=== PATIENT | male | born 1965 | race Caucasian/White ===

== ENCOUNTER 2016-08-02 12:28 | Emergency (ER) | payer OTHER ==
--- NOTE | 2016-08-02 13:48 | ED ---
General Adult HPI - General Chief complaint: Psychiatric Symptoms Stated complaint: Mental Health Time Seen by Provider: 08/02/16 13:32 Source: patient, RN notes reviewed Mode of arrival: ambulatory Limitations: no limitations - History of Present Illness Initial comments: Patient's a 51-year-old male who presents emergency room today with a chief complaint depression. He states he's been more depressed lately. He states that he still depressed about losing his that happened 3 years ago. States car broke down. States is living with a roommate who is an alcoholic and he feels like he has to walk on pins and needles around the house. Patient states all these things seem to be building up in recently his noticed that he does not seem to want to get out of bed. He states he has been more depressed. He denies any thoughts of suicide. Denies any homicidal ideation. Patient denies any other complaints or symptoms at this time. Patient denies any recent fever, chills, shortness of breath, chest pain, back pain, abdominal pain, nausea or vomiting, numbness or tingling, dysuria or hematuria, constipation or diarrhea, headaches or visual changes, or any other complaints. - Related Data Home Medications Medication Instructions Recorded Confirmed Albuterol Inhaler [Ventolin Hfa 2 puff INHALATION RT-Q6H PRN 12/17/15 08/02/16 Inhaler] Albuterol Nebulized [Ventolin 2.5 mg INHALATION RT-Q4H PRN 12/17/15 08/02/16 Nebulized] Cetirizine HCl 10 mg PO DAILY 12/17/15 08/02/16 Gemfibrozil [Gemfibrozil] 600 mg PO BID 12/17/15 08/02/16 Montelukast [Singulair] 10 mg PO HS 12/17/15 08/02/16 Pravastatin Sodium [Pravachol] 40 mg PO DAILY 12/17/15 08/02/16 amLODIPine [Norvasc] 5 mg PO DAILY 12/17/15 08/02/16 predniSONE 10 mg PO DAILY 08/02/16 08/02/16 Allergies Allergy/AdvReac Type Severity Reaction Status Date / Time cephalexin monohydrate Allergy Nausea & Verified 08/02/16 13:55 [From Keflex] Vomiting ergocalciferol (vitamin D2) Allergy WEAKNESS Verified 08/02/16 13:55 [From Vitamin D2] Review of Systems ROS Statement: Those systems with pertinent positive or pertinent negative responses have been documented in the HPI. ROS Other: All systems not noted in ROS Statement are negative. Past Medical History Past Medical History: Asthma, COPD, Hyperlipidemia, Hypertension History of Any Multi-Drug Resistant Organisms: None Reported Past Surgical History: No Surgical Hx Reported Past Psychological History: Depression Smoking Status: Current every day smoker Past Alcohol Use History: Rare Past Drug Use History: Marijuana - Past Family History Father Family Medical History: Asthma General Exam - General Exam Comments Initial Comments: General: The patient is awake and alert, in no distress, and does not appear acutely ill. Eye: Pupils are equal, round and reactive to light, extra-ocular movements are intact. No nystagmus. There is normal conjunctiva bilaterally. No signs of icterus. Ears, nose, mouth and throat: There are moist mucous membranes and no oral lesions. Neck: The neck is supple, there is no tenderness or JVD. Cardiovascular: There is a regular rate and rhythm. No murmur, rub or gallop is appreciated. Respiratory: Lungs are clear to auscultation, respirations are non-labored, breath sounds are equal. No wheezes, stridor, rales, or rhonchi. Musculoskeletal: Normal ROM, no tenderness. Strength 5/5. Sensation intact. Pulses equal bilaterally 2+. Neurological: A&O x 3. CN II-XII intact, There are no obvious motor or sensory deficits. Coordination appears grossly intact. Speech is normal. Skin: Skin is warm and dry and no rashes or lesions are noted. Psychiatric: Cooperative. Limitations: no limitations Course Vital Signs 08/02/16 13:06 Temperature 99.0 F Pulse Rate 74 Respiratory 20 Rate Blood Pressure 138/74 O2 Sat by Pulse 98 Oximetry Medical Decision Making - Medical Decision Making 51-year-old male coming in for depression. Denies any suicidal thoughts or plans. Patient has been seen here in the emergency room by mental health. They recommend the patient may be discharged and follow-up with crisis line to set up a appointment for Thursday. Patient is wearing this plan states understanding and is in agreement with it. He is been advised that he may return to emergency room if any symptoms increase or worsen or for any other concerns. - Lab Data Lab Results 05/06/17 Range/Units 13:26 Urine Opiates Screen Not Detected (NotDetected) Ur Oxycodone Screen Not Detected (NotDetected) Urine Methadone Screen Not Detected (NotDetected) Ur Propoxyphene Screen Not Detected (NotDetected) Ur Barbiturates Screen Not Detected (NotDetected) U Tricyclic Antidepress Detected H (NotDetected) Ur Phencyclidine Scrn Not Detected (NotDetected) Ur Amphetamines Screen Not Detected (NotDetected) U Methamphetamines Scrn Not Detected (NotDetected) U Benzodiazepines Scrn Not Detected (NotDetected) Urine Cocaine Screen Not Detected (NotDetected) U Marijuana (THC) Screen Not Detected (NotDetected) Disposition Clinical Impression: Depression Disposition: HOME SELF-CARE Condition: Good Instructions: Depression (ED) Additional Instructions: Please follow-up with the crisis line as discussed here in the emergency room. Please return here to emergency room if any symptoms increase or worsen or for any other concerns. Time of Disposition: 15:14
[2016-08-02 15:49] VITALS: BP 133/77; PULSE 69; RESP 18; TEMP 97.8
== END 2016-08-02 15:49 | disposition home or self-care (01) ==
LOC: EC 12:28
DX: F32.9 Major depressive disorder, single episode, unspecified (principal); I10 Essential (primary) hypertension; E78.5 Hyperlipidemia, unspecified; F17.200 Nicotine dependence, unspecified, uncomplicated; Z79.52 Long term (current) use of systemic steroids; Z88.1 Allergy status to other antibiotic agents; Z88.8 Allergy status to other drugs, medicaments and biological substances; Z79.899 Other long term (current) drug therapy
CPT/HCPCS: 80306; 82075; 99285

== ENCOUNTER 2019-09-03 11:27 | Emergency (ER) | payer OTHER ==
[2019-09-03 11:32] VITALS: RESP 18; TEMP 97.4
[2019-09-03 11:36] LABS: Glucose,Whole Blood 114 mg/dL (75-99)
[2019-09-03] MEDS ORDERED: LORazepam 2 MG/ML INJ IV STA (11:46)
--- NOTE | 2019-09-03 12:16 | ED ---
Anxiety HPI - General Chief Complaint: Anxiety Stated Complaint: Anixety Time Seen by Provider: 09/03/19 11:32 Source: patient, EMS, RN notes reviewed, old records reviewed Mode of arrival: EMS - History of Present Illness Initial Comments: 54-year-old male presents emergency department today with complaints of anxiety and shakiness. Patient's been under immense stress stating that he has not been able to calm down and stop his racing thoughts. He states he's had some jose miguel mplated suicidal thoughts. Patient reports that he felt that his heart was racing today and is concerned this problem with his heart. He states that he does complain of some nausea and is unable to eat because of his stress and anxiety. Patient states that he has no previous cardiac history. Patient is a smoker. - Related Data Home Medications: Home Medications Medication Instructions Recorded Confirmed Albuterol Inhaler (Mhu) [Ventolin 2 puff INHALATION RT-Q6H PRN 12/17/15 08/02/16 Hfa Inhaler (Mhu)] Albuterol Nebulized [Ventolin 2.5 mg INHALATION RT-Q4H PRN 12/17/15 08/02/16 Nebulized] Cetirizine HCl 10 mg PO DAILY 12/17/15 08/02/16 Gemfibrozil 600 mg PO BID 12/17/15 08/02/16 Montelukast [Singulair] 10 mg PO HS 12/17/15 08/02/16 Pravastatin Sodium [Pravachol] 40 mg PO DAILY 12/17/15 08/02/16 amLODIPine [Norvasc] 5 mg PO DAILY 12/17/15 08/02/16 predniSONE 10 mg PO DAILY 08/02/16 08/02/16 Allergies/Adverse Reactions: Allergies Allergy/AdvReac Type Severity Reaction Status Date / Time cephalexin monohydrate Allergy Nausea & Verified 09/03/19 11:29 [From Keflex] Vomiting ergocalciferol (vitamin D2) Allergy WEAKNESS Verified 09/03/19 11:29 [From Vitamin D2] Review of Systems ROS Statement: Those systems with pertinent positive or pertinent negative responses have been documented in the HPI. ROS Other: All systems not noted in ROS Statement are negative. Past Medical History Past Medical History: Asthma, COPD, Hyperlipidemia, Hypertension History of Any Multi-Drug Resistant Organisms: None Reported Past Surgical History: No Surgical Hx Reported Past Psychological History: Anxiety, Depression Smoking Status: Current every day smoker Past Alcohol Use History: Occasional Past Drug Use History: Marijuana - Past Family History Father Family Medical History: Asthma General Exam - General Exam Comments Initial Comments: 54-year-old male. Alert and oriented. No significant distress. General appearance: alert, anxious Head exam: Present: atraumatic, normocephalic, normal inspection Eye exam: Present: normal appearance, PERRL, EOMI. Absent: scleral icterus, conjunctival injection, periorbital swelling ENT exam: Present: normal exam, mucous membranes moist Neck exam: Present: normal inspection. Absent: tenderness, meningismus, lymphadenopathy Respiratory exam: Present: normal lung sounds bilaterally, other (Patient has minimal wheeze but reports a smoker. Denies any dyspnea.). Absent: respiratory distress, wheezes, rales, rhonchi, stridor Cardiovascular Exam: Present: regular rate, normal rhythm, normal heart sounds. Absent: systolic murmur, diastolic murmur, rubs, gallop, clicks GI/Abdominal exam: Present: soft, normal bowel sounds. Absent: distended, tenderness, guarding, rebound, rigid Back exam: Present: normal inspection Neurological exam: Present: alert, oriented X3, CN II-XII intact Psychiatric exam: Present: normal mood, agitated, anxious (Patient is anxious and shaky.). Absent: normal affect Skin exam: Present: warm, dry, intact, normal color. Absent: rash Course Vital Signs 09/03/19 11:29 Temperature 97.4 F L Pulse Rate 97 Respiratory 18 Rate Blood Pressure 124/81 O2 Sat by Pulse 100 Oximetry Medical Decision Making - Medical Decision Making This Patient is a 54-year-old male presents return today with acute anxiety. He states he has been under a lot of stress at home and feels overwhelmed. He stated that he did have some palpitations once occurred. He arrived quite shaky and anxious. He is given IV fluids, did have a cardiac workup which had a normal EKG and normal troponin. Chest x-ray shows COPD and is a smoker but he denies any acute dyspnea. Patient's labs are otherwise unremarkable. Patient was given Ativan and is resting comfortably in bed with shaky and anxious appearing. He didn't mention some passive suicidal thoughts but no plan. He agreed to see EPS. EPS evaluated the Patient and agreed that Patient can follow-up with his [facility]. He signed a safety plan and knows to return if necessary. Patient understands treatment plan will comply. Advised to continue Xanax at home. - Lab Data Result diagrams: 09/03/19 12:00 09/03/19 12:00 Lab Results 09/03/19 09/03/19 09/03/19 Range/Units 11:34 12:00 12:00 WBC 10.2 (3.8-10.6) k/uL RBC 5.00 (4.30-5.90) m/uL Hgb 15.7 (13.0-17.5) gm/dL Hct 47.0 (39.0-53.0) % MCV 94.0 (80.0-100.0) fL MCH 31.4 (25.0-35.0) pg MCHC 33.3 (31.0-37.0) g/dL RDW 12.9 (11.5-15.5) % Plt Count 303 (150-450) k/uL Neutrophils % 72 % Lymphocytes % 17 % Monocytes % 5 % Eosinophils % 4 % Basophils % 1 % Neutrophils # 7.4 (1.3-7.7) k/uL Lymphocytes # 1.8 (1.0-4.8) k/uL Monocytes # 0.5 (0-1.0) k/uL Eosinophils # 0.4 (0-0.7) k/uL Basophils # 0.1 (0-0.2) k/uL PT 10.0 (9.0-12.0) sec INR 1.0 (<1.2) APTT 20.8 L (22.0-30.0) sec Sodium (137-145) mmol/L Potassium (3.5-5.1) mmol/L Chloride (98-107) mmol/L Carbon Dioxide (22-30) mmol/L Anion Gap mmol/L BUN (9-20) mg/dL Creatinine (0.66-1.25) mg/dL Est GFR (CKD-EPI)AfAm (>60 ml/min/1.73 sqM) Est GFR (CKD-EPI)NonAf (>60 ml/min/1.73 sqM) Glucose (74-99) mg/dL POC Glucose (mg/dL) 114 H (75-99) mg/dL POC Glu [employer] ID Tessaa, II, Truong Calcium (8.4-10.2) mg/dL Magnesium (1.6-2.3) mg/dL Total Bilirubin (0.2-1.3) mg/dL AST (17-59) U/L ALT (4-49) U/L Alkaline Phosphatase (38-126) U/L Troponin I (0.000-0.034) ng/mL NT-Pro-B Natriuret Pep pg/mL Total Protein (6.3-8.2) g/dL Albumin (3.5-5.0) g/dL Urine Opiates Screen (NotDetected) Ur Oxycodone Screen (NotDetected) Urine Methadone Screen (NotDetected) Ur Propoxyphene Screen (NotDetected) Ur Barbiturates Screen (NotDetected) U Tricyclic Antidepress (NotDetected) Ur Phencyclidine Scrn (NotDetected) Ur Amphetamines Screen (NotDetected) U Methamphetamines Scrn (NotDetected) U Benzodiazepines Scrn (NotDetected) Urine Cocaine Screen (NotDetected) U Marijuana (THC) Screen (NotDetected) Serum Alcohol mg/dL 09/03/19 09/03/19 09/03/19 Range/Units 12:00 12:00 12:00 WBC (3.8-10.6) k/uL RBC (4.30-5.90) m/uL Hgb (13.0-17.5) gm/dL Hct (39.0-53.0) % MCV (80.0-100.0) fL MCH (25.0-35.0) pg MCHC (31.0-37.0) g/dL RDW (11.5-15.5) % Plt Count (150-450) k/uL Neutrophils % % Lymphocytes % % Monocytes % % Eosinophils % % Basophils % % Neutrophils # (1.3-7.7) k/uL Lymphocytes # (1.0-4.8) k/uL Monocytes # (0-1.0) k/uL Eosinophils # (0-0.7) k/uL Basophils # (0-0.2) k/uL PT (9.0-12.0) sec INR (<1.2) APTT (22.0-30.0) sec Sodium 137 (137-145) mmol/L Potassium 4.4 (3.5-5.1) mmol/L Chloride 106 (98-107) mmol/L Carbon Dioxide 20 L (22-30) mmol/L Anion Gap 11 mmol/L BUN 11 (9-20) mg/dL Creatinine 0.84 (0.66-1.25) mg/dL Est GFR (CKD-EPI)AfAm >90 (>60 ml/min/1.73 sqM) Est GFR (CKD-EPI)NonAf >90 (>60 ml/min/1.73 sqM) Glucose 110 H (74-99) mg/dL POC Glucose (mg/dL) (75-99) mg/dL POC Glu [employer] ID Calcium 9.7 (8.4-10.2) mg/dL Magnesium 2.0 (1.6-2.3) mg/dL Total Bilirubin 0.7 (0.2-1.3) mg/dL AST 37 (17-59) U/L ALT 32 (4-49) U/L Alkaline Phosphatase 54 (38-126) U/L Troponin I <0.012 (0.000-0.034) ng/mL NT-Pro-B Natriuret Pep 109 pg/mL Total Protein 7.6 (6.3-8.2) g/dL Albumin 4.4 (3.5-5.0) g/dL Urine Opiates Screen (NotDetected) Ur Oxycodone Screen (NotDetected) Urine Methadone Screen (NotDetected) Ur Propoxyphene Screen (NotDetected) Ur Barbiturates Screen (NotDetected) U Tricyclic Antidepress (NotDetected) Ur Phencyclidine Scrn (NotDetected) Ur Amphetamines Screen (NotDetected) U Methamphetamines Scrn (NotDetected) U Benzodiazepines Scrn (NotDetected) Urine Cocaine Screen (NotDetected) U Marijuana (THC) Screen (NotDetected) Serum Alcohol <10 mg/dL 09/03/19 Range/Units 12:00 WBC (3.8-10.6) k/uL RBC (4.30-5.90) m/uL Hgb (13.0-17.5) gm/dL Hct (39.0-53.0) % MCV (80.0-100.0) fL MCH (25.0-35.0) pg MCHC (31.0-37.0) g/dL RDW (11.5-15.5) % Plt Count (150-450) k/uL Neutrophils % % Lymphocytes % % Monocytes % % Eosinophils % % Basophils % % Neutrophils # (1.3-7.7) k/uL Lymphocytes # (1.0-4.8) k/uL Monocytes # (0-1.0) k/uL Eosinophils # (0-0.7) k/uL Basophils # (0-0.2) k/uL PT (9.0-12.0) sec INR (<1.2) APTT (22.0-30.0) sec Sodium (137-145) mmol/L Potassium (3.5-5.1) mmol/L Chloride (98-107) mmol/L Carbon Dioxide (22-30) mmol/L Anion Gap mmol/L BUN (9-20) mg/dL Creatinine (0.66-1.25) mg/dL Est GFR (CKD-EPI)AfAm (>60 ml/min/1.73 sqM) Est GFR (CKD-EPI)NonAf (>60 ml/min/1.73 sqM) Glucose (74-99) mg/dL POC Glucose (mg/dL) (75-99) mg/dL POC Glu [employer] ID Calcium (8.4-10.2) mg/dL Magnesium (1.6-2.3) mg/dL Total Bilirubin (0.2-1.3) mg/dL AST (17-59) U/L ALT (4-49) U/L Alkaline Phosphatase (38-126) U/L Troponin I (0.000-0.034) ng/mL NT-Pro-B Natriuret Pep pg/mL Total Protein (6.3-8.2) g/dL Albumin (3.5-5.0) g/dL Urine Opiates Screen Not Detected (NotDetected) Ur Oxycodone Screen Not Detected (NotDetected) Urine Methadone Screen Not Detected (NotDetected) Ur Propoxyphene Screen Not Detected (NotDetected) Ur Barbiturates Screen Not Detected (NotDetected) U Tricyclic Antidepress Not Detected (NotDetected) Ur Phencyclidine Scrn Not Detected (NotDetected) Ur Amphetamines Screen Not Detected (NotDetected) U Methamphetamines Scrn Not Detected (NotDetected) U Benzodiazepines Scrn Detected H (NotDetected) Urine Cocaine Screen Not Detected (NotDetected) U Marijuana (THC) Screen Detected H (NotDetected) Serum Alcohol mg/dL 09/03/19 12:15 EKG shows normal sinus rhythm, normal EKG. Ventricular rate of 91 beats were minute period. It was 156 ms. Frustration is 90 ms. QT QTc is 380/467 ms. - Radiology Data Radiology results: report reviewed Chest x-ray shows evidence of COPD. Disposition Clinical Impression: Anxiety Disposition: HOME SELF-CARE Condition: Good Instructions (If sedation given, give patient instructions): Generalized Anxiety Disorder (ED) Additional Instructions: Please use medication of Xanax at home as discussed. Please follow up with family doctor if symptoms have not improved over the next two days. Please return to the emergency room if your symptoms increase or worsen or for any other concerns. Is patient prescribed a controlled substance at d/c from ED?: No Referrals: Taina Osman MD [Primary Care Provider] - 1-2 days Time of Disposition: 14:31
[2019-09-03 12:21] LABS: Basophils # (A) 0.1 k/uL (0-0.2); Basophils % (A) 1 %; Eosinophils # (A) 0.4 k/uL (0-0.7); Eosinophils % (A) 4 %; HGB 15.7 gm/dL (13.0-17.5); Lymphocytes # (A) 1.8 k/uL (1.0-4.8); Lymphocytes % (A) 17 %; MCH 31.4 pg (25.0-35.0); MCHC 33.3 g/dL (31.0-37.0); Mean Platelet Volume 8.2; Monocytes # (A) 0.5 k/uL (0-1.0); Monocytes % (A) 5 %; Neutrophils # (A) 7.4 k/uL (1.3-7.7); Neutrophils % (A) 72 %; Platelet Count 303 k/uL (150-450); RDW 12.9 % (11.5-15.5); WBC 10.2 k/uL (3.8-10.6)
[2019-09-03 12:29] LABS: ALT 32 U/L (4-49); AST 37 U/L (17-59); African American GFR (CKD) >90 (>60 ml/min/1.73 sqM); Albumin 4.4 g/dL (3.5-5.0); Alcohol <10 mg/dL; Alkaline Phosphatase 54 U/L (38-126); Anion Gap 11 mmol/L; Blood Urea Nitrogen 11 mg/dL (9-20); Calcium 9.7 mg/dL (8.4-10.2); Carbon Dioxide 20 mmol/L (22-30); Chloride 106 mmol/L (98-107); Glucose 110 mg/dL (74-99); Non-African American GFR(CKD) >90 (>60 ml/min/1.73 sqM); Potassium 4.4 mmol/L (3.5-5.1); Sodium 137 mmol/L (137-145); Total Bilirubin 0.7 mg/dL (0.2-1.3); Total Protein 7.6 g/dL (6.3-8.2)
--- NOTE | 2019-09-03 12:30 | XR ---
EXAMINATION TYPE: XR chest 2V DATE OF EXAM: 09/03/2019 HISTORY: Chest Pain. REFERENCE: Previous study dated 01/23/2016. FINDINGS: Lung volumes are prominent. The lungs are clear. Pleural spaces are clear. The heart is not enlarged. IMPRESSION: COPD.
[2019-09-03 12:41] LABS: Amphetamine Screen,Urine Not Detected (NotDetected); Barbiturate Screen,Urine Not Detected (NotDetected); Benzodiazepines Screen,Urine Detected (NotDetected); Cocaine Screen,Urine Not Detected (NotDetected); Methadone Screen, Urine Not Detected (NotDetected); Opiate Screen,Urine Not Detected (NotDetected); Oxycodone Screen, Urine Not Detected (NotDetected); Phencyclidine Screen,Urine Not Detected (NotDetected); Tricyclic Antidepressant,Urine Not Detected (NotDetected); Urn Cannabinoid Scrn Detected (NotDetected)
[2019-09-03 12:48] LABS: Partial Thromboplastin Time 20.8 sec (22.0-30.0)
[2019-09-03] MEDS ORDERED: LORazepam 1 MG TAB PO STA (14:42)
[2019-09-03 14:59] VITALS: BP 122/81; PULSE 87
== END 2019-09-03 14:58 | disposition home or self-care (01) ==
LOC: EC 11:27
DX: F41.9 Anxiety disorder, unspecified (principal); J44.9 Chronic obstructive pulmonary disease, unspecified; R00.2 Palpitations; R11.0 Nausea; F17.200 Nicotine dependence, unspecified, uncomplicated; E78.5 Hyperlipidemia, unspecified; I10 Essential (primary) hypertension; Z78.9 Other specified health status; Z79.51 Long term (current) use of inhaled steroids; Z79.899 Other long term (current) drug therapy; Z79.52 Long term (current) use of systemic steroids; Z88.8 Allergy status to other drugs, medicaments and biological substances; Z88.1 Allergy status to other antibiotic agents
CPT/HCPCS: 36415; 93005; 83880; 80053; 83735; 84484; 85025; 85610; 85730; 80306; 71046; 96374; 99285; G0480; J2060; 80320

== ENCOUNTER 2019-09-19 10:20 | Emergency (ER) | payer OTHER ==
[2019-09-19 10:34] VITALS: RESP 18
--- NOTE | 2019-09-19 10:50 | ED ---
Psych HPI - General Chief Complaint: Psychiatric Symptoms Stated Complaint: Depression Time Seen by Provider: 09/19/19 10:36 Source: patient Mode of arrival: ambulatory - History of Present Illness Initial Comments: Patient is 54-year-old male with history of depression presenting to the emergency department with a chief complaint of depression. Patient states he was in emergency department recently for anxiety. Patient reports over the last week she does not feel like going out, waking up, doing daily chores or going to the grocery store to obtain groceries. Patient reports that he hopes she does not wake up in the morning. Patient does report thoughts of self-harm. Patient denies any suicidal thoughts or ideations. He denies any homicidal thoughts or ideations. States he takes Xanax daily but it does not help his symptoms. - Related Data Home Medications Medication Instructions Recorded Confirmed Albuterol Inhaler (Mhu) [Ventolin 2 puff INHALATION RT-QID PRN 12/17/15 09/19/19 Hfa Inhaler (Mhu)] Albuterol Nebulized [Ventolin 2.5 mg INHALATION RT-Q4H PRN 12/17/15 09/19/19 Nebulized] Cetirizine HCl 10 mg PO DAILY 12/17/15 09/19/19 Montelukast [Singulair] 10 mg PO HS 12/17/15 09/19/19 Pravastatin Sodium [Pravachol] 40 mg PO DAILY 12/17/15 09/19/19 ALPRAZolam [Xanax] 0.5 mg PO BID PRN 09/19/19 09/19/19 Fenofibrate Nanocrystallized 145 mg PO DAILY 09/19/19 09/19/19 [Fenofibrate] Fluticasone/Salmeterol 1 puff INHALATION BID 09/19/19 09/19/19 [Fluticasone-Salmeterol 232-14] amLODIPine [Norvasc] 10 mg PO DAILY 09/19/19 09/19/19 Allergies Allergy/AdvReac Type Severity Reaction Status Date / Time cephalexin monohydrate Allergy Nausea & Verified 09/19/19 11:20 [From Keflex] Vomiting ergocalciferol (vitamin D2) Allergy WEAKNESS Verified 09/19/19 11:20 [From Vitamin D2] Review of Systems ROS Statement: Those systems with pertinent positive or pertinent negative responses have been documented in the HPI. ROS Other: All systems not noted in ROS Statement are negative. Past Medical History Past Medical History: Asthma, COPD, Hyperlipidemia, Hypertension History of Any Multi-Drug Resistant Organisms: None Reported Past Surgical History: No Surgical Hx Reported Additional Past Surgical History / Comment(s): L arm Past Psychological History: Anxiety, Depression Smoking Status: Current every day smoker Past Alcohol Use History: Occasional Past Drug Use History: Marijuana - Past Family History Father Family Medical History: Asthma General Exam Limitations: no limitations General appearance: alert, in no apparent distress, obese Head exam: Present: atraumatic, normocephalic, normal inspection Eye exam: Present: normal appearance, PERRL, EOMI Pupils: Present: normal accommodation ENT exam: Present: normal exam, normal oropharynx, mucous membranes moist Neck exam: Present: normal inspection, full ROM. Absent: tenderness, meningismus Respiratory exam: Present: normal lung sounds bilaterally. Absent: respiratory distress, wheezes Cardiovascular Exam: Present: regular rate, normal rhythm, normal heart sounds Extremities exam: Present: normal inspection, full ROM, normal capillary refill, other (+2 ulnar and radial pulses bilaterally.). Absent: tenderness Back exam: Present: normal inspection, full ROM. Absent: tenderness Neurological exam: Present: alert, oriented X3, normal gait Psychiatric exam: Present: normal affect, depressed Skin exam: Present: warm, dry, intact, normal color Course Vital Signs 09/19/19 09/19/19 10:30 13:57 Temperature 98.2 F 97.3 F L Pulse Rate 68 88 Respiratory 18 18 Rate Blood Pressure 109/67 146/82 O2 Sat by Pulse 97 97 Oximetry Medical Decision Making - Medical Decision Making Patient is a 54-year-old male presenting to the emergency department with chief complaint of depression. No suicidal thoughts or ideations. EPS evaluated the patient. I spoke with Rosario, EPS nurse, who stated the patient had complained that his current roommate has bedbugs and the patient does not want to go live there. She provided him with additional information regarding [facility] that could potentially help him with housing. Safety plan discussed. No suicidal or homicidal thoughts or ideations. Return parameters discussed with patient. Case discussed with physician. Disposition Clinical Impression: Adjustment reaction of adolescence with depressed mood Disposition: HOME SELF-CARE Condition: Good Instructions (If sedation given, give patient instructions): Depression (ED) Additional Instructions: Follow up with [facility]. Return to emergency department if symptoms worsen. Is patient prescribed a controlled substance at d/c from ED?: No Referrals: Taina Osman MD [Primary Care Provider] - 1-2 days Time of Disposition: 14:00
[2019-09-19 13:58] VITALS: BP 146/82; PULSE 88; TEMP 97.3
== END 2019-09-19 13:57 | disposition home or self-care (01) ==
LOC: EC 10:20
DX: F43.21 Adjustment disorder with depressed mood (principal); I10 Essential (primary) hypertension; J44.9 Chronic obstructive pulmonary disease, unspecified; E78.5 Hyperlipidemia, unspecified; F41.9 Anxiety disorder, unspecified; F32.9 Major depressive disorder, single episode, unspecified; F17.200 Nicotine dependence, unspecified, uncomplicated; Z79.899 Other long term (current) drug therapy; Z88.1 Allergy status to other antibiotic agents; Z88.8 Allergy status to other drugs, medicaments and biological substances
CPT/HCPCS: 82075; 99284

== ENCOUNTER 2019-09-20 16:02 | Inpatient (IN) | payer MEDICAID, OTHER ==
[2019-09-20] MEDS ORDERED: DIPH,PERTUS(ACELL)TETVAC-LF 0.5 ML VIAL IM ONE (16:24)
--- NOTE | 2019-09-20 16:27 | ED ---
Psych HPI - General Chief Complaint: Psychiatric Symptoms Stated Complaint: Mental Health Time Seen by Provider: 09/20/19 16:12 Source: patient, RN notes reviewed Mode of arrival: ambulatory Limitations: no limitations - History of Present Illness Initial Comments: 54-year-old male presents emergency Department with police for psychiatric evaluation. Patient was seen here yesterday and discharge. Patient does have history of depression patient states she just does not want to live anymore. He gives no reason why. Patient was combative, punching his windshield of his vehicle, fighting with police. Patient is petition by police at this point. Patient states he is suicidal denies being homicidal does admit to marijuana use and alcohol use. - Related Data Home Medications Medication Instructions Recorded Confirmed Albuterol Nebulized [Ventolin 2.5 mg INHALATION RT-Q4H PRN 12/17/15 09/20/19 Nebulized] Cetirizine HCl 10 mg PO DAILY 12/17/15 09/20/19 Pravastatin Sodium [Pravachol] 40 mg PO DAILY 12/17/15 09/20/19 ALPRAZolam [Xanax] 0.5 mg PO BID PRN 09/19/19 09/20/19 Fenofibrate Nanocrystallized 145 mg PO DAILY 09/19/19 09/20/19 [Fenofibrate] Fluticasone/Salmeterol 1 puff INHALATION RT-BID 09/19/19 09/20/19 [Fluticasone-Salmeterol 232-14] amLODIPine [Norvasc] 10 mg PO DAILY 09/19/19 09/20/19 Albuterol Inhaler [Ventolin Hfa 1 puff INHALATION RT-QID PRN 09/20/19 09/20/19 Inhaler] Allergies Allergy/AdvReac Type Severity Reaction Status Date / Time cephalexin monohydrate Allergy Nausea & Verified 09/20/19 17:07 [From Keflex] Vomiting ergocalciferol (vitamin D2) Allergy WEAKNESS Verified 09/20/19 17:07 [From Vitamin D2] Review of Systems ROS Statement: Those systems with pertinent positive or pertinent negative responses have been documented in the HPI. ROS Other: All systems not noted in ROS Statement are negative. Past Medical History Past Medical History: Asthma, COPD, Hyperlipidemia, Hypertension History of Any Multi-Drug Resistant Organisms: None Reported Past Surgical History: No Surgical Hx Reported Additional Past Surgical History / Comment(s): L arm Past Psychological History: Anxiety, Depression Smoking Status: Current every day smoker Past Alcohol Use History: Occasional Past Drug Use History: Marijuana - Past Family History Father Family Medical History: Asthma General Exam Limitations: no limitations General appearance: alert, in no apparent distress Head exam: Present: atraumatic, normocephalic, normal inspection Eye exam: Present: normal appearance, PERRL, EOMI. Absent: scleral icterus, conjunctival injection, periorbital swelling ENT exam: Present: normal exam, normal oropharynx, mucous membranes moist, TM's normal bilaterally Neck exam: Present: normal inspection, full ROM. Absent: tenderness, meningismus, lymphadenopathy Respiratory exam: Present: normal lung sounds bilaterally. Absent: respiratory distress, wheezes, rales, rhonchi, stridor Cardiovascular Exam: Present: regular rate, normal rhythm, normal heart sounds. Absent: systolic murmur, diastolic murmur, rubs, gallop, clicks Extremities exam: Present: other (Bilateral hand tenderness, small abrasions noted) Neurological exam: Present: alert, oriented X3, CN II-XII intact Psychiatric exam: Present: depressed, agitated Skin exam: Present: warm, dry, intact, normal color. Absent: rash Course Vital Signs 09/20/19 09/20/19 16:04 16:25 Temperature 98.5 F Pulse Rate 60 Respiratory 18 Rate Blood Pressure 124/75 O2 Sat by Pulse 100 Oximetry Procedures - Restraint - Face to Face Restraint Occurrence 1 Patient's Immediate Situation: Endangers staff safety, Violent behavior Patient's Reaction to the Intervention: Cooperative, Angry, Aggressive, Combative, Resistive to care Patient's Medical & Behavioral Condition: Awake, Alert, Agitated Need to Continue or Terminate Restraint or Seclusion: Continue Face to Face Eval of Restraint Date: 09/20/19 Face to Face Eval of Restraint Time: 16:49 Medical Decision Making - Medical Decision Making Patient evaluated by EPS case discussed with psychiatrist recommend inpatient t reatment. Disposition Clinical Impression: Depression, Suicidal ideation Disposition: TRANSFER TO PSYCH HOSP/UNIT Referrals: Taina Osman MD [Primary Care Provider] - 1-2 days
--- NOTE | 2019-09-20 16:43 | XR ---
EXAMINATION TYPE: XR hand complete bilateral DATE OF EXAM: 09/20/2019 COMPARISON: NONE HISTORY: Punching injury. Pain. TECHNIQUE: 3 views each hand. FINDINGS: I see no fracture nor dislocation. Joint spaces are fairly normal. There are no pathologic calcifications. Metacarpals appear intact. Carpal bones are intact. There is mild spurring and narrowing at the DIP joint of the right index finger. IMPRESSION: No acute abnormality of the left and right hand. No fracture.
[2019-09-20] MEDS ORDERED: LORazepam 2 MG/ML INJ IM STA (16:45)
[2019-09-20] MEDS ORDERED: ZIPRASIDONE 20 MG VIAL IM STA (16:45)
[2019-09-20] MEDS ORDERED: MAGNESIUM HYDROXIDE 2,400 MG/10 ML CUP PO PRN (20:32)
[2019-09-20] MEDS ORDERED: MAG HYDROX/AL HYDROX/SIMETH 30 ML CUP PO PRN (20:32)
[2019-09-20] MEDS ORDERED: ACETAMINOPHEN TAB 325 MG TAB PO PRN (20:32)
[2019-09-20] MEDS ORDERED: ZIPRASIDONE 20 MG VIAL IM PRN (20:32)
[2019-09-20] MEDS ORDERED: LORazepam 2 MG/ML INJ IM PRN (20:34)
[2019-09-20] MEDS: NICOTINE 14MG/24HR PATCH TRANSDERM SCH (22:38)
[2019-09-20] MEDS: LORazepam 1 MG TAB PO PRN (23:25)
[2019-09-20] MEDS: ALBUTEROL NEBULIZED 2.5 MG/3 ML INHALATION PRN (23:32)
[2019-09-21] MEDS: FENOFIBRATE 160 MG TAB PO SCH (08:58)
[2019-09-21] MEDS: amLODIPine 10 MG TAB PO SCH (08:58)
[2019-09-21] MEDS: NICOTINE 14MG/24HR PATCH TRANSDERM SCH (08:59)
[2019-09-21] MEDS: PRAVASTATIN SODIUM 40 MG TAB PO SCH (08:59)
[2019-09-21] MEDS: LORATADINE 10 MG TAB PO SCH (08:59)
[2019-09-21] MEDS ORDERED: NICOTINE 14MG/24HR PATCH TRANSDERM SCH (09:00)
[2019-09-21 09:05] LABS: Basophils % (A) 0 %; Eosinophils # (A) 0.3 k/uL (0-0.7); Eosinophils % (A) 2 %; HCT 41.7 % (39.0-53.0); HGB 13.5 gm/dL (13.0-17.5); Lymphocytes # (A) 1.7 k/uL (1.0-4.8); Lymphocytes % (A) 12 %; MCHC 32.4 g/dL (31.0-37.0); MCV 95.7 fL (80.0-100.0); Mean Platelet Volume 7.9; Monocytes # (A) 0.8 k/uL (0-1.0); Monocytes % (A) 6 %; Neutrophils # (A) 10.5 k/uL (1.3-7.7); Neutrophils % (A) 78 %; Platelet Count 239 k/uL (150-450); RBC 4.36 m/uL (4.30-5.90); WBC 13.4 k/uL (3.8-10.6)
[2019-09-21 09:24] LABS: ALT 28 U/L (4-49); AST 39 U/L (17-59); African American GFR (CKD) >90 (>60 ml/min/1.73 sqM); Albumin 3.7 g/dL (3.5-5.0); Alkaline Phosphatase 48 U/L (38-126); Anion Gap 8 mmol/L; Blood Urea Nitrogen 19 mg/dL (9-20); Carbon Dioxide 24 mmol/L (22-30); Chloride 108 mmol/L (98-107); Cholesterol 135 mg/dL (<200); Glucose 123 mg/dL (74-99); HDL Cholesterol 33 mg/dL (40-60); LDL Cholesterol,Calculated 40 mg/dL (0-99); Non-African American GFR(CKD) >90 (>60 ml/min/1.73 sqM); Potassium 3.9 mmol/L (3.5-5.1); Sodium 140 mmol/L (137-145); Total Bilirubin 0.3 mg/dL (0.2-1.3); Total Protein 6.7 g/dL (6.3-8.2); Triglycerides 309 mg/dL (<150)
[2019-09-21] MEDS: SYMBICORT 160-4.5 MCG INHALER (MHU) INHALATION SCH ×2 (10:41→22:11)
[2019-09-21] MEDS: ESCITALOPRAM 10 MG TAB PO SCH (12:38)
--- NOTE | 2019-09-21 12:56 | P.HP ---
Psychiatric H&P - . H&P Date: 09/21/19 History & Physical: Allergies Allergy/AdvReac Type Severity Reaction Status Date / Time cephalexin monohydrate Allergy Nausea & Verified 09/20/19 17:07 From Keflex Vomiting ergocalciferol (vitamin D2) Allergy WEAKNESS Verified 09/20/19 17:07 From Vitamin D2 Vital Signs Temp 98.1 F 09/21/19 06:14 Pulse 87 09/21/19 09:01 Resp 20 09/21/19 09:01 BP 138/61 09/21/19 09:01 Pulse Ox 95 09/21/19 06:14 Intake & Output 09/20/19 09/21/19 09/21/19 18:59 06:59 18:59 Weight 122.924 kg 123.179 kg Laboratory Last Values WBC 13.4 k/uL (3.8-10.6) H 09/21/19 08:37 RBC 4.36 m/uL (4.30-5.90) 09/21/19 08:37 Hgb 13.5 gm/dL (13.0-17.5) 09/21/19 08:37 Hct 41.7 % (39.0-53.0) 09/21/19 08:37 MCV 95.7 fL (80.0-100.0) 09/21/19 08:37 MCH 31.0 pg (25.0-35.0) 09/21/19 08:37 MCHC 32.4 g/dL (31.0-37.0) 09/21/19 08:37 RDW 13.0 % (11.5-15.5) 09/21/19 08:37 Plt Count 239 k/uL (150-450) 09/21/19 08:37 Neutrophils % 78 % 09/21/19 08:37 Lymphocytes % 12 % 09/21/19 08:37 Monocytes % 6 % 09/21/19 08:37 Eosinophils % 2 % 09/21/19 08:37 Basophils % 0 % 09/21/19 08:37 Neutrophils # 10.5 k/uL (1.3-7.7) H 09/21/19 08:37 Lymphocytes # 1.7 k/uL (1.0-4.8) 09/21/19 08:37 Monocytes # 0.8 k/uL (0-1.0) 09/21/19 08:37 Eosinophils # 0.3 k/uL (0-0.7) 09/21/19 08:37 Basophils # 0.0 k/uL (0-0.2) 09/21/19 08:37 Sodium 140 mmol/L (137-145) 09/21/19 08:37 Potassium 3.9 mmol/L (3.5-5.1) 09/21/19 08:37 Chloride 108 mmol/L (98-107) H 09/21/19 08:37 Carbon Dioxide 24 mmol/L (22-30) 09/21/19 08:37 Anion Gap 8 mmol/L 09/21/19 08:37 BUN 19 mg/dL (9-20) 09/21/19 08:37 Creatinine 0.88 mg/dL (0.66-1.25) 09/21/19 08:37 Est GFR (CKD-EPI)AfAm >90 (>60 ml/min/1.73 sqM) 09/21/19 08:37 Est GFR (CKD-EPI)NonAf >90 (>60 ml/min/1.73 sqM) 09/21/19 08:37 Glucose 123 mg/dL (74-99) H 09/21/19 08:37 Calcium 9.0 mg/dL (8.4-10.2) 09/21/19 08:37 Total Bilirubin 0.3 mg/dL (0.2-1.3) 09/21/19 08:37 AST 39 U/L (17-59) 09/21/19 08:37 ALT 28 U/L (4-49) 09/21/19 08:37 Alkaline Phosphatase 48 U/L (38-126) 09/21/19 08:37 Total Protein 6.7 g/dL (6.3-8.2) 09/21/19 08:37 Albumin 3.7 g/dL (3.5-5.0) 09/21/19 08:37 Triglycerides 309 mg/dL (<150) H 09/21/19 08:37 Cholesterol 135 mg/dL (<200) 09/21/19 08:37 LDL Cholesterol, Calc 40 mg/dL (0-99) 09/21/19 08:37 HDL Cholesterol 33 mg/dL (40-60) L 09/21/19 08:37 TSH 1.440 mIU/L (0.465-4.680) 09/21/19 08:37 09/21/19 12:18 IDENTIFYING DATA: Patient is a 54-year-old male who currently lives with a roommate in a house has no kids is and currently on Social Security. HPI: Patient presented to the hospital yesterday for evaluation brought in by the police on petition. Patient was seen in the ER twice this past month for depression and anxiety symptoms and was discharged from the ER. He apparently made suicidal statements and was combative with police and claimed to have punched his windshield in his car according to ER report. Patient was agreeable to be seen by tech writer today and stated that he has a "a lot going on in my life". He perseverated on having a "bad childhood" and also spoke about his mother dying last year in August. He also states that his father was found in the [place] which has been distressing him. He states that he is "depressed always" and admits to anxiety. He states that he is frustrated and overwhelmed with his roommate as he feels he is doing too much around the house. Patient was perseverating on bedbugs in the home and pointed to his skin stating that he is gotten bit. He claims that he has poor sleep fair appetite. He states that he was so frustrated yesterday that he punched his windshield in his car however denies any irritability. Patient denies any suicidal or homicidal ideations intent or plan. At this time patient denies any auditory or visual hallucinations. Patient denies any flight of ideas racing thoughts and increased in goal directed behavior. Patient admits to using cigarettes daily, alcohol and marijuana occasionally. PAST PSYCHIATRIC HISTORY: Patient states that he has a history of depression and anxiety. Issues and states that he is previously on Zoloft and Xanax which she does not want to take any longer. Patient denies any previous psychiatric hospitalizations. Patient states that he is to follow-up with Dr. Hawthorne several years ago however has not an had any outpatient follow-up since then. Patient denies any history of suicide attempts in the past. PMH: Asthma, COPD, hyperlipidemia, hypertension ALLERGIES: as per EMR CHEMICAL DEPENDENCY HISTORY: as per HPI FAMILY PSYCHIATRIC/SUBSTANCE USE HISTORY: Claims that his mother and father both abused alcohol. SOCIAL HISTORY: Patient was born and raised in [place] and was raised in [facility]. He states that he completed up to the 10th grade of school and dropped out. He currently lives with a roommate in a house collects Social Security and does not have any kids and is currently. He admitted to being in residential several years back for public intoxication. MENTAL STATUS EXAM: General Appearance: Patient appears to be overweight, stated age is alert, directable, and attempts to cooperate. Patient appears to have poor hygiene and grooming. Behavior: Patient is seated without any agitated behavior. Speech: Patient's speech is fluent and nonpressured. Soft tone. Mood/Affect: Patient reports their mood is depressed and anxious, affect is congruent and constricted. Suicidality/Homicidality: Patient denies having any homicidal ideation intent or plan. Denies any suicidal ideations intent or plan Perceptions: Patient denies any visual hallucinations and denies any auditory hallucinations Though content/process: There is no evidence of any delusional thought content and thought process is linear and goal-directed. Perseverate on his stressors and bedbugs. Memory and concentration: AOX3, grossly intact for the purposes of this session. Can spell "WORLD" backwards Judgment and insight: poor STRENGTHS/WEAKNESSES: strength is that patient is resilient. Weakness is that patient has poor judgment and is impulsive INTELLECT: average IMPRESSIONS: Major depressive disorder, without psychotic features Anxiety disorder unspecified Cannabis use disorder, mild History of alcohol abuse Nicotine dependence PLAN: -Patient is admitted under voluntary status to MHU for stabilization of psychiatric symptoms and safety. Patient signed adult voluntary form and medication consent and is placed in patient's chart. -Medications : Will start patient on Lexapro 10 mg daily for mood/anxiety, trazodone 50 mg daily at bedtime for insomnia/mood. -Ativan and Geodon PRN for agitation/aggression -Patient was counselled on substance abuse and desired to cut back on use -Patient was informed of the risks, benefits and side effects of the medication and patient verbally consented to taking the medications. Patient signed med consent form and was placed in chart. -Internal Medicine consult to perform medical evaluation and physical. -NRT - nicotine patch -SW on board for discharge planning. Encourage patient to participate in groups to work on coping skills. 09/21/19 12:50
--- NOTE | 2019-09-21 18:05 | P.HPIM ---
History of Present Illness H&P Date: 09/21/19 Chief Complaint: Severe depression Denny Marin, is a 54-year-old male who was petitioned to be evaluated by psychiatry as he was having severe depression and voicing suicidal ideation, patient was brought in by police to emergency room he was evaluated in emergency room and admitted to the psychiatry unit. Medical consultation was requested for management while hospitalized. Patient has a known history of hypertension, hyperlipidemia, asthma, COPD, he denies any history of coronary artery disease or congestive heart failure he denies any history of kidney or liver disease. On review of system patient is alert and oriented 3, he continued to voice that he is severely depressed and he cannot keep going on, he is complaining of left flunk pain, otherwise he denies any physical complaints there is no fever or chills no headache or dizziness no chest pain no shortness of breath no cough no nausea or vomiting no abdominal pain no diarrhea no burning with urination no frequency or urgency and no hematuria Past Medical History Past Medical History: Asthma, COPD, Hyperlipidemia, Hypertension History of Any Multi-Drug Resistant Organisms: None Reported Past Surgical History: No Surgical Hx Reported Additional Past Surgical History / Comment(s): L arm Past Psychological History: Anxiety, Depression Smoking Status: Current every day smoker Past Alcohol Use History: Occasional Past Drug Use History: Marijuana - Past Family History Father Family Medical History: Asthma Medications and Allergies Home Medications Medication Instructions Recorded Confirmed Type Albuterol Nebulized [Ventolin 2.5 mg INHALATION RT-Q4H PRN 12/17/15 09/20/19 H istory Nebulized] Cetirizine HCl 10 mg PO DAILY 12/17/15 09/20/19 History Pravastatin Sodium [Pravachol] 40 mg PO DAILY 12/17/15 09/20/19 History ALPRAZolam [Xanax] 0.5 mg PO BID PRN 09/19/19 09/20/19 History Fenofibrate Nanocrystallized 145 mg PO DAILY 09/19/19 09/20/19 History [Fenofibrate] Fluticasone/Salmeterol 1 puff INHALATION RT-BID 09/19/19 09/20/19 History [Fluticasone-Salmeterol 232-14] amLODIPine [Norvasc] 10 mg PO DAILY 09/19/19 09/20/19 History Albuterol Inhaler [Ventolin Hfa 1 puff INHALATION RT-QID PRN 09/20/19 09/20/19 History Inhaler] Escitalopram [Lexapro] 10 mg PO DAILY 09/20/19 09/20/19 History Allergies Allergy/AdvReac Type Severity Reaction Status Date / Time cephalexin monohydrate Allergy Nausea & Verified 09/20/19 17:07 [From Keflex] Vomiting ergocalciferol (vitamin D2) Allergy WEAKNESS Verified 09/20/19 17:07 [From Vitamin D2] Physical Exam Vitals: Vital Signs Temp Pulse Pulse Resp BP Pulse Ox 09/21/19 12:00 99.0 F 09/21/19 09:01 87 20 138/61 09/21/19 06:14 98.1 F 70 16 119/53 95 09/20/19 23:44 84 09/20/19 23:33 88 09/20/19 21:42 102/64 09/20/19 20:55 97.1 F L 80 16 97/52 94 L In general patient is alert and oriented 3 HEENT head normocephalic and atraumatic Neck is supple no JVD no goiter no lymphadenopathy Chest exam reveals a few scattered rhonchi no wheezing Cardiac exam reveals regular heart sounds S1 and S2 no gallops no murmurs Abdomen is soft nontender no organomegaly with normal bowel sounds Extremity exam reveals no edema no cyanosis or clubbing Neurological examination reveals no gross focal deficits Results CBC & Chem 7: 09/21/19 08:37 09/21/19 08:37 Labs: Abnormal Lab Results - Last 24 Hours (Table) 09/21/19 09/21/19 Range/Units 08:37 08:37 WBC 13.4 H (3.8-10.6) k/uL Neutrophils # 10.5 H (1.3-7.7) k/uL Chloride 108 H (98-107) mmol/L Glucose 123 H (74-99) mg/dL Triglycerides 309 H (<150) mg/dL HDL Cholesterol 33 L (40-60) mg/dL Assessment and Plan Plan: 1. Major depression with suicidal ideation 2. Anxiety disorder 3. Underlying history of hypertension 4. Underlying history of hyperlipidemia 5. Tobacco abuse 6. Underlying history of asthma and COPD 7. Left sided flank pain At this time home medications were reviewed and reordered Will check urine analysis and check kidney ultrasound Will follow during this admission for medical management
[2019-09-21 18:11] LABS: Hemoglobin A1C 5.2 % (4.0-6.0)
[2019-09-21] MEDS ORDERED: traZODone HCL 50 MG TAB PO SCH (21:00)
[2019-09-21 22:59] LABS: Amphetamine Screen,Urine Not Detected (NotDetected); Barbiturate Screen,Urine Not Detected (NotDetected); Benzodiazepines Screen,Urine Not Detected (NotDetected); Cocaine Screen,Urine Not Detected (NotDetected); Methadone Screen, Urine Not Detected (NotDetected); Opiate Screen,Urine Not Detected (NotDetected); Oxycodone Screen, Urine Not Detected (NotDetected); Phencyclidine Screen,Urine Not Detected (NotDetected); Tricyclic Antidepressant,Urine Not Detected (NotDetected); Urn Cannabinoid Scrn Not Detected (NotDetected)
[2019-09-22] MEDS: NICOTINE 14MG/24HR PATCH TRANSDERM SCH (08:47)
[2019-09-22] MEDS: LORATADINE 10 MG TAB PO SCH (08:48)
[2019-09-22] MEDS: FENOFIBRATE 160 MG TAB PO SCH (08:48)
[2019-09-22] MEDS: PRAVASTATIN SODIUM 40 MG TAB PO SCH (08:48)
[2019-09-22] MEDS: SYMBICORT 160-4.5 MCG INHALER (MHU) INHALATION SCH ×2 (08:48→19:22)
[2019-09-22] MEDS: ESCITALOPRAM 10 MG TAB PO SCH (08:48)
[2019-09-22] MEDS: amLODIPine 10 MG TAB PO SCH (08:48)
[2019-09-22] MEDS: LORazepam 1 MG TAB PO PRN (11:35)
[2019-09-22] MEDS ORDERED: ONDANSETRON 4 MG TAB PO PRN (11:52)
[2019-09-22] MEDS ORDERED: hydrOXYzine PAMOATE 25 MG CAP PO PRN (11:57)
--- NOTE | 2019-09-22 12:09 | P.PN ---
Progress Note - Text Progress Note Date: 09/22/19 Interval History: Patient was seen [wandering the hallways] and was directable and agreeable to speak with content writer in the office. Patient appeared to be anxious today while sitting with content writer. Patient was vague about his symptoms and states that he is not able to tolerate food and claims that he was gagging last night. He claims that he feels overwhelmed and depressed. He was mildly tearful after speaking about his anxiety however was agreeable to take Zofran and Vistaril when necessary. He claims that he had poor sleep last night. He states that he went to 1 group yesterday and has been pacing the hallways. He continues to have poor insight and judgment. At this time patient denies any suicidal or homical ideations, intent or plan. Patient denies any auditory, visual hallucinations and denies any paranoia or delusions. Mental Status Exam: General Appearance: Patient appears to be overweight, stated age is alert, directable, and appears to be anxious. Patient appears to have poor hygiene and grooming. Behavior: Patient is seated without any agitated behavior. Appears to be anxious. Speech: Patient's speech is fluent and nonpressured. Mood/Affect: Patient reports their mood is depressed and anxious, affect is congruent Suicidality/Homicidality: Patient denies having any homicidal ideation intent or plan. Denies any suicidal ideations intent or plan Perceptions: Patient denies any visual hallucinations and denies any auditory hallucinations Though content/process: There is no evidence of any delusional thought content and thought process is linear and goal-directed. Perseverate on his anxiety today. Memory and concentration: AOX3, grossly intact for the purposes of this session. Judgment and insight: poor Assessment Major depressive disorder, without psychotic features Anxiety disorder unspecified Cannabis use disorder, mild History of alcohol abuse Nicotine dependence Plan: -Patient continues to meet criteria for inpatient psychiatric admission for symptom stabilization and safety. Patient has signed [adult voluntary form and] medication consent and was placed in patient's chart. -Medications: Continue with Lexapro 10 mg daily for mood sessions anxiety, consider titrating up tomorrow. Increased trazodone to 100 mg nightly for insomnia/mood. Added Vistaril 25 mg every 6 hours when necessary for anxiety. Added Zofran when necessary for nausea. -When necessary Ativan and Geodon for agitation/aggression. -NRT - [nicotine patch] -SW on board for discharge planning. Encouraged the patient to participate in milieu. [] PLAN: -Patient is admitted under voluntary status to MHU for stabilization of psychiatric symptoms and safety. Patient signed adult voluntary form and is placed in patient's chart. Patient refused to sign for medication consent -Medications : Will start patient on Lexapro 10 mg daily for mood/anxiety, trazodone 50 mg daily at bedtime for insomnia/mood. -Ativan and Geodon PRN for agitation/aggression -Patient was counselled on substance abuse and desired to cut back on use -Patient was informed of the risks, benefits and side effects of the medication and patient verbally consented to taking the medications. Patient signed med consent form and was placed in chart. -Internal Medicine consult to perform medical evaluation and physical. -NRT - nicotine patch -SW on board for discharge planning. Encourage patient to participate in groups to work on coping skills.
--- NOTE | 2019-09-22 12:36 | US ---
EXAMINATION TYPE: US kidneys/renal and bladder DATE OF EXAM: 09/22/2019 COMPARISON: NONE CLINICAL HISTORY: lft flank pain. Pt states flank pain EXAM MEASUREMENTS: Right Kidney: 11.9 x 6.9 x 5.9 cm Left Kidney: 12.0 x 6.1 x 5.3 cm Right Kidney: No evidence of hydro, possible renal calculi scattered throughout, largest 8mm Left Kidney: No evidence of hydro, probable calculi mid= 9mm Bladder: wnl Bilateral Jets seen: No IMPRESSION: Couple of nonobstructing renal calculi present bilaterally.
[2019-09-22] MEDS: ALBUTEROL NEBULIZED 2.5 MG/3 ML INHALATION PRN (17:28)
[2019-09-22] MEDS: traZODone HCL 100 MG TAB PO SCH (19:20)
[2019-09-23] MEDS: ALBUTEROL NEBULIZED 2.5 MG/3 ML INHALATION PRN (03:17)
[2019-09-23 08:30] LABS: Basophils % (A) 0 %; Eosinophils # (A) 0.2 k/uL (0-0.7); Eosinophils % (A) 1 %; HCT 43.2 % (39.0-53.0); HGB 14.1 gm/dL (13.0-17.5); Lymphocytes # (A) 1.6 k/uL (1.0-4.8); Lymphocytes % (A) 9 %; MCH 31.1 pg (25.0-35.0); MCHC 32.7 g/dL (31.0-37.0); Mean Platelet Volume 8.1; Monocytes # (A) 0.9 k/uL (0-1.0); Monocytes % (A) 5 %; Neutrophils # (A) 14.8 k/uL (1.3-7.7); Neutrophils % (A) 83 %; Platelet Count 283 k/uL (150-450); RBC 4.55 m/uL (4.30-5.90); RDW 12.9 % (11.5-15.5); WBC 17.8 k/uL (3.8-10.6)
[2019-09-23 08:46] LABS: ALT 35 U/L (4-49); AST 41 U/L (17-59); African American GFR (CKD) >90 (>60 ml/min/1.73 sqM); Albumin 4.3 g/dL (3.5-5.0); Alkaline Phosphatase 47 U/L (38-126); Anion Gap 10 mmol/L; Blood Urea Nitrogen 12 mg/dL (9-20); Calcium 9.3 mg/dL (8.4-10.2); Carbon Dioxide 24 mmol/L (22-30); Chloride 103 mmol/L (98-107); Glucose 117 mg/dL (74-99); Non-African American GFR(CKD) >90 (>60 ml/min/1.73 sqM); Sodium 137 mmol/L (137-145); Total Bilirubin 0.9 mg/dL (0.2-1.3); Total Protein 7.4 g/dL (6.3-8.2)
[2019-09-23] MEDS: LORazepam 1 MG TAB PO PRN (09:33)
[2019-09-23] MEDS: amLODIPine 10 MG TAB PO SCH (09:33)
[2019-09-23] MEDS: ESCITALOPRAM 10 MG TAB PO SCH (09:33)
[2019-09-23] MEDS: FENOFIBRATE 160 MG TAB PO SCH (09:34)
[2019-09-23] MEDS: NICOTINE 14MG/24HR PATCH TRANSDERM SCH (09:34)
[2019-09-23] MEDS: PRAVASTATIN SODIUM 40 MG TAB PO SCH (09:34)
[2019-09-23] MEDS: SYMBICORT 160-4.5 MCG INHALER (MHU) INHALATION SCH (09:34)
[2019-09-23] MEDS: LORATADINE 10 MG TAB PO SCH (09:34)
[2019-09-23 12:25] LABS: Appearance,Urine Clear (Clear); Bilirubin,Urine Negative (Negative); Blood,Urine Negative (Negative); Color,Urine Colorless; Glucose,Urine (UA) Negative (Negative); Ketones,Urine Negative (Negative); Leukocyte Esterase,Urine Negative (Negative); Nitrite,Urine Negative (Negative); PH, Urine 6.5 (5.0-8.0); Protein,Urine Negative (Negative); Specific Gravity,Urine 1.002 (1.001-1.035); Urobilinogen,Urine <2.0 mg/dL (<2.0)
--- NOTE | 2019-09-23 12:45 | P.PN ---
Subjective Progress Note Date: 09/23/19 Patient was seen in the chart was reviewed. The case was discussed with the staff during the team meeting. The patient is a poor historian but reports feeling a little better. The patient tends to minimize his symptoms. The patient and says that he should not be in the hospital and needs to go be disc harged in take care of his issues. He reports improved sleep last night and denies any crying spells at this time. The patient denies any auditory or visual hallucinations at this time. Patient was vague about his symptoms and states that he is not able to tolerate food and reports poor appetite. He appears to be very preoccupied with the events leading him to be admitted on the mental health unit. He claims that he feels overwhelmed and depressed. He states improved compliance with the milieu therapy. He continues to have poor insight and judgment. At this time patient denies any suicidal or homical ideations, intent or plan. Patient denies any auditory, visual hallucinations and denies any paranoia or delusions. Objective - Vital Signs Vital signs: Vital Signs Temp 98.6 F 09/23/19 05:07 Pulse 88 09/23/19 09:38 Resp 20 09/23/19 05:07 BP 115/55 09/23/19 09:38 Pulse Ox 96 09/22/19 06:35 - Exam Mental Status Exam: General Appearance: Patient appears to be overweight, stated age is alert, directable, and appears to be anxious. Patient appears to have limited hygiene and grooming. Behavior: Patient is seated without any agitated behavior. Appears to be anxious. Speech: Patient's speech is rapid, fluent and nonpressured. Mood/Affect: Patient reports his mood is depressed and anxious, affect is congruent Suicidality/Homicidality: Patient denies having any homicidal ideation intent or plan. Denies any suicidal ideations intent or plan Perceptions: Patient denies any visual hallucinations and denies any auditory hallucinations Though content/process: There is no evidence of any delusional thought content and thought process is very circumstantial and difficult to redirect. Memory and concentration: AOX3, grossly intact for the purposes of this session. Judgment and insight: poor - Labs CBC & Chem 7: 09/23/19 07:59 09/23/19 07:59 Labs: Abnormal Lab Results - Last 24 Hours (Table) 09/23/19 09/23/19 Range/Units 07:59 07:59 WBC 17.8 H (3.8-10.6) k/uL Neutrophils # 14.8 H (1.3-7.7) k/uL Glucose 117 H (74-99) mg/dL Assessment and Plan Assessment: Assessment Major depressive disorder, without psychotic features Anxiety disorder unspecified Cannabis use disorder, mild History of alcohol abuse Nicotine dependence Plan: Plan: -Patient continues to meet criteria for inpatient psychiatric admission for symptom stabilization and safety. Patient has signed adult voluntary form and medication consent and was placed in patient's chart. Encourage compliance with the treatment. One-to-one support and reassurance was provided. -Medications: Continue with Lexapro 10 mg daily for mood sessions anxiety. Continue trazodone to 100 mg nightly for insomnia/mood. Continue Vistaril 25 mg every 6 hours when necessary for anxiety. -When necessary Ativan and Geodon for agitation/aggression. -NRT - nicotine patch -SW on board for discharge planning. The patient is agreeable to sign the consent for his brother to be contacted regarding discharge planning.
--- NOTE | 2019-09-23 17:50 | XR ---
EXAMINATION TYPE: XR chest 2V DATE OF EXAM: 09/23/2019 COMPARISON: 09/03/2019 HISTORY: Chest pain TECHNIQUE: FINDINGS: Heart and mediastinum are normal. Lungs are clear of consolidation. There are no hilar mass es. There is minimal subsegmental atelectasis lateral right lung base. There are no hilar masses. The re is slight increased pulmonary interstitial density. IMPRESSION: Increased pulmonary interstitial density in the lungs is a change compared to old exam an d is nonspecific.No obvious heart failure.
[2019-09-23] MEDS: traZODone HCL 100 MG TAB PO SCH (22:24)
[2019-09-24 07:22] LABS: Basophils % (A) 0 %; Eosinophils # (A) 0.3 k/uL (0-0.7); Eosinophils % (A) 3 %; HCT 41.6 % (39.0-53.0); HGB 13.8 gm/dL (13.0-17.5); Lymphocytes # (A) 1.3 k/uL (1.0-4.8); Lymphocytes % (A) 14 %; MCH 31.2 pg (25.0-35.0); MCHC 33.1 g/dL (31.0-37.0); MCV 94.1 fL (80.0-100.0); Monocytes # (A) 0.7 k/uL (0-1.0); Monocytes % (A) 7 %; Neutrophils # (A) 6.9 k/uL (1.3-7.7); Neutrophils % (A) 73 %; Platelet Count 269 k/uL (150-450); RBC 4.42 m/uL (4.30-5.90); RDW 12.9 % (11.5-15.5); WBC 9.4 k/uL (3.8-10.6)
[2019-09-24] MEDS: LORazepam 1 MG TAB PO PRN (07:27)
[2019-09-24] MEDS: FENOFIBRATE 160 MG TAB PO SCH (10:37)
[2019-09-24] MEDS: PRAVASTATIN SODIUM 40 MG TAB PO SCH (10:37)
[2019-09-24] MEDS: NICOTINE 14MG/24HR PATCH TRANSDERM SCH (10:39)
[2019-09-24] MEDS: ESCITALOPRAM 10 MG TAB PO SCH (10:39)
[2019-09-24] MEDS: LORATADINE 10 MG TAB PO SCH (10:39)
[2019-09-24] MEDS: amLODIPine 10 MG TAB PO SCH (10:39)
[2019-09-24] MEDS: SYMBICORT 160-4.5 MCG INHALER (MHU) INHALATION SCH ×4 (10:42→21:35)
[2019-09-24] MEDS: ALBUTEROL NEBULIZED 2.5 MG/3 ML INHALATION PRN (11:27)
--- NOTE | 2019-09-24 12:00 | P.PN ---
Progress Note - Text Interval history: The patient is found in his room. He was placed on droplet precautions. I was informed that his Covid testing results were not yet available. His x-ray results was reviewed and there was an abnormality present. He states that he feels he is being treated differently now he states that he was walking around and going to groups just yesterday and now he is isolated to his room he describes is as a persecutory action. The patient minimizes his presenting symptoms. He reports no thoughts of harming himself or harming others is endorsing no hallucinations. He indicates appetite is stable. Mental status exam: The patient is an overweight male appearing his stated age he is dressed in hospital gowns he is wearing a mask. He seated on his bed as directed. He demonstrates some tangential thinking and loose associations, he minimizes any presenting symptoms. He reports no auditory or visual hallucinations or any specific delusions however he still feels persecuted and having to remain in his room due to the droplet precautions. I did provide a medical explanation for this precaution that he did not seem to accept that area he is demonstrating no verbal or physical aggressiveness he is demonstrating no involuntary repetitive movements. He is oriented to person place correctly but daily the week is Thursday rather than Thursday. He reports having no suicidal or homicidal ideation intent or plan. Plan: The patient is currently undergone for precautions we are awaiting his Covid testing results. He does demonstrate some thought disorganization and lack of insight into presenting symptoms. Continue medications as written. Vital signs reviewed.
[2019-09-24] MEDS: ALBUTEROL INHALER 60 PUFF/8 GM INHALER (MHU) INHALATION PRN (17:20)
[2019-09-24] MEDS: traZODone HCL 100 MG TAB PO SCH (22:01)
[2019-09-24 22:17] LABS: Glucose,Whole Blood 123 mg/dL (75-99)
[2019-09-25] MEDS: amLODIPine 10 MG TAB PO SCH (07:08)
[2019-09-25] MEDS: LORATADINE 10 MG TAB PO SCH (07:08)
[2019-09-25] MEDS: ESCITALOPRAM 10 MG TAB PO SCH (07:08)
[2019-09-25] MEDS: PRAVASTATIN SODIUM 40 MG TAB PO SCH (07:08)
[2019-09-25] MEDS: FENOFIBRATE 160 MG TAB PO SCH (07:08)
[2019-09-25] MEDS: SYMBICORT 160-4.5 MCG INHALER (MHU) INHALATION SCH ×2 (07:17→20:59)
[2019-09-25] MEDS: NICOTINE 14MG/24HR PATCH TRANSDERM SCH (09:55)
--- NOTE | 2019-09-25 12:10 | P.PN ---
Progress Note - Text Interval history: The patient is found in the hallway he follows me to an interview room. He indicates that he doesn't feel good. He reports episodes of confusion he states he has suicidal thoughts. He thought this morning of just not eating to starve himself to . He reports that he did meet breakfast but will attempt to eat lunch. 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 His primary care doctor was contacted some lab work was ordered. Lab work is essentially normal at this time. The patient describes a long history of depression and anxiety and he indicates PTSD. Mental status exam: The patient is an obese male appearing his stated age she is pleasant cooperative and easily directed. He is carrying a cup of water. He is dressed in his own clothing. Hygiene grooming fair. Eye contact is appropriate speech is fluent spontaneous nonpressured. He is verbose. He describes a depressed and anxious mood he describes having hopeless thoughts. He feels that he is confused and has problems thinking. He is oriented to person place and date. He appears to be attending to our conversation well. This is improved from our conversation yesterday. Insight and judgment limited. He demonstrates no verbal or physical aggressiveness he demonstrates no involuntary repetitive movements. He reports no thoughts of harming anyone else. Plan: The patient will continue on his current psychotropic medications. We will monitor him for safety. Vital signs reviewed. He requires continued psychiatric hospitalization.
[2019-09-25] MEDS: traZODone HCL 100 MG TAB PO SCH (21:00)
[2019-09-26] MEDS ORDERED: ESCITALOPRAM 20 MG TAB PO STA (09:55)
[2019-09-26] MEDS: ESCITALOPRAM 10 MG TAB PO SCH (10:17)
[2019-09-26] MEDS: ALBUTEROL INHALER 60 PUFF/8 GM INHALER (MHU) INHALATION PRN (10:19)
[2019-09-26] MEDS: SYMBICORT 160-4.5 MCG INHALER (MHU) INHALATION SCH ×2 (10:19→20:43)
[2019-09-26] MEDS: FENOFIBRATE 160 MG TAB PO SCH (10:20)
[2019-09-26] MEDS: NICOTINE 14MG/24HR PATCH TRANSDERM SCH (10:20)
[2019-09-26] MEDS: amLODIPine 10 MG TAB PO SCH (10:20)
[2019-09-26] MEDS: PRAVASTATIN SODIUM 40 MG TAB PO SCH (10:20)
[2019-09-26] MEDS: LORATADINE 10 MG TAB PO SCH (10:20)
--- NOTE | 2019-09-26 10:42 | P.PN ---
Progress Note - Text Progress Note Date: 09/26/19 Interval History: Patient was seen lying down in his bed this morning and was directable and agr eeable to speak with travel writer in the office. Patient appeared to be less anxious today and calm her during interview. Patient continues to be vague about his symptoms and states that he is feeling depressed. He claims that he feels he has no motivation" don't want to do anything". Patient admits to feeling overwhelmed and hopeless. He states that he has lost his house and catastrophizes about his finances and social situation. Claims that his roommate has moved out. He claims that he had poor sleep last night and only slept 3 hours. He states that he has not been going to groups however was encouraged to do so. He continues to have poor insight and judgment. Patient admits to excessive guilt and endorsing delusions of worthlessness. Patient has been taking his medications. At this time patient denies any suicidal or homical ideations, intent or plan. Patient denies any auditory, visual hallucinations and denies any paranoia or delusions. He admits to poor appetite. Mental Status Exam: General Appearance: Patient appears to be overweight, stated age is alert, directable, uncooperative. Patient appears to have poor hygiene and grooming. Behavior: Patient is seated without any agitated behavior. Appears to be depressed. Speech: Patient's speech is fluent and nonpressured. Mood/Affect: Patient reports their mood is depressed and overwhelmed, affect is congruent Suicidality/Homicidality: Patient denies having any homicidal ideation intent or plan. Denies any suicidal ideations intent or plan Perceptions: Patient denies any visual hallucinations and denies any auditory hallucinations Though content/process: There is no evidence of any delusional thought content and thought process is linear and goal-directed. Perseverate on his symptoms. Catastrophizes on feeling overwhelmed Memory and concentration: AOX3, grossly intact for the purposes of this session. Judgment and insight: poor Assessment Major depressive disorder, with psychotic features Anxiety disorder unspecified Cannabis use disorder, mild History of alcohol abuse Nicotine dependence Plan: -Patient continues to meet criteria for inpatient psychiatric admission for symptom stabilization and safety. Patient has signed adult voluntary form and medication consent and was placed in patient's chart. -Medications: Increased Lexapro 20 mg daily for mood sessions anxiety. Discontinue trazodone and replaced with Remeron 15 mg daily at bedtime to increase appetite and help with mood/insomnia. Continue with Vistaril 25 mg every 6 hours when necessary for anxiety. Continue with Zofran when necessary for nausea. -When necessary Ativan and Geodon for agitation/aggression. -NRT - nicotine patch -SW on board for discharge planning. Encouraged the patient to participate in milieu.
[2019-09-26] MEDS ORDERED: MIRTAZAPINE 15 MG TAB PO SCH (21:00)
[2019-09-27] MEDS: SYMBICORT 160-4.5 MCG INHALER (MHU) INHALATION SCH ×2 (09:00→21:23)
[2019-09-27] MEDS: ALBUTEROL INHALER 60 PUFF/8 GM INHALER (MHU) INHALATION PRN (09:00)
[2019-09-27] MEDS: NICOTINE 14MG/24HR PATCH TRANSDERM SCH (09:01)
[2019-09-27] MEDS: amLODIPine 10 MG TAB PO SCH (09:01)
[2019-09-27] MEDS: FENOFIBRATE 160 MG TAB PO SCH (09:01)
[2019-09-27] MEDS: LORATADINE 10 MG TAB PO SCH (09:01)
[2019-09-27] MEDS: PRAVASTATIN SODIUM 40 MG TAB PO SCH (09:01)
[2019-09-27] MEDS: ESCITALOPRAM 20 MG TAB PO SCH (09:01)
[2019-09-27 09:12] LABS: Basophils % (A) 0 %; Eosinophils # (A) 0.2 k/uL (0-0.7); Eosinophils % (A) 2 %; HCT 41.2 % (39.0-53.0); HGB 13.5 gm/dL (13.0-17.5); Lymphocytes # (A) 1.4 k/uL (1.0-4.8); Lymphocytes % (A) 12 %; MCH 30.9 pg (25.0-35.0); MCHC 32.7 g/dL (31.0-37.0); MCV 94.4 fL (80.0-100.0); Mean Platelet Volume 7.7; Monocytes # (A) 0.8 k/uL (0-1.0); Monocytes % (A) 7 %; Neutrophils # (A) 8.7 k/uL (1.3-7.7); Neutrophils % (A) 78 %; Platelet Count 302 k/uL (150-450); RBC 4.37 m/uL (4.30-5.90); RDW 12.6 % (11.5-15.5); WBC 11.2 k/uL (3.8-10.6)
[2019-09-27 09:22] LABS: ALT 35 U/L (4-49); AST 32 U/L (17-59); African American GFR (CKD) >90 (>60 ml/min/1.73 sqM); Albumin 3.8 g/dL (3.5-5.0); Alkaline Phosphatase 41 U/L (38-126); Anion Gap 6 mmol/L; Blood Urea Nitrogen 13 mg/dL (9-20); Calcium 9.1 mg/dL (8.4-10.2); Carbon Dioxide 28 mmol/L (22-30); Chloride 104 mmol/L (98-107); Glucose 120 mg/dL (74-99); Non-African American GFR(CKD) >90 (>60 ml/min/1.73 sqM); Potassium 4.4 mmol/L (3.5-5.1); Sodium 138 mmol/L (137-145); Total Bilirubin 0.4 mg/dL (0.2-1.3); Total Protein 6.8 g/dL (6.3-8.2)
--- NOTE | 2019-09-27 11:50 | P.PN ---
Progress Note - Text Progress Note Date: 09/27/19 Interval History: Patient was seen lying down in his bed this morning and was directable and agr eeable to speak with bid writer in the office. Patient appeared to be less anxious today and calmer her during interview. He continues to endorse hopelessness and feeling depressed and continues to be focused on not having an appetite for food. He states that he did not eat breakfast this morning. He was spotted drinking water earlier. He claims that he feels tired however state that he was not able to sleep last night. Patient continues to be vague about his symptoms and states that he is feeling depressed. He claims that he feels he has no motivation" don't want to do anything". He continues to endorse delusions of hopelessness and catastrophizing his social and financial situation. Claims that his roommate has moved out. He continues to have poor insight and judgment. Patient has been taking his medications. At this time patient denies any suicidal or homical ideations, intent or plan. Patient denies any auditory, visual hallucinations and denies any paranoia or delusions. He admits to poor appetite. Mental Status Exam: General Appearance: Patient appears to be overweight, stated age is alert, directable, uncooperative. Patient appears to have poor hygiene and grooming. Behavior: Patient is seated without any agitated behavior. Appears to be depressed. Vague. Speech: Patient's speech is fluent and nonpressured. Mood/Affect: Patient reports their mood is depressed, affect is congruent Suicidality/Homicidality: Patient denies having any homicidal ideation intent or plan. Denies any suicidal ideations intent or plan Perceptions: Patient denies any visual hallucinations and denies any auditory hallucinations Though content/process: There is no evidence of any delusional thought content and thought process is linear and goal-directed. Perseverate on his symptoms. Catastrophizes on feeling overwhelmed. Vague. Memory and concentration: AOX3, grossly intact for the purposes of this session. Judgment and insight: poor Assessment Major depressive disorder, with psychotic features Anxiety disorder unspecified Cannabis use disorder, mild History of alcohol abuse Nicotine dependence Plan: -Patient continues to meet criteria for inpatient psychiatric admission for symptom stabilization and safety. Patient has signed adult voluntary form and medication consent and was placed in patient's chart. -Medications: Continue with Lexapro 20 mg daily for mood sessions anxiety. Increased Remeron 30 mg daily at bedtime for appetite/mood/insomnia. Continue with Vistaril 25 mg every 6 hours when necessary for anxiety. Continue with Zofran when necessary for nausea. Added Abilify 2.5 mg daily for psychosis/mood adjunct. -When necessary Ativan and Geodon for agitation/aggression. -NRT - nicotine patch -SW on board for discharge planning. Encouraged the patient to participate in milieu. Likely discharge in 2-3 days.
[2019-09-27] MEDS: ARIPiprazole 5 MG TAB PO SCH (13:41)
[2019-09-27 13:50] VITALS: BMI 39.4
[2019-09-27] MEDS: MIRTAZAPINE 15 MG TAB PO SCH (21:23)
[2019-09-28] MEDS: NICOTINE 14MG/24HR PATCH TRANSDERM SCH (09:14)
[2019-09-28] MEDS: amLODIPine 10 MG TAB PO SCH (09:15)
[2019-09-28] MEDS: PRAVASTATIN SODIUM 40 MG TAB PO SCH (09:15)
[2019-09-28] MEDS: ARIPiprazole 5 MG TAB PO SCH (09:15)
[2019-09-28] MEDS: LORATADINE 10 MG TAB PO SCH (09:15)
[2019-09-28] MEDS: FENOFIBRATE 160 MG TAB PO SCH (09:15)
[2019-09-28] MEDS: ESCITALOPRAM 20 MG TAB PO SCH (09:15)
[2019-09-28] MEDS: ALBUTEROL INHALER 60 PUFF/8 GM INHALER (MHU) INHALATION PRN (09:18)
[2019-09-28] MEDS: SYMBICORT 160-4.5 MCG INHALER (MHU) INHALATION SCH ×2 (09:18→21:10)
[2019-09-28] MEDS ORDERED: IBUPROFEN 600 MG TAB PO PRN (09:37)
--- NOTE | 2019-09-28 09:42 | P.PN ---
Progress Note - Text Progress Note Date: 09/28/19 Interval History: Patient was seen wandering the hallways this morning and was directable and ag reeable to speak with curriculum writer in the office. Patient appeared to be less anxious today and more appropriate and engaged with conversation today. Patient was less preoccupied with his depression and hopelessness today and appeared to be more future oriented. He spoke about speaking with the older adult social work specialist who is going to help him call Social Security to find out about his income. He spoke about finances and bills and also the mortgage and he has to pay. He states that he does have some money saved. He continues to state that he has poor appetite however claims that he needs more help with the menu and would prefer to eat in his room away from other people. He claims that he was able to sleep well last night. He states that he feels the Abilify is helping him significantly with his mood at this time. Patient has been taking his medications. At this time patient denies any suicidal or homical ideations, intent or plan. Patient denies any auditory, visual hallucinations and denies any paranoia or delusions. He admits to poor appetite. Mental Status Exam: General Appearance: Patient appears to be overweight, stated age is alert, directable, more cooperative today. Patient appears to have poor hygiene and grooming. Behavior: Patient is seated without any agitated behavior. Vague. Speech: Patient's speech is fluent and nonpressured. Mood/Affect: Patient reports their mood is improving mildly, affect is congruent Suicidality/Homicidality: Patient denies having any homicidal ideation intent or plan. Denies any suicidal ideations intent or plan Perceptions: Patient denies any visual hallucinations and denies any auditory hallucinations Though content/process: There is no evidence of any delusional thought content and thought process is linear and goal-directed. Vague. More future oriented today. Memory and concentration: AOX3, grossly intact for the purposes of this session. Judgment and insight: poor, improving mildly Assessment Major depressive disorder, with psychotic features Anxiety disorder unspecified Cannabis use disorder, mild History of alcohol abuse Nicotine dependence Plan: -Patient continues to meet criteria for inpatient psychiatric admission for symptom stabilization and safety. Patient has signed adult voluntary form and medication consent and was placed in patient's chart. -Medications: Continue with Lexapro 20 mg daily for mood sessions anxiety. Continue with Remeron 30 mg daily at bedtime for appetite/mood/insomnia. Continue with Vistaril 25 mg every 6 hours when necessary for anxiety. Continue with Zofran when necessary for nausea. Continue with Abilify 2.5 mg daily for psychosis/mood adjunct. -When necessary Ativan and Geodon for agitation/aggression. -NRT - nicotine patch -SW on board for discharge planning. Encouraged the patient to participate in milieu. [employer] wood [employer] factory worker to help patient with Social Security phone call and to give resources for any financial help and potential shelters in the area if patient requires this. Likely discharge back home tomorrow.
[2019-09-28] MEDS: MIRTAZAPINE 15 MG TAB PO SCH (21:10)
[2019-09-29 06:54] VITALS: TEMP 98.1
[2019-09-29] MEDS: NICOTINE 14MG/24HR PATCH TRANSDERM SCH (11:14)
[2019-09-29] MEDS: ALBUTEROL INHALER 60 PUFF/8 GM INHALER (MHU) INHALATION PRN (11:14)
[2019-09-29] MEDS: SYMBICORT 160-4.5 MCG INHALER (MHU) INHALATION SCH (11:14)
[2019-09-29] MEDS: ESCITALOPRAM 20 MG TAB PO SCH (11:15)
[2019-09-29] MEDS: ARIPiprazole 5 MG TAB PO SCH (11:15)
[2019-09-29] MEDS: amLODIPine 10 MG TAB PO SCH (11:15)
[2019-09-29] MEDS: LORATADINE 10 MG TAB PO SCH (11:16)
[2019-09-29] MEDS: PRAVASTATIN SODIUM 40 MG TAB PO SCH (11:16)
[2019-09-29] MEDS: FENOFIBRATE 160 MG TAB PO SCH (11:16)
[2019-09-29 11:20] VITALS: BP 106/70; PULSE 106; RESP 20
[2019-09-29] MEDS ORDERED: ARIPiprazole 5 MG TAB PO ONE (11:30)
--- NOTE | 2019-09-29 11:44 | P.DS ---
Providers Date of admission: 09/20/19 20:15 Expected date of discharge: 09/29/19 Attending physician: Denny Valadez MD Consults: 09/20/19 20:32 Consult Physician Routine Consulting Provider: Taina Osman Consult Reason/Comments: H&P and medical and complaint of L kidney pain x1 day` Do you want consulting provider notified?: Yes Primary care physician: Taina Osman - Discharge Diagnosis(es) (1) Anxiety disorder Current Visit: Yes Status: Acute Priority: Medium (2) Cannabis use disorder, mild, abuse Current Visit: Yes Status: Acute Priority: Medium (3) History of alcohol abuse Current Visit: Yes Status: Acute Priority: Low (4) Nicotine dependence Current Visit: Yes Status: Acute Priority: Low (5) Major depressive disorder with psychotic features Current Visit: Yes Status: Acute Priority: High Hospital Course: Admission HPI: Patient is a 54-year-old male who currently lives with a roommate in a house has no kids is and currently on Social Security. Patient presented to the hospital yesterday for evaluation brought in by the police on petition. Patient was seen in the ER twice this past month for depression and anxiety symptoms and was discharged from the ER. He apparently made suicidal statements and was combative with police and claimed to have punched his windshield in his car according to ER report. Patient was agreeable to be seen by rewriter today and stated that he has a "a lot going on in my life". He perseverated on having a "bad childhood" and also spoke about his mother dying last year in August. He also states that his father was found in the [place] which has been distressing him. He states that he is "depressed always" and admits to anxiety. He states that he is frustrated and overwhelmed with his roommate as he feels he is doing too much around the house. Patient was perseverating on bedbugs in the home and pointed to his skin stating that he is gotten bit. He claims that he has poor sleep fair appetite. He states that he was so frustrated yesterday that he punched his windshield in his car however denies any irritability. Patient denies any suicidal or homicidal ideations intent or plan. At this time patient denies any auditory or visual hallucinations. Patient denies any flight of ideas racing thoughts and increased in goal directed behavior. Patient admits to using cigarettes daily, alcohol and marijuana occasionally. Hospital course: Upon admission to the unit patient was initially depressed and anxious. Patient was however directable and agreeable to commence treatment. Patient got along well with other patients on the unit and followed unit protocol. Patient was compliant with the medications and denied any side effects throughout hospital course. Patient was started on Lexapro and titrated up to a dose of 20 mg daily for mood/anxiety, patient was also started on Remeron 30 mg nightly for appetite/mood/insomnia, patient was also started on Vistaril when necessary for anxiety and Abilify was added and titrated up to a dose of 5 mg daily for mood adjunct/psychotic features. Patient spoke of his stressors and engaged in therapy both group and individual. Patient was also seen by medical team for history and physical exam. Throughout the course of the hospitalization patient gradually improved with regards to mood, anxiety, appetite, sleep and became more future oriented with improved insight and judgment. On the day of discharge patient denied any suicidal or homicidal ideations intent or plan denied any auditory or visual hallucinations. Patient endorsed wanting to live for his home and his future. Patient denied any paranoia and did not endorse any delusions. Patient continues to deal with issues of excessive guilt and ideas of hopelessness however this has improved significantly during hospitalization. Patient does have a significant history of substance abuse and was counseled on abstaining from all substances including alcohol and marijuana. Patient was offered however declined inpatient substance-abuse rehab. Patient was also counseled on the medications and need for regular compliance and was encouraged to follow-up with their outpatient appointment for mental health and also for primary care. Prior to discharge a family meeting will be arranged by director of social media marketing to answer any questions and ensure safety upon discharge. Mental status exam: General Appearance: Patient appears to be overweight, stated age is alert, directable and attempts to be cooperative. Patient is in no acute distress and has fair hygiene and grooming Behavior: Patient is calmly seated without any agitated behavior. Speech: Patient's speech is fluent and nonpressured. Mood/Affect: Patient reports their mood is "good", affect is congruent and constricted. Suicidality/Homicidality: Patient denies having any suicidal or homicidal ideation intent or plan. Perceptions: Patient denies any auditory or visual hallucinations. Though content/process: There is no evidence of any delusional thought content and thought process is linear and goal-directed. more future oriented. [place]. Memory and concentration: AOX3, grossly intact for the purposes of this session. Can spell "WORLD" backwards correctly. Judgment and insight: Chronically poor judgment and insight however has Improved with guarded prognosis Impression: Major depressive disorder, with psychotic features Anxiety disorder unspecified History of alcohol abuse Cannabis use disorder mild Nicotine dependence Plan: -Continue with discharge today as patient has improved and stabilized psychiatrically and is not currently an imminent threat to himself and/or others. Patient does have chronically poor judgment and insight however this has improved with hospitalization however will place patient at chronically elevated risk for potential self-harm. -Continue medications: Continue with Lexapro 20 mg daily for mood/anxiety, Remeron 30 mg daily at bedtime for appetite/mood/insomnia. Continue with Vistaril 25 mg twice a day when necessary for anxiety, Abilify 5 mg daily for psychotic sx/mood adjunct. Added melatonin 5 mg daily at bedtime when necessary for sleep. -Patient was counseled on the need for medication compliance and appropriate follow-up at mental health and also primary care for medical issues. Patient verbalized understanding and agreed. -Social work to arrange for and conduct family meeting to ensure safety upon discharge and answer any questions/concerns. Social work also to arrange for patients follow up appointments with [facility] for psychiatric care along with follow up with primary care provider. -Patient counseled on abstaining from recreational drugs and marijuana and alcohol. Was informed/educated on the adverse effects on their physical and mental health. Patient verbally agreed and understood. Patient was offered substance abuse treatment however declined at this time. -Patient was instructed to return to the hospital or seek immediate medical care if their psychiatric or medical symptoms do worsen or reoccur. -Patient claims that his roommate is still living in the house with him and he will be returning back home with psychiatric outpatient follow-up at [facility]. Patient will also be given resources and information for local shelters in the area if patient requires assistance future. Allergies Allergy/AdvReac Type Severity Reaction Status Date / Time cephalexin monohydrate Allergy Nausea & Verified 09/20/19 17:07 [From Keflex] Vomiting ergocalciferol (vitamin D2) Allergy WEAKNESS Verified 09/20/19 17:07 [From Vitamin D2] Laboratory Results WBC 11.2 k/uL (3.8-10.6) H 09/27/19 08:49 RBC 4.37 m/uL (4.30-5.90) 09/27/19 08:49 Hgb 13.5 gm/dL (13.0-17.5) 09/27/19 08:49 Hct 41.2 % (39.0-53.0) 09/27/19 08:49 MCV 94.4 fL (80.0-100.0) 09/27/19 08:49 MCH 30.9 pg (25.0-35.0) 09/27/19 08:49 MCHC 32.7 g/dL (31.0-37.0) 09/27/19 08:49 RDW 12.6 % (11.5-15.5) 09/27/19 08:49 Plt Count 302 k/uL (150-450) 09/27/19 08:49 Neutrophils % 78 % 09/27/19 08:49 Lymphocytes % 12 % 09/27/19 08:49 Monocytes % 7 % 09/27/19 08:49 Eosinophils % 2 % 09/27/19 08:49 Basophils % 0 % 09/27/19 08:49 Neutrophils # 8.7 k/uL (1.3-7.7) H 09/27/19 08:49 Lymphocytes # 1.4 k/uL (1.0-4.8) 09/27/19 08:49 Monocytes # 0.8 k/uL (0-1.0) 09/27/19 08:49 Eosinophils # 0.2 k/uL (0-0.7) 09/27/19 08:49 Basophils # 0.0 k/uL (0-0.2) 09/27/19 08:49 Sodium 138 mmol/L (137-145) 09/27/19 08:49 Potassium 4.4 mmol/L (3.5-5.1) 09/27/19 08:49 Chloride 104 mmol/L (98-107) 09/27/19 08:49 Carbon Dioxide 28 mmol/L (22-30) 09/27/19 08:49 Anion Gap 6 mmol/L 09/27/19 08:49 BUN 13 mg/dL (9-20) 09/27/19 08:49 Creatinine 0.88 mg/dL (0.66-1.25) 09/27/19 08:49 Est GFR (CKD-EPI)AfAm >90 (>60 ml/min/1.73 sqM) 09/27/19 08:49 Est GFR (CKD-EPI)NonAf >90 (>60 ml/min/1.73 sqM) 09/27/19 08:49 Glucose 120 mg/dL (74-99) H 09/27/19 08:49 POC Glucose (mg/dL) 123 mg/dL (75-99) H 09/24/19 22:15 POC Glu [place] ID Cosmo Gomez 09/24/19 22:[address] Glu mg/dL 103 09/21/19 08:37 Hemoglobin A1c 5.2 % (4.0-6.0) 09/21/19 08:37 Calcium 9.1 mg/dL (8.4-10.2) 09/27/19 08:49 Total Bilirubin 0.4 mg/dL (0.2-1.3) 09/27/19 08:49 AST 32 U/L (17-59) 09/27/19 08:49 ALT 35 U/L (4-49) 09/27/19 08:49 Alkaline Phosphatase 41 U/L (38-126) 09/27/19 08:49 Troponin I <0.012 ng/mL (0.000-0.034) 09/25/19 07:55 Total Protein 6.8 g/dL (6.3-8.2) 09/27/19 08:49 Albumin 3.8 g/dL (3.5-5.0) 09/27/19 08:49 Triglycerides 309 mg/dL (<150) H 09/21/19 08:37 Cholesterol 135 mg/dL (<200) 09/21/19 08:37 LDL Cholesterol, Calc 40 mg/dL (0-99) 09/21/19 08:37 HDL Cholesterol 33 mg/dL (40-60) L 09/21/19 08:37 TSH 1.440 mIU/L (0.465-4.680) 09/21/19 08:37 Urine Color Colorless 09/23/19 10:30 Urine Appearance Clear (Clear) 09/23/19 10:30 Urine pH 6.5 (5.0-8.0) 09/23/19 10:30 Ur Specific [place] 1.002 (1.001-1.035) 09/23/19 10:30 Urine Protein Negative (Negative) 09/23/19 10:30 Urine Glucose (UA) Negative (Negative) 09/23/19 10:30 Urine Ketones Negative (Negative) 09/23/19 10:30 Urine Blood Negative (Negative) 09/23/19 10:30 Urine Nitrite Negative (Negative) 09/23/19 10:30 Urine Bilirubin Negative (Negative) 09/23/19 10:30 Urine Urobilinogen <2.0 mg/dL (<2.0) 09/23/19 10:30 Ur Leukocyte Esterase Negative (Negative) 09/23/19 10:30 Urine Opiates Screen Not Detected (NotDetected) 09/21/19 22:23 Ur Oxycodone Screen Not Detected (NotDetected) 09/21/19 22:23 Urine Methadone Screen Not Detected (NotDetected) 09/21/19 22:23 Ur Propoxyphene Screen Not Detected (NotDetected) 09/21/19 22:23 Ur Barbiturates Screen Not Detected (NotDetected) 09/21/19 22:23 U Tricyclic Antidepress Not Detected (NotDetected) 09/21/19 22:23 Ur Phencyclidine Scrn Not Detected (NotDetected) 09/21/19 22:23 Ur Amphetamines Screen Not Detected (NotDetected) 09/21/19 22:23 U Methamphetamines Scrn Not Detected (NotDetected) 09/21/19 22:23 U Benzodiazepines Scrn Not Detected (NotDetected) 09/21/19 22:23 Urine Cocaine Screen Not Detected (NotDetected) 09/21/19 22:23 U Marijuana (THC) Screen Not Detected (NotDetected) 09/21/19 22:23 Coronavirus (PCR) Not Detected (Not Detected) 09/23/19 16:00 Vital Signs Temp 98.1 F 09/29/19 06:52 Pulse 106 H 09/29/19 11:19 Resp 20 09/29/19 11:19 BP 106/70 09/29/19 11:19 Pulse Ox 95 09/27/19 06:56 Patient Condition at Discharge: Stable Plan - Discharge Summary New Discharge Prescriptions: New ARIPiprazole [Abilify] 5 mg PO DAILY 30 Days tab Loratadine [Claritin] 10 mg PO DAILY 30 Days tab Nicotine 14Mg/24Hr Patch [Habitrol] 1 patch TRANSDERM DAILY 14 Days patch Escitalopram [Lexapro] 20 mg PO DAILY 30 Days tab Fenofibrate [Lofibra] 160 mg PO DAILY 30 Days tab Melatonin 5 mg PO HS PRN 30 Days #30 tablet PRN Reason: Insomnia Ibuprofen [Motrin] 600 mg PO Q8H PRN tab PRN Reason: Moderate To Severe Pain amLODIPine [Norvasc] 10 mg PO DAILY 30 Days tab Pravastatin Sodium [Pravachol] 40 mg PO DAILY 30 Days tab Mirtazapine [Remeron] 30 mg PO HS 30 Days tab Acetaminophen Tab [Tylenol] 650 mg PO Q4HR PRN tab PRN Reason: Pain/Discomfort hydrOXYzine PAMOATE [Vistaril] 25 mg PO BID PRN 30 Days cap PRN Reason: Anxiety Continue Fluticasone/Salmeterol [Fluticasone-Salmeterol 232-14] 1 puff INHALATION RT- BID Albuterol Inhaler [Ventolin Hfa Inhaler] 1 puff INHALATION RT-QID PRN PRN Reason: Shortness Of Breath Discontinued Pravastatin Sodium [Pravachol] 40 mg PO DAILY Cetirizine HCl 10 mg PO DAILY Albuterol Nebulized [Ventolin Nebulized] 2.5 mg INHALATION RT-Q4H PRN PRN Reason: Shortness Of Breath ALPRAZolam [Xanax] 0.5 mg PO BID PRN PRN Reason: Anxiety Fenofibrate Nanocrystallized [Fenofibrate] 145 mg PO DAILY amLODIPine [Norvasc] 10 mg PO DAILY Escitalopram [Lexapro] 10 mg PO DAILY Discharge Medication List Fluticasone/Salmeterol [Fluticasone-Salmeterol 232-14] 1 puff INHALATION RT-BID 09/19/19 [History] Albuterol Inhaler [Ventolin Hfa Inhaler] 1 puff INHALATION RT-QID PRN 09/20/19 [History] ARIPiprazole [Abilify] 5 mg PO DAILY 30 Days tab 09/29/19 [Rx] Acetaminophen Tab [Tylenol] 650 mg PO Q4HR PRN tab 09/29/19 [Rx] Escitalopram [Lexapro] 20 mg PO DAILY 30 Days tab 09/29/19 [Rx] Fenofibrate [Lofibra] 160 mg PO DAILY 30 Days tab 09/29/19 [Rx] Ibuprofen [Motrin] 600 mg PO Q8H PRN tab 09/29/19 [Rx] Loratadine [Claritin] 10 mg PO DAILY 30 Days tab 09/29/19 [Rx] Melatonin 5 mg PO HS PRN 30 Days #30 tablet 09/29/19 [Rx] Mirtazapine [Remeron] 30 mg PO HS 30 Days tab 09/29/19 [Rx] Nicotine 14Mg/24Hr Patch [Habitrol] 1 patch TRANSDERM DAILY 14 Days patch 09/29/19 [Rx] Pravastatin Sodium [Pravachol] 40 mg PO DAILY 30 Days tab 09/29/19 [Rx] amLODIPine [Norvasc] 10 mg PO DAILY 30 Days tab 09/29/19 [Rx] hydrOXYzine PAMOATE [Vistaril] 25 mg PO BID PRN 30 Days cap 09/29/19 [Rx] Follow up Appointment(s)/Referral(s): [facility] [Outside] - 10/03/19 1:30 pm (Appointment 10/03/19 at 1:30 pm with Nelly over the telephone.) Taina Osman MD [Primary Care Provider] - 1-2 days Activity/Diet/Wound Care/Special Instructions: Activity and diet as tolerated. Avoid the use of street drugs and alcohol. Take all medications as prescribed. When you are in need of refills on your medications please contact your medical provider and/or outpatient psychiatrist to have this done. Please go to scheduled outpatient appointment for aftercare treatment. If symptoms return or become worse, call the crisis line at and/or go to the nearest emergency room for evaluation Discharge Disposition: HOME SELF-CARE
[2019-09-30] MEDS ORDERED: ARIPiprazole 5 MG TAB PO SCH (09:00)
== END 2019-09-29 14:17 | disposition home or self-care (01) | DRG 885 ==
LOC: EC 16:02 → 3MHU 20:15
PROVIDERS: ADMIT Psychiatry & Neurology Psychiatry; ATTEND Psychiatry & Neurology Psychiatry
DX: F32.3 Major depressive disorder, single episode, severe with psychotic features (principal); R45.851 Suicidal ideations; F10.10 Alcohol abuse, uncomplicated; F12.10 Cannabis abuse, uncomplicated; F17.210 Nicotine dependence, cigarettes, uncomplicated; J44.9 Chronic obstructive pulmonary disease, unspecified; E78.5 Hyperlipidemia, unspecified; I10 Essential (primary) hypertension; Z11.59 Encounter for screening for other viral diseases
CPT/HCPCS: 71046; 76770; 80053; 80061; 80306; 81003; 82075; 83036; 84443; 84484; 85025; 90471; 90715; 93005; 94640; 96372; 99285

== ENCOUNTER 2020-07-15 12:27 | Observation (INO) | payer OTHER ==
[2020-07-15] MEDS ORDERED: ALBUTEROL HFA INHALER INHALATION STA (12:45)
[2020-07-15] MEDS ORDERED: DEXAMETHASONE SOD PHOSPHATE 10 MG/ML 1 ML VIAL IV STA (12:45)
--- NOTE | 2020-07-15 13:02 | ED ---
General Adult HPI - General Chief complaint: Shortness of Breath Stated complaint: DARELL Time Seen by Provider: 07/15/20 12:35 Source: patient, EMS, RN notes reviewed, old records reviewed Mode of arrival: EMS Limitations: no limitations - History of Present Illness Initial comments: 55 yo-year-old male who presents for evaluation of dyspnea, cough. Patient has had symptoms for approximately 2 weeks. He completed a course of antibiotics as an outpatient. He continues to have productive cough and wheezing. He has a history of COPD and emphysema. He states he quit smoking 2 days ago. He has had fever, diarrhea. Uncertain if he has come in contact with coronavirus states he was tested 2 weeks ago and was negative. - Related Data Home Medications Medication Instructions Recorded Confirmed Albuterol Nebulized [Ventolin 2.5 mg INHALATION RT-QID 07/15/20 07/15/20 Nebulized] Albuterol Sulfate [Proair Hfa] 2 puff INHALATION RT-Q6H PRN 07/15/20 07/15/20 Ascorbic Acid [Vitamin C] 500 mg PO DAILY 07/15/20 07/15/20 Fenofibrate Nanocrystallized 145 mg PO DAILY 07/15/20 07/15/20 [Fenofibrate] Montelukast [Singulair] 10 mg PO HS 07/15/20 07/15/20 Pravastatin Sodium [Pravachol] 40 mg PO DAILY 07/15/20 07/15/20 Previous Rx's Medication Instructions Recorded Loratadine [Claritin] 10 mg PO DAILY 30 Days tab 09/29/19 amLODIPine [Norvasc] 10 mg PO DAILY 30 Days tab 09/29/19 Allergies Allergy/AdvReac Type Severity Reaction Status Date / Time Penicillins Allergy Rash/Hives Verified 07/15/20 14:11 cephalexin monohydrate AdvReac Nausea & Verified 07/15/20 14:11 [From Keflex] Vomiting ergocalciferol (vitamin D2) AdvReac WEAKNESS Verified 07/15/20 14:11 [From Vitamin D2] Review of Systems ROS Statement: Those systems with pertinent positive or pertinent negative responses have been documented in the HPI. ROS Other: All systems not noted in ROS Statement are negative. Past Medical History Past Medical History: Asthma, COPD, Hyperlipidemia, Hypertension History of Any Multi-Drug Resistant Organisms: None Reported Past Surgical History: No Surgical Hx Reported Additional Past Surgical History / Comment(s): L arm Past Psychological History: Anxiety, Depression Smoking Status: Former smoker Past Alcohol Use History: Occasional Past Drug Use History: Marijuana - Past Family History Father Family Medical History: Asthma General Exam Limitations: no limitations General appearance: alert, in distress Head exam: Present: atraumatic, normocephalic Eye exam: Present: normal appearance, PERRL ENT exam: Present: normal exam Neck exam: Present: normal inspection. Absent: tenderness, meningismus Respiratory exam: Present: respiratory distress, wheezes, accessory muscle use, decreased breath sounds Cardiovascular Exam: Present: regular rate, normal rhythm GI/Abdominal exam: Present: soft. Absent: distended, tenderness Extremities exam: Present: normal inspection, normal capillary refill, pedal edema. Absent: calf tenderness Neurological exam: Present: alert, oriented X3, CN II-XII intact. Absent: motor sensory deficit Psychiatric exam: Present: normal affect, normal mood Skin exam: Present: warm, dry, intact. Absent: cyanosis, diaphoretic Course Vital Signs 07/15/20 07/15/20 12:29 13:49 Temperature 99.6 F Pulse Rate 85 80 Respiratory 24 20 Rate Blood Pressure 134/78 O2 Sat by Pulse 95 98 Oximetry EKG Findings - EKG Comments: EKG Findings:: EKG: Normal sinus rhythm, rate of 77 ID interval 170, QRS duration 94, QTC 443 Medical Decision Making - Medical Decision Making 55-year-old male presenting with increased cough and dyspnea, history of COPD. He has had outpatient treatment for both COPD exacerbation and pneumonia over the past 2 weeks and he states he continues to have respiratory issues. Patient has normal CBC, normal CMP, he has a mildly elevated d-dimer, CT angiography has been ordered results are pending. His coronavirus test is negative. He has an x-ray showing a left lower lobe pneumonia. He started on antibiotics as well as steroids. He will be admitted for treatment of both COPD exacerbation and pneumonia, failed outpatient treatment. - Lab Data Result diagrams: 07/15/20 13:06 07/15/20 13:06 Lab Results 07/15/20 07/15/20 07/15/20 Range/Units 13:06 13:06 13:06 WBC 7.6 (3.8-10.6) k/uL RBC 4.79 (4.30-5.90) m/uL Hgb 15.1 (13.0-17.5) gm/dL Hct 45.0 (39.0-53.0) % MCV 94.0 (80.0-100.0) fL MCH 31.6 (25.0-35.0) pg MCHC 33.7 (31.0-37.0) g/dL RDW 13.3 (11.5-15.5) % Plt Count 282 (150-450) k/uL MPV 7.6 Neutrophils % 62 % Lymphocytes % 21 % Monocytes % 8 % Eosinophils % 6 % Basophils % 1 % Neutrophils # 4.7 (1.3-7.7) k/uL Lymphocytes # 1.6 (1.0-4.8) k/uL Monocytes # 0.6 (0-1.0) k/uL Eosinophils # 0.5 (0-0.7) k/uL Basophils # 0.1 (0-0.2) k/uL PT 10.4 (9.0-12.0) sec INR 1.0 (<1.2) APTT 20.3 L (22.0-30.0) sec D-Dimer 0.87 H (<0.60) mg/L FEU Sodium 138 (137-145) mmol/L Potassium 4.0 (3.5-5.1) mmol/L Chloride 103 (98-107) mmol/L Carbon Dioxide 24 (22-30) mmol/L Anion Gap 11 mmol/L BUN 10 (9-20) mg/dL Creatinine 0.78 (0.66-1.25) mg/dL Est GFR (CKD-EPI)AfAm >90 (>60 ml/min/1.73 sqM) Est GFR (CKD-EPI)NonAf >90 (>60 ml/min/1.73 sqM) Glucose 108 H (74-99) mg/dL Plasma Lactic Acid [place] (0.7-2.0) mmol/L Calcium 9.8 (8.4-10.2) mg/dL Magnesium 1.7 (1.6-2.3) mg/dL Total Bilirubin 0.7 (0.2-1.3) mg/dL AST 35 (17-59) U/L ALT 48 (4-49) U/L Alkaline Phosphatase 48 (38-126) U/L Lactate Dehydrogenase 486 (313-618) U/L C-Reactive Protein <0.5 (<1.0) mg/dL Total Protein 7.4 (6.3-8.2) g/dL Albumin 4.4 (3.5-5.0) g/dL Coronavirus (PCR) (Not Detectd) 07/15/20 07/15/20 Range/Units 13:06 13:06 WBC (3.8-10.6) k/uL RBC (4.30-5.90) m/uL Hgb (13.0-17.5) gm/dL Hct (39.0-53.0) % MCV (80.0-100.0) fL MCH (25.0-35.0) pg MCHC (31.0-37.0) g/dL RDW (11.5-15.5) % Plt Count (150-450) k/uL MPV Neutrophils % % Lymphocytes % % Monocytes % % Eosinophils % % Basophils % % Neutrophils # (1.3-7.7) k/uL Lymphocytes # (1.0-4.8) k/uL Monocytes # (0-1.0) k/uL Eosinophils # (0-0.7) k/uL Basophils # (0-0.2) k/uL PT (9.0-12.0) sec INR (<1.2) APTT (22.0-30.0) sec D-Dimer (<0.60) mg/L FEU Sodium (137-145) mmol/L Potassium (3.5-5.1) mmol/L Chloride (98-107) mmol/L Carbon Dioxide (22-30) mmol/L Anion Gap mmol/L BUN (9-20) mg/dL Creatinine (0.66-1.25) mg/dL Est GFR (CKD-EPI)AfAm (>60 ml/min/1.73 sqM) Est GFR (CKD-EPI)NonAf (>60 ml/min/1.73 sqM) Glucose (74-99) mg/dL Plasma Lactic Acid [place] 1.9 (0.7-2.0) mmol/L Calcium (8.4-10.2) mg/dL Magnesium (1.6-2.3) mg/dL Total Bilirubin (0.2-1.3) mg/dL AST (17-59) U/L ALT (4-49) U/L Alkaline Phosphatase (38-126) U/L Lactate Dehydrogenase (313-618) U/L C-Reactive Protein (<1.0) mg/dL Total Protein (6.3-8.2) g/dL Albumin (3.5-5.0) g/dL Coronavirus (PCR) Not Detected (Not Detectd) Disposition Clinical Impression: COPD exacerbation, Community acquired pneumonia Disposition: ADMITTED IP TO THIS HOSP Condition: Stable Is patient prescribed a controlled substance at d/c from ED?: No Referrals: Taina Osman MD [Primary Care Provider] - 1-2 days Decision to Admit Reason: Admit from EC Decision Date: 07/15/20 Decision Time: 14:28
[2020-07-15 13:20] LABS: Basophils # (A) 0.1 k/uL (0-0.2); Basophils % (A) 1 %; Eosinophils # (A) 0.5 k/uL (0-0.7); Eosinophils % (A) 6 %; HGB 15.1 gm/dL (13.0-17.5); Lymphocytes # (A) 1.6 k/uL (1.0-4.8); Lymphocytes % (A) 21 %; MCH 31.6 pg (25.0-35.0); MCHC 33.7 g/dL (31.0-37.0); Mean Platelet Volume 7.6; Monocytes # (A) 0.6 k/uL (0-1.0); Monocytes % (A) 8 %; Neutrophils # (A) 4.7 k/uL (1.3-7.7); Neutrophils % (A) 62 %; Platelet Count 282 k/uL (150-450); RBC 4.79 m/uL (4.30-5.90); RDW 13.3 % (11.5-15.5); WBC 7.6 k/uL (3.8-10.6)
--- NOTE | 2020-07-15 13:27 | XR ---
EXAMINATION TYPE: XR chest 1V portable DATE OF EXAM: 07/15/2020 COMPARISON: Prior chest x-ray September 23, 2019 HISTORY: Cough and weakness. TECHNIQUE: Single frontal view of the chest is obtained. FINDINGS: Diminished inspiration on current study. There is new left basilar opacity silhouetting lef t heart border and hemidiaphragm. Right lung appears predominantly clear. The cardiac silhouette size is stable and within normal limits. The osseous structures are intact. IMPRESSION: New lingular and left lower lobe acute infiltrate and/or atelectasis.
[2020-07-15 13:31] LABS: ALT 48 U/L (4-49); AST 35 U/L (17-59); African American GFR (CKD) >90 (>60 ml/min/1.73 sqM); Albumin 4.4 g/dL (3.5-5.0); Alkaline Phosphatase 48 U/L (38-126); Anion Gap 11 mmol/L; Blood Urea Nitrogen 10 mg/dL (9-20); C Reactive Protein <0.5 mg/dL (<1.0); Calcium 9.8 mg/dL (8.4-10.2); Carbon Dioxide 24 mmol/L (22-30); Chloride 103 mmol/L (98-107); Glucose 108 mg/dL (74-99); LDH 486 U/L (313-618); Magnesium 1.7 mg/dL (1.6-2.3); Non-African American GFR(CKD) >90 (>60 ml/min/1.73 sqM); Sodium 138 mmol/L (137-145); Total Bilirubin 0.7 mg/dL (0.2-1.3); Total Protein 7.4 g/dL (6.3-8.2)
[2020-07-15 13:43] LABS: Prothrombin Time 10.4 sec (9.0-12.0)
[2020-07-15 13:49] LABS: Partial Thromboplastin Time 20.3 sec (22.0-30.0)
[2020-07-15 14:03] LABS: D-Dimer 0.87 mg/L FEU (<0.60)
[2020-07-15] MEDS ORDERED: AZITHROMYCIN 500 MG in SODIUM CHLORIDE 0.9% 250 ML IVPB STA (14:04)
[2020-07-15] MEDS ORDERED: cefTRIAXone IN SWFI 1,000 MG/10 ML SYRINGE IVP STA (14:04)
[2020-07-15] MEDS ORDERED: IPRATROPIUM-ALBUTEROL 3 ML NEB INHALATION PRN (14:25)
--- NOTE | 2020-07-15 15:26 | CT ---
EXAMINATION TYPE: CT angio chest DATE OF EXAM: 07/15/2020 COMPARISON: 09/14/2011 HISTORY: Difficulty breathing, elevated d-dimer. CT DLP: 767.6 mGycm Automated exposure control for dose reduction was used. CONTRAST: Performed with IV Contrast, patient injected with 100 mL of Isovue 370. There are 3-D post processed images. Images obtained from the thoracic inlet to the diaphragm with IV contrast. FINDINGS: The lungs are clear of consolidation. There is no evidence of a pulmonary mass. There is no pleural e ffusion. There is no pericardial effusion. There is 6 mm nodular density adjacent to the pleura in th e posterior right upper lobe unchanged. There is no mediastinal adenopathy. Thoracic aorta is intact. There is no aneurysm or dissection. The re are bilateral bronchial lymph nodes up to 1 cm. There is normal contrast opacification of the pulmonary arteries. There are no filling defects. Upper abdominal soft tissues are intact. Bony thorax is intact. Sternum appears normal. IMPRESSION: No evidence of pulmonary embolism. No evidence of acute lung disease. No suspicious pulmonary mass. N o adverse change compared to old exam.
[2020-07-15] MEDS ORDERED: IPRATROPIUM-ALBUTEROL 3 ML NEB INHALATION SCH (16:00)
[2020-07-15 17:00] LABS: Ferritin 515.3 ng/mL (22.0-322.0)
[2020-07-15] MEDS ORDERED: ACETAMINOPHEN TAB 325 MG TAB PO PRN (17:50)
[2020-07-15] MEDS: ALBUTEROL HFA INHALER INHALATION SCH (19:37)
[2020-07-15] MEDS: methylPREDNISolone SOD SUCCI 125 MG/2 ML VIAL IV SCH (20:14)
[2020-07-16] MEDS: methylPREDNISolone SOD SUCCI 125 MG/2 ML VIAL IV SCH ×5 (00:49→23:28)
[2020-07-16] MEDS: ALBUTEROL HFA INHALER INHALATION SCH (07:58)
[2020-07-16] MEDS ORDERED: ALBUTEROL NEBULIZED 2.5 MG/3 ML INHALATION PRN (09:23)
[2020-07-16] MEDS: amLODIPine 10 MG TAB PO SCH (10:53)
[2020-07-16] MEDS: FENOFIBRATE 160 MG TAB PO SCH (10:53)
[2020-07-16] MEDS: PRAVASTATIN SODIUM 40 MG TAB PO SCH (10:54)
[2020-07-16] MEDS: ENOXAPARIN 40 MG/0.4 ML SYRINGE SQ SCH (10:54)
[2020-07-16] MEDS ORDERED: LEVOFLOXACIN 500MG-D5W PMX 500 MG in DEXTROSE/WATER 1 100ML.BAG IVPB SCH (11:00)
[2020-07-16] MEDS: ALBUTEROL NEBULIZED 2.5 MG/3 ML INHALATION SCH ×3 (11:39→20:26)
--- NOTE | 2020-07-16 16:37 | P.HPIM ---
History of Present Illness H&P Date: 07/16/20 Denny Marin, is a 55 year old male who presented to [facility] emergency room with a chief complaint of worsening shortness of breath, and cough, patient stated that he was treated as outpatient with a course of antibiotic without significant improvement. He was evaluated in the emergency room vital examination on presentation revealed a temperature of 99.6 pulse 85 respiration 24 blood pressure 134/78 pulse ox 95% on room air, his white blood count was 7.6 hemoglobin 15.1 platelet count 282, d-dimer 0.87 sodium 138 potassium 4.0 BUN 10 creatinine 0.78 ALT and AST were normal alkaline phosphatase lactated dehydrogenase and C reactive protein were normal, coronavirus PCR testing was negative. Chest x-ray done in the emergency room revealed new lingular and left lower lobe acute infiltrates, EKG was normal, CT angiogram of the chest did not reveal any evidence of pulmonary embolism. Preliminary diagnosis was acute pneumonia and acute exacerbation of COPD patient was started on IV antibiotics and IV steroids and was admitted to telemetry floor. Patient has a long history of smoking he states that he quit 2 days ago he has a known history of chronic obstructive pulmonary disease. Past Medical History Past Medical History: Asthma, COPD, Hyperlipidemia, Hypertension History of Any Multi-Drug Resistant Organisms: None Reported Past Surgical History: No Surgical Hx Reported Additional Past Surgical History / Comment(s): L arm Past Anesthesia/Blood Transfusion Reactions: No Reported Reaction Past Psychological History: Anxiety, Depression Smoking Status: Former smoker Past Alcohol Use History: Occasional Past Drug Use History: Marijuana - Past Family History Father Family Medical History: Asthma Medications and Allergies Home Medications Medication Instructions Recorded Confirmed Type Loratadine [Claritin] 10 mg PO DAILY 30 Days tab 09/29/19 07/15/20 Rx amLODIPine [Norvasc] 10 mg PO DAILY 30 Days tab 09/29/19 07/15/20 Rx Albuterol Nebulized [Ventolin 2.5 mg INHALATION RT-QID 07/15/20 07/15/20 History Nebulized] Albuterol Sulfate [Proair Hfa] 2 puff INHALATION RT-Q6H PRN 07/15/20 07/15/20 H istory Ascorbic Acid [Vitamin C] 500 mg PO DAILY 07/15/20 07/15/20 History Fenofibrate Nanocrystallized 145 mg PO DAILY 07/15/20 07/15/20 History [Fenofibrate] Montelukast [Singulair] 10 mg PO HS 07/15/20 07/15/20 History Pravastatin Sodium [Pravachol] 40 mg PO DAILY 07/15/20 07/15/20 History Allergies Allergy/AdvReac Type Severity Reaction Status Date / Time Penicillins Allergy Rash/Hives Verified 07/15/20 14:11 cephalexin monohydrate AdvReac Nausea & Verified 07/15/20 14:11 [From Keflex] Vomiting ergocalciferol (vitamin D2) AdvReac WEAKNESS Verified 07/15/20 14:11 [From Vitamin D2] Physical Exam Vitals: Vital Signs Temp Pulse Pulse Pulse Resp BP BP 07/16/20 07:40 97.1 F L 81 18 138/80 07/16/20 02:00 96.8 F L 88 20 116/57 07/15/20 20:00 96.4 F L 86 16 141/63 07/15/20 18:10 96.4 F L 86 16 141/63 07/15/20 17:41 100.2 F H 80 18 123/63 07/15/20 15:53 89 18 123/68 07/15/20 15:02 99.2 F 72 20 114/67 07/15/20 13:49 80 20 07/15/20 12:29 99.6 F 85 24 134/78 Pulse Ox 07/16/20 07:40 90 L 07/16/20 02:00 95 07/15/20 20:00 96 07/15/20 18:10 96 07/15/20 17:41 95 07/15/20 15:53 97 07/15/20 15:02 95 07/15/20 13:49 98 07/15/20 12:29 95 Intake and Output 07/15/20 07/16/20 07/16/20 22:59 06:59 14:59 Output Total 1 Balance -1 Output: Urine 1 Other: # Voids 1 Weight 132.449 kg In general patient is alert and oriented 3 in no apparent distress HEENT head normocephalic and atraumatic Neck is supple no JVD no goiter no lymphadenopathy Chest exam reveals a few scattered crackles no wheezing Cardiac exam reveals regular heart sounds no murmurs Abdomen is soft nontender no organomegaly with normal bowel sounds Extremity exam reveals no edema no cyanosis or clubbing Neurological examination reveals no gross focal deficit Results CBC & Chem 7: 07/15/20 13:06 07/15/20 13:06 Labs: Abnormal Lab Results - Last 24 Hours (Table) 07/15/20 07/15/20 Range/Units 13:06 13:06 APTT 20.3 L (22.0-30.0) sec D-Dimer 0.87 H (<0.60) mg/L FEU Glucose 108 H (74-99) mg/dL Ferritin 515.3 H (22.0-322.0) ng/mL Thrombosis Risk Factor Assmnt - Choose All That Apply Each Factor Represents 1 point: Obesity (BMI >25), Serious lung disease incl. pneumonia (< 1month) Each Risk Factor Represents 2 Points: Patient confined to bed Thrombosis Risk Factor Assessment Total Risk Factor Score: 4 Thrombosis Risk Factor Assessment Level: Moderate Risk Assessment and Plan Plan: Acute lingular and left lower lobe infiltrate suggestive of pneumonia Acute exacerbation of chronic obstructive pulmonary disease Underlying history of hypertension Underlying history of hyperlipidemia Underlying history of tobacco abuse. At this time patient was started on IV antibiotics and IV steroids and inhaled bronchodilators Continue home medications Will follow in a.m. possible discharge to home in 1-2 days
[2020-07-16] MEDS ORDERED: MONTELUKAST 10 MG TAB PO SCH (21:00)
[2020-07-17] MEDS: methylPREDNISolone SOD SUCCI 125 MG/2 ML VIAL IV SCH ×2 (05:24→11:16)
[2020-07-17] MEDS: ALBUTEROL NEBULIZED 2.5 MG/3 ML INHALATION SCH ×2 (07:47→10:45)
[2020-07-17 07:56] VITALS: BP 126/59; RESP 18; TEMP 96.1
[2020-07-17] MEDS: ENOXAPARIN 40 MG/0.4 ML SYRINGE SQ SCH (08:09)
[2020-07-17] MEDS: PRAVASTATIN SODIUM 40 MG TAB PO SCH (08:09)
[2020-07-17] MEDS: amLODIPine 10 MG TAB PO SCH (08:09)
[2020-07-17] MEDS: FENOFIBRATE 160 MG TAB PO SCH (08:09)
[2020-07-17 08:50] LABS: Basophils % (A) 0 %; Eosinophils % (A) 0 %; HCT 43.2 % (39.0-53.0); Lymphocytes # (A) 0.7 k/uL (1.0-4.8); Lymphocytes % (A) 5 %; MCHC 32.5 g/dL (31.0-37.0); MCV 95.5 fL (80.0-100.0); Mean Platelet Volume 8.1; Monocytes # (A) 0.5 k/uL (0-1.0); Monocytes % (A) 4 %; Neutrophils # (A) 12.3 k/uL (1.3-7.7); Neutrophils % (A) 91 %; Platelet Count 269 k/uL (150-450); RBC 4.53 m/uL (4.30-5.90); RDW 13.4 % (11.5-15.5); WBC 13.5 k/uL (3.8-10.6)
[2020-07-17] MEDS ORDERED: ASCORBIC ACID 500 MG TAB PO SCH (09:00)
[2020-07-17] MEDS ORDERED: LEVOFLOXACIN 500 MG TAB PO SCH (09:00)
[2020-07-17] MEDS ORDERED: LORATADINE 10 MG TAB PO SCH (09:00)
[2020-07-17 09:03] LABS: ALT 34 U/L (4-49); AST 28 U/L (17-59); African American GFR (CKD) >90 (>60 ml/min/1.73 sqM); Albumin 4.2 g/dL (3.5-5.0); Alkaline Phosphatase 44 U/L (38-126); Anion Gap 11 mmol/L; Blood Urea Nitrogen 20 mg/dL (9-20); Calcium 9.7 mg/dL (8.4-10.2); Carbon Dioxide 25 mmol/L (22-30); Chloride 103 mmol/L (98-107); Glucose 188 mg/dL (74-99); Non-African American GFR(CKD) >90 (>60 ml/min/1.73 sqM); Potassium 4.6 mmol/L (3.5-5.1); Sodium 139 mmol/L (137-145); Total Bilirubin 0.4 mg/dL (0.2-1.3); Total Protein 6.9 g/dL (6.3-8.2)
[2020-07-17 10:54] VITALS: PULSE 80
--- NOTE | 2020-07-17 12:30 | P.DS ---
Providers Date of admission: 07/15/20 14:25 Expected date of discharge: 07/17/20 Attending physician: Taina Osman Primary care physician: Taina Osman [facility] Course: Diagnosis on discharge: Acute lingular and left lower lobe infiltrate suggestive of pneumonia Acute exacerbation of chronic obstructive pulmonary disease Underlying history of hypertension Underlying history of hyperlipidemia Underlying history of tobacco abuse. Hospital course: Denny Marin, is a 55 year old male who presented to [facility] emergency room with a chief complaint of worsening shortness of breath, and cough, patient stated that he was treated as outpatient with a course of antibiotic without significant improvement. He was evaluated in the emergency room vital examination on presentation revealed a temperature of 99.6 pulse 85 respiration 24 blood pressure 134/78 pulse ox 95% on room air, his white blood count was 7.6 hemoglobin 15.1 platelet count 282, d-dimer 0.87 sodium 138 potassium 4.0 BUN 10 creatinine 0.78 ALT and AST were normal alkaline phosphatase lactated dehydrogenase and C reactive protein were normal, coronavirus PCR testing was negative. Chest x-ray done in the emergency room revealed new lingular and left lower lobe acute infiltrates, EKG was normal, CT angiogram of the chest did not reveal any evidence of pulmonary embolism. Preliminary diagnosis was acute pneumonia and acute exacerbation of COPD patient was started on IV antibiotics and IV steroids and was admitted to telemetry floor. Patient has a long history of smoking he states that he quit 2 days ago he has a known history of chronic obstructive pulmonary disease. On 07/17/2020 patient was seen and examined on the medical floor he is alert and oriented 3 in no apparent distress he reports improvement in his cough and shortness of breath, his exam reveals improvement in his lung sounds no crackles no wheezing patient will be switched to oral antibiotic Levaquin and oral prednisone he will be discharged home today Will follow-up in the office next week for further evaluation and treatment Patient Condition at Discharge: Stable Plan - Discharge Summary Discharge Rx Participant: No New Discharge Prescriptions: New Levofloxacin [Levaquin] 500 mg PO DAILY tab predniSONE 10 mg PO DIRECTED 12 Days #30 tab Continue Loratadine [Claritin] 10 mg PO DAILY 30 Days tab amLODIPine [Norvasc] 10 mg PO DAILY 30 Days tab Albuterol Sulfate [Proair Hfa] 2 puff INHALATION RT-Q6H PRN PRN Reason: Shortness Of Breath Montelukast [Singulair] 10 mg PO HS Fenofibrate Nanocrystallized [Fenofibrate] 145 mg PO DAILY Ascorbic Acid [Vitamin C] 500 mg PO DAILY Albuterol Nebulized [Ventolin Nebulized] 2.5 mg INHALATION RT-QID Pravastatin Sodium [Pravachol] 40 mg PO DAILY Discharge Medication List Loratadine [Claritin] 10 mg PO DAILY 30 Days tab 09/29/19 [Rx] amLODIPine [Norvasc] 10 mg PO DAILY 30 Days tab 09/29/19 [Rx] Albuterol Nebulized [Ventolin Nebulized] 2.5 mg INHALATION RT-QID 07/15/20 [History] Albuterol Sulfate [Proair Hfa] 2 puff INHALATION RT-Q6H PRN 07/15/20 [History] Ascorbic Acid [Vitamin C] 500 mg PO DAILY 07/15/20 [History] Fenofibrate Nanocrystallized [Fenofibrate] 145 mg PO DAILY 07/15/20 [History] Montelukast [Singulair] 10 mg PO HS 07/15/20 [History] Pravastatin Sodium [Pravachol] 40 mg PO DAILY 07/15/20 [History] Levofloxacin [Levaquin] 500 mg PO DAILY tab 07/17/20 [Rx] predniSONE 10 mg PO DIRECTED 12 Days #30 tab 07/17/20 [Rx] Follow up Appointment(s)/Referral(s): Taina Osman MD [Primary Care Provider] - 1-2 days
== END 2020-07-17 13:00 | disposition home or self-care (01) ==
LOC: EC 12:27 → 1SOBS 14:25 → INTOOBSV 14:25 → 1SOBS 17:41 → UNDODISIN 07-17 13:00
PROVIDERS: ADMIT Internal Medicine; ATTEND Internal Medicine
DX: J44.1 Chronic obstructive pulmonary disease with (acute) exacerbation (principal); J18.9 Pneumonia, unspecified organism; J44.0 Chronic obstructive pulmonary disease with (acute) lower respiratory infection; Z20.822 Contact with and (suspected) exposure to COVID-19; F17.210 Nicotine dependence, cigarettes, uncomplicated; I10 Essential (primary) hypertension; E78.5 Hyperlipidemia, unspecified; F32.9 Major depressive disorder, single episode, unspecified; F41.9 Anxiety disorder, unspecified; Z79.899 Other long term (current) drug therapy; E66.9 Obesity, unspecified; Z68.41 Body mass index [BMI] 40.0-44.9, adult; Z88.1 Allergy status to other antibiotic agents; Z88.0 Allergy status to penicillin; Z82.5 Family history of asthma and other chronic lower respiratory diseases
CPT/HCPCS: 96366 ×2; 96375 ×3; 96376 ×2; 96365; 99285; 36415; 94640 ×6; 94760; 93005; 85379; 80053 ×2; 82728; 83605; 83615; 83735; 85025 ×2; 85610; 85730; 86140; 87040; 84145; 87635; 71045; 71275; G0378 ×3; J1100; J2930 ×3; J1956; J0456; J1650 ×2; J0696; Q9967

== ENCOUNTER 2020-08-27 13:10 | Observation (INO) | payer OTHER ==
[2020-08-27] MEDS ORDERED: IPRATROPIUM-ALBUTEROL 3 ML NEB INHALATION STA (13:39)
--- NOTE | 2020-08-27 13:41 | ED ---
General Adult HPI - General Chief complaint: Shortness of Breath Stated complaint: DARELL Time Seen by Provider: 08/27/20 13:29 Source: patient, EMS, RN notes reviewed Mode of arrival: EMS Limitations: no limitations - History of Present Illness Initial comments: Patient is a pleasant 55-year-old male presenting to the emergency Department with complaints of difficulty breathing. Onset of symptoms was around 4 days ago and has purposely worsened since that time. Patient does have cough with occasional white sputum production. Symptoms are similar to previous COPD/asthma. Patient does have some mild leg edema which is somewhat chronic for him. Patient denies any history of CHF. No calf pain. No fevers at home. No chest pain. Patient has been tested multiple times negative for covid - Related Data Home Medications Medication Instructions Recorded Confirmed Albuterol Nebulized [Ventolin 2.5 mg INHALATION RT-QID PRN 07/15/20 08/27/20 Nebulized] Albuterol Sulfate [Proair Hfa] 2 puff INHALATION RT-Q6H PRN 07/15/20 08/27/20 Ascorbic Acid [Vitamin C] 500 mg PO DAILY 07/15/20 08/27/20 Fenofibrate Nanocrystallized 145 mg PO DAILY 07/15/20 08/27/20 [Fenofibrate] Montelukast [Singulair] 10 mg PO HS 07/15/20 08/27/20 Pravastatin Sodium [Pravachol] 40 mg PO DAILY 07/15/20 08/27/20 Fluticasone Propionate [Flovent 1 puff INHALATION RT-BID PRN 08/27/20 08/27/20 Hfa 110 mcg] Previous Rx's Medication Instructions Recorded Loratadine [Claritin] 10 mg PO DAILY 30 Days tab 09/29/19 amLODIPine [Norvasc] 10 mg PO DAILY 30 Days tab 09/29/19 Allergies Allergy/AdvReac Type Severity Reaction Status Date / Time Penicillins Allergy Rash/Hives Verified 08/27/20 14:29 cephalexin monohydrate AdvReac Nausea & Verified 08/27/20 14:29 [From Keflex] Vomiting ergocalciferol (vitamin D2) AdvReac WEAKNESS Verified 08/27/20 14:29 [From Vitamin D2] Review of Systems ROS Statement: Those systems with pertinent positive or pertinent negative responses have been documented in the HPI. ROS Other: All systems not noted in ROS Statement are negative. Constitutional: Denies: fever Eyes: Denies: eye pain ENT: Reports: congestion. Denies: ear pain Respiratory: Reports: cough, dyspnea Cardiovascular: Denies: chest pain Endocrine: Denies: fatigue Genitourinary: Denies: dysuria Musculoskeletal: Denies: back pain Skin: Denies: rash Neurological: Denies: weakness Past Medical History Past Medical History: Asthma, COPD, Hyperlipidemia, Hypertension History of Any Multi-Drug Resistant Organisms: None Reported Past Surgical History: No Surgical Hx Reported Additional Past Surgical History / Comment(s): L arm Past Anesthesia/Blood Transfusion Reactions: No Reported Reaction Past Psychological History: Anxiety, Depression Smoking Status: Former smoker Past Alcohol Use History: Occasional Past Drug Use History: Marijuana - Past Family History Father Family Medical History: Asthma General Exam Limitations: no limitations General appearance: alert, in no apparent distress Head exam: Present: normocephalic Eye exam: Present: normal appearance Neck exam: Present: normal inspection Respiratory exam: Present: wheezes. Absent: respiratory distress Cardiovascular Exam: Present: regular rate, normal rhythm GI/Abdominal exam: Present: soft. Absent: tenderness Extremities exam: Present: pedal edema (Mild bilateral). Absent: calf tenderness Neurological exam: Present: alert Psychiatric exam: Present: normal affect, normal mood Skin exam: Present: normal color Course Vital Signs 08/27/20 13:21 Temperature 100.1 F H Pulse Rate 88 Respiratory 18 Rate Blood Pressure 142/67 O2 Sat by Pulse 97 Oximetry EKG Findings - EKG Comments: EKG Findings:: Normal sinus rhythm with a rate of 81. LA 176. QRS 94. QT 32. QTC 443. Normal axis. Normal QRS. No acute ST change. Medical Decision Making - Medical Decision Making Patient reevaluated and updated. Case was discussed with Dr. Osman, who will admit his patient. - Lab Data Result diagrams: 08/27/20 14:28 08/27/20 14:28 Lab Results 08/27/20 08/27/20 08/27/20 Range/Units 14:28 14:28 14:28 WBC 7.0 (3.8-10.6) k/uL RBC 4.57 (4.30-5.90) m/uL Hgb 14.0 (13.0-17.5) gm/dL Hct 42.6 (39.0-53.0) % MCV 93.3 (80.0-100.0) fL MCH 30.6 (25.0-35.0) pg MCHC 32.8 (31.0-37.0) g/dL RDW 13.6 (11.5-15.5) % Plt Count 274 (150-450) k/uL MPV 9.7 Neutrophils % 55 % Lymphocytes % 23 % Monocytes % 9 % Eosinophils % 10 % Basophils % 1 % Neutrophils # 3.8 (1.3-7.7) k/uL Lymphocytes # 1.6 (1.0-4.8) k/uL Monocytes # 0.6 (0-1.0) k/uL Eosinophils # 0.7 (0-0.7) k/uL Basophils # 0.0 (0-0.2) k/uL PT 10.3 (9.0-12.0) sec INR 1.0 (<1.2) APTT 16.7 L (22.0-30.0) sec Sodium 138 (137-145) mmol/L Potassium 4.4 (3.5-5.1) mmol/L Chloride 105 (98-107) mmol/L Carbon Dioxide 25 (22-30) mmol/L Anion Gap 8 mmol/L BUN 14 (9-20) mg/dL Creatinine 0.75 (0.66-1.25) mg/dL Est GFR (CKD-EPI)AfAm >90 (>60 ml/min/1.73 sqM) Est GFR (CKD-EPI)NonAf >90 (>60 ml/min/1.73 sqM) Glucose 109 H (74-99) mg/dL Plasma Lactic Acid German (0.7-2.0) mmol/L Calcium 9.6 (8.4-10.2) mg/dL Magnesium 1.9 (1.6-2.3) mg/dL Total Bilirubin 0.5 (0.2-1.3) mg/dL AST 37 (17-59) U/L ALT 35 (4-49) U/L Alkaline Phosphatase 35 L (38-126) U/L Troponin I (0.000-0.034) ng/mL NT-Pro-B Natriuret Pep pg/mL Total Protein 7.0 (6.3-8.2) g/dL Albumin 4.3 (3.5-5.0) g/dL Coronavirus (PCR) (Not Detectd) 08/27/20 08/27/20 08/27/20 Range/Units 14:28 14:28 14:28 WBC (3.8-10.6) k/uL RBC (4.30-5.90) m/uL Hgb (13.0-17.5) gm/dL Hct (39.0-53.0) % MCV (80.0-100.0) fL MCH (25.0-35.0) pg MCHC (31.0-37.0) g/dL RDW (11.5-15.5) % Plt Count (150-450) k/uL MPV Neutrophils % % Lymphocytes % % Monocytes % % Eosinophils % % Basophils % % Neutrophils # (1.3-7.7) k/uL Lymphocytes # (1.0-4.8) k/uL Monocytes # (0-1.0) k/uL Eosinophils # (0-0.7) k/uL Basophils # (0-0.2) k/uL PT (9.0-12.0) sec INR (<1.2) APTT (22.0-30.0) sec Sodium (137-145) mmol/L Potassium (3.5-5.1) mmol/L Chloride (98-107) mmol/L Carbon Dioxide (22-30) mmol/L Anion Gap mmol/L BUN (9-20) mg/dL Creatinine (0.66-1.25) mg/dL Est GFR (CKD-EPI)AfAm (>60 ml/min/1.73 sqM) Est GFR (CKD-EPI)NonAf (>60 ml/min/1.73 sqM) Glucose (74-99) mg/dL Plasma Lactic Acid German 1.8 (0.7-2.0) mmol/L Calcium (8.4-10.2) mg/dL Magnesium (1.6-2.3) mg/dL Total Bilirubin (0.2-1.3) mg/dL AST (17-59) U/L ALT (4-49) U/L Alkaline Phosphatase (38-126) U/L Troponin I <0.012 (0.000-0.034) ng/mL NT-Pro-B Natriuret Pep 85 pg/mL Total Protein (6.3-8.2) g/dL Albumin (3.5-5.0) g/dL Coronavirus (PCR) (Not Detectd) 08/27/20 Range/Units 14:28 WBC (3.8-10.6) k/uL RBC (4.30-5.90) m/uL Hgb (13.0-17.5) gm/dL Hct (39.0-53.0) % MCV (80.0-100.0) fL MCH (25.0-35.0) pg MCHC (31.0-37.0) g/dL RDW (11.5-15.5) % Plt Count (150-450) k/uL MPV Neutrophils % % Lymphocytes % % Monocytes % % Eosinophils % % Basophils % % Neutrophils # (1.3-7.7) k/uL Lymphocytes # (1.0-4.8) k/uL Monocytes # (0-1.0) k/uL Eosinophils # (0-0.7) k/uL Basophils # (0-0.2) k/uL PT (9.0-12.0) sec INR (<1.2) APTT (22.0-30.0) sec Sodium (137-145) mmol/L Potassium (3.5-5.1) mmol/L Chloride (98-107) mmol/L Carbon Dioxide (22-30) mmol/L Anion Gap mmol/L BUN (9-20) mg/dL Creatinine (0.66-1.25) mg/dL Est GFR (CKD-EPI)AfAm (>60 ml/min/1.73 sqM) Est GFR (CKD-EPI)NonAf (>60 ml/min/1.73 sqM) Glucose (74-99) mg/dL Plasma Lactic Acid German (0.7-2.0) mmol/L Calcium (8.4-10.2) mg/dL Magnesium (1.6-2.3) mg/dL Total Bilirubin (0.2-1.3) mg/dL AST (17-59) U/L ALT (4-49) U/L Alkaline Phosphatase (38-126) U/L Troponin I (0.000-0.034) ng/mL NT-Pro-B Natriuret Pep pg/mL Total Protein (6.3-8.2) g/dL Albumin (3.5-5.0) g/dL Coronavirus (PCR) Not Detected (Not Detectd) - Radiology Data Radiology results: image reviewed (Chest x-ray shows no acute process) Disposition Clinical Impression: COPD exacerbation Disposition: ADMITTED IP TO THIS HOSP Is patient prescribed a controlled substance at d/c from ED?: No Referrals: Taina Osman MD [Primary Care Provider] - 1-2 days Decision Time: 15:31
--- NOTE | 2020-08-27 14:35 | XR ---
EXAMINATION TYPE: XR chest 2V DATE OF EXAM: 08/27/2020 CLINICAL HISTORY: difficulty breathing. TECHNIQUE: Frontal and lateral view of the chest. COMPARISON: 07/15/2020 FINDINGS: The cardiomediastinal silhouette is within normal limits for size. Pulmonary vasculature i s normal. There is no focal air space opacity. No pleural effusion. No pneumothorax seen. No acute d isplaced osseous fracture. IMPRESSION: No acute cardiopulmonary process.
[2020-08-27 14:41] LABS: Basophils % (A) 1 %; Eosinophils # (A) 0.7 k/uL (0-0.7); Eosinophils % (A) 10 %; HCT 42.6 % (39.0-53.0); Lymphocytes # (A) 1.6 k/uL (1.0-4.8); Lymphocytes % (A) 23 %; MCH 30.6 pg (25.0-35.0); MCHC 32.8 g/dL (31.0-37.0); MCV 93.3 fL (80.0-100.0); Mean Platelet Volume 9.7; Monocytes # (A) 0.6 k/uL (0-1.0); Monocytes % (A) 9 %; Neutrophils # (A) 3.8 k/uL (1.3-7.7); Neutrophils % (A) 55 %; Platelet Count 274 k/uL (150-450); RBC 4.57 m/uL (4.30-5.90); RDW 13.6 % (11.5-15.5)
[2020-08-27 14:52] LABS: Prothrombin Time 10.3 sec (9.0-12.0)
[2020-08-27 14:54] LABS: Partial Thromboplastin Time 16.7 sec (22.0-30.0)
[2020-08-27 14:56] LABS: ALT 35 U/L (4-49); AST 37 U/L (17-59); African American GFR (CKD) >90 (>60 ml/min/1.73 sqM); Albumin 4.3 g/dL (3.5-5.0); Alkaline Phosphatase 35 U/L (38-126); Anion Gap 8 mmol/L; Blood Urea Nitrogen 14 mg/dL (9-20); Calcium 9.6 mg/dL (8.4-10.2); Carbon Dioxide 25 mmol/L (22-30); Chloride 105 mmol/L (98-107); Glucose 109 mg/dL (74-99); Magnesium 1.9 mg/dL (1.6-2.3); Non-African American GFR(CKD) >90 (>60 ml/min/1.73 sqM); Potassium 4.4 mmol/L (3.5-5.1); Sodium 138 mmol/L (137-145); Total Bilirubin 0.5 mg/dL (0.2-1.3)
[2020-08-27] MEDS ORDERED: methylPREDNISolone SOD SUCCI 125 MG/2 ML VIAL IV STA (15:32)
[2020-08-27] MEDS ORDERED: IPRATROPIUM-ALBUTEROL 3 ML NEB INHALATION SCH (16:00)
[2020-08-27] MEDS ORDERED: ALBUTEROL NEBULIZED 2.5 MG/3 ML INHALATION PRN (16:50)
[2020-08-27] MEDS ORDERED: FLUTICASONE 110 MCG INHALER INHALATION PRN (16:50)
[2020-08-27] MEDS ORDERED: ALBUTEROL HFA INHALER INHALATION PRN (16:50)
[2020-08-27] MEDS: methylPREDNISolone SOD SUCCI 125 MG/2 ML VIAL IV SCH (16:50)
[2020-08-27] MEDS: IPRATROPIUM-ALBUTEROL 3 ML NEB INHALATION SCH (19:40)
[2020-08-27] MEDS: MONTELUKAST 10 MG TAB PO SCH (20:40)
[2020-08-27] MEDS: BENZONATATE 100 MG CAP PO SCH (20:40)
[2020-08-27] MEDS: HYDROcodone/APAP 7.5-325MG 1 EACH TAB PO PRN (20:41)
[2020-08-27] MEDS: IPRATROPIUM-ALBUTEROL 3 ML NEB INHALATION PRN (23:50)
[2020-08-28] MEDS: methylPREDNISolone SOD SUCCI 125 MG/2 ML VIAL IV SCH ×4 (00:17→17:23)
[2020-08-28] MEDS: HYDROcodone/APAP 7.5-325MG 1 EACH TAB PO PRN ×2 (04:23→21:16)
[2020-08-28] MEDS: IPRATROPIUM-ALBUTEROL 3 ML NEB INHALATION PRN (04:40)
[2020-08-28] MEDS: IPRATROPIUM-ALBUTEROL 3 ML NEB INHALATION SCH ×4 (07:57→19:04)
[2020-08-28] MEDS: BENZONATATE 100 MG CAP PO SCH ×2 (08:35→21:17)
[2020-08-28] MEDS: ASCORBIC ACID 500 MG TAB PO SCH (08:35)
[2020-08-28] MEDS: amLODIPine 10 MG TAB PO SCH (08:35)
[2020-08-28] MEDS: PRAVASTATIN SODIUM 40 MG TAB PO SCH (08:35)
[2020-08-28] MEDS: LORATADINE 10 MG TAB PO SCH (08:35)
[2020-08-28] MEDS: FENOFIBRATE 160 MG TAB PO SCH (08:35)
[2020-08-28 10:21] LABS: Basophils # (A) 0.01 X 10*3/uL (0.00-0.10); Basophils % (A) 0.1 %; Eosinophils # (A) 0 X 10*3/uL (0.04-0.35); Eosinophils % (A) 0 %; HCT 38.7 % (39.6-50.0); Lymphocytes # (A) 0.48 X 10*3/uL (0.90-5.00); Lymphocytes % (A) 5.6 %; MCH 31.7 pg (27.0-32.0); MCHC 33.6 g/dL (32.0-37.0); MCV 94.4 fL (80.0-97.0); Mean Platelet Volume 11.3 fL (9.5-12.2); Monocytes # (A) 0.15 X 10*3/uL (0.20-1.00); Monocytes % (A) 1.7 %; Neutrophils # (A) 7.88 X 10*3/uL (1.80-7.70); Neutrophils % (A) 91.8 %; Platelet Count 237 X 10*3/uL (140-440); RDW 13.2 % (11.5-14.5); WBC 8.59 X 10*3/uL (4.50-10.00)
[2020-08-28 11:05] LABS: African American GFR (CKD) 115.7 (60.0-200.0); Albumin 4.4 g/dL (3.80-4.90); Albumin/Globulin Ratio 1.91 (1.60-3.17); Anion Gap 9.7 mmol/L (4.00-12.00); BUN/Creat Ratio 17.5 Ratio (12.00-20.00); Calcium 9.4 mg/dL (8.7-10.3); Carbon Dioxide 24.3 mmol/L (21.6-31.8); Globulin 2.3 g/dL (1.6-3.3); Non-African American GFR(CKD) 99.9 (60.0-200.0); Potassium 4.4 mmol/L (3.5-5.5); Total Bilirubin 0.5 mg/dL (0.2-1.2); Total Protein 6.7 g/dL (6.2-8.2)
--- NOTE | 2020-08-28 13:26 | P.CNPUL ---
History of Present Illness Consult date: 08/28/20 Requesting physician: Taina Osman Reason for consult: dyspnea, cough Chief complaint: Dyspnea, cough, wheezing History of present illness: 55-year-old white male patient of Dr. Osman with past medical history of COPD, chronic bronchial asthma, unspecified, former smoker, quit smoking 1 month ago, carries a [id number]-[id number] smoking history, hypertension, hyperlipidemia, who presented to the emergency department on 08/27/2020 with complaints of worsening shortness of breath, cough, wheezing, and producing yellow colored phlegm. He is reporting some mild leg edema which is somewhat chronic for him. Denies any history of CHF, no complaints of chest pain or hemoptysis. No fever or chills, he was tested multiple times and was negative for COVID-19, his COVId PCR was negative again in the emergency department. His chest x-ray showed no acute cardiopulmonary process. Admission blood work showed normal CBC, electrolyte and renal profile were unremarkable, troponin was less than 0.012, proBNP was 85. LFTs were within normal limits. Patient was started on IV steroids, breathing treatments, and this consult was initiated for acute exacerbation of COPD. Patient sees Dr. MICHA Ramírez for his pulmonary needs, and apparently he has been receiving injections for his chronic bronchial asthma. Patient states that he did not notice a big improvement in his asthma in response to the injections. 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 He does not know his FEV1, but he is not oxygen or prednisone dependent at baseline. He did have one prior COPD exacerbation about a month ago Review of Systems All systems: negative Constitutional: Denies chills, Denies fever Eyes: denies blurred vision, denies pain Ears, nose, mouth and throat: Denies headache, Denies sore throat Cardiovascular: Denies chest pain, Denies shortness of breath Respiratory: Reports dyspnea, Denies cough Gastrointestinal: Denies abdominal pain, Denies diarrhea, Denies nausea, Denies vomiting Musculoskeletal: Denies myalgias Integumentary: Denies pruritus, Denies rash Neurological: Denies numbness, Denies weakness Psychiatric: Denies anxiety, Denies depression Endocrine: Denies fatigue, Denies weight change Past Medical History Past Medical History: Asthma, COPD, Hyperlipidemia, Hypertension History of Any Multi-Drug Resistant Organisms: None Reported Past Surgical History: No Surgical Hx Reported Additional Past Surgical History / Comment(s): L arm Past Anesthesia/Blood Transfusion Reactions: No Reported Reaction Past Psychological History: Anxiety, Depression Smoking Status: Former smoker Past Alcohol Use History: Occasional Past Drug Use History: Marijuana - Past Family History Father Family Medical History: Asthma Medications and Allergies Home Medications Medication Instructions Recorded Confirmed Type Loratadine [Claritin] 10 mg PO DAILY 30 Days tab 09/29/19 08/27/20 Rx amLODIPine [Norvasc] 10 mg PO DAILY 30 Days tab 09/29/19 08/27/20 Rx Albuterol Nebulized [Ventolin 2.5 mg INHALATION RT-QID PRN 07/15/20 08/27/20 History Nebulized] Albuterol Sulfate [Proair Hfa] 2 puff INHALATION RT-Q6H PRN 07/15/20 08/27/20 History Ascorbic Acid [Vitamin C] 500 mg PO DAILY 07/15/20 08/27/20 History Fenofibrate Nanocrystallized 145 mg PO DAILY 07/15/20 08/27/20 History [Fenofibrate] Montelukast [Singulair] 10 mg PO HS 07/15/20 08/27/20 History Pravastatin Sodium [Pravachol] 40 mg PO DAILY 07/15/20 08/27/20 History Fluticasone Propionate [Flovent 1 puff INHALATION RT-BID PRN 08/27/20 08/27/20 History Hfa 110 mcg] Allergies Allergy/AdvReac Type Severity Reaction Status Date / Time Penicillins Allergy Rash/Hives Verified 08/27/20 14:29 cephalexin monohydrate AdvReac Nausea & Verified 08/27/20 14:29 [From Keflex] Vomiting ergocalciferol (vitamin D2) AdvReac WEAKNESS Verified 08/27/20 14:29 [From Vitamin D2] Physical Exam Vitals: Vital Signs Temp Pulse Pulse Pulse Resp BP BP 08/28/20 11:56 87 08/28/20 11:45 91 08/28/20 08:11 88 08/28/20 08:00 87 08/28/20 07:51 20 08/28/20 07:00 97.9 F 95 18 134/68 08/28/20 04:54 84 08/28/20 04:40 88 08/28/20 02:00 97.9 F 62 20 132/84 08/28/20 00:01 84 08/27/20 23:51 92 08/27/20 20:00 98.0 F 69 22 117/63 08/27/20 19:42 90 08/27/20 19:41 08/27/20 19:35 82 08/27/20 18:44 98.7 F 80 20 144/88 08/27/20 16:37 75 18 134/93 08/27/20 16:00 84 08/27/20 15:50 98.0 F 80 69 22 08/27/20 13:21 100.1 F H 88 18 142/67 Pulse Ox 08/28/20 11:56 08/28/20 11:45 08/28/20 08:11 08/28/20 08:00 93 L 08/28/20 07:51 08/28/20 07:00 96 08/28/20 04:54 08/28/20 04:40 08/28/20 02:00 93 L 08/28/20 00:01 08/27/20 23:51 08/27/20 20:00 93 L 08/27/20 19:42 08/27/20 19:41 95 08/27/20 19:35 08/27/20 18:44 97 08/27/20 16:37 96 08/27/20 16:00 08/27/20 15:50 98 08/27/20 13:21 97 Intake and Output 08/27/20 08/28/20 08/28/20 22:59 06:59 14:59 Other: Voiding Method Toilet # Voids 2 2 Weight 127.006 kg GENERAL EXAM: Alert, very pleasant, 55-year-old white male, on room air, with pulse ox of 93% comfortable in no apparent distress. HEAD: Normocephalic/atraumatic. EYES: Normal reaction of pupils, equal size. Conjunctiva pink, sclera white. NOSE: Clear with pink turbinates. THROAT: No erythema or exudates. NECK: No masses, no JVD, no thyroid enlargement, no adenopathy. CHEST: No chest wall deformity. Symmetrical expansion. LUNGS: Equal air entry with diffuse wheezes CVS: Regular rate and rhythm, normal S1 and S2, no gallops, no murmurs, no rubs ABDOMEN: Soft, nontender. No hepatosplenomegaly, normal bowel sounds, no guarding or rigidity. EXTREMITIES: No clubbing, no edema, no cyanosis, 2+ pulses and upper and lower extremities. MUSCULOSKELETAL: Muscle strength and tone normal. SPINE: No scoliosis or deformity SKIN: No rashes CENTRAL NERVOUS SYSTEM: Alert and oriented -3. No focal deficits, tone is normal in all 4 extremities. PSYCHIATRIC: Alert and oriented -3. Appropriate affect. Intact judgment and insight. Results - Laboratory Findings CBC and BMP: 08/28/20 05:59 08/28/20 05:59 PT/INR, D-dimer PT 10.3 sec (9.0-12.0) 08/27/20 14:28 INR 1.0 (<1.2) 08/27/20 14:28 Abnormal lab findings: Abnormal Labs 08/27/20 08/27/20 08/28/20 14:28 14:28 05:59 RBC 4.10 L Hct 38.7 L Immature Gran # 0.07 H Neutrophils # 7.88 H Lymphocytes # 0.48 L Monocytes # 0.15 L Eosinophils # 0 L APTT 16.7 L Glucose 109 H Alkaline Phosphatase 35 L 08/28/20 05:59 RBC Hct Immature Gran # Neutrophils # Lymphocytes # Monocytes # Eosinophils # APTT Glucose 160 H Alkaline Phosphatase 31 L - Diagnostic Findings Chest x-ray: report reviewed, image reviewed Assessment and Plan Plan: Assessment: #1. Acute exacerbation of COPD, patient tested negative for COVID-19, chest x- ray shows no acute cardiopulmonary process #2. History of chronic obstructive pulmonary disease, not oxygen or prednisone dependent at baseline, exact baseline FEV1 is not known at this time #3. Former smoker, in remission for one month, carries [id number] smoking history #4. Chronic bronchial asthma, unspecified #5. Hypertension #6. Hyperlipidemia #7. Morbid obesity #8. Anxiety Plan: Continue nebulized treatments Continue IV steroids We'll discontinue Flovent and we'll start the patient on Symbicort 164.5 mics inhaler twice daily We'll add doxycycline We'll continue to follow I performed a history & physical examination of the patient and discussed their management with my nurse practitioner, Cathy Lowe. I reviewed the nurse practitioner's note and agree with the documented findings and plan of care. Lung sounds are positive for diffuse wheezes throughout the lung rodriguez. The findings and the impression was discussed with the patient. I attest to the documentation by the nurse practitioner. Time with Patient: Greater than 30
[2020-08-28] MEDS: DOXYCYCLINE 100 MG CAP PO SCH ×2 (13:46→21:17)
[2020-08-28] MEDS: SYMBICORT 160-4.5 MCG INHALER INHALATION SCH (19:04)
--- NOTE | 2020-08-28 19:06 | P.HPIM ---
History of Present Illness H&P Date: 08/28/20 Denny Marin, is a 55-year-old male who presented to [facility] emergency room with a chief complaint of cough and shortness of breath, he was evaluated in the emergency room vital examination on presentation reveals a temperature of 100.1 pulse 88 respiration 18 blood pressure 142/67 pulse ox 97% on room air. Laboratory data revealed a white blood count of 7.0 hemoglobin 14.0 platelet count 274 BUN 14 creatinine 0.75 troponin level less than 0.012 BNP 85 Cordarone a virus PCR was negative. Lactic acid was 1.8, chest x-ray was done in the emergency room and revealed no active cardiopulmonary disease. EKG was done in the emergency room and revealed normal sinus rhythm normal EKG. Preliminary diagnosis was acute exacerbation of chronic obstructive pulmonary disease, acute purulent bronchitis, patient was started on IV steroids and IV antibiotics and inhaled bronchodilators and was admitted to medical floor pulmonary consultation was requested. Patient has a known history of COPD, he was admitted with similar symptoms about 2 months ago, he has a prolonged history of smoking and quit smoking 2 months ago. Past Medical History Past Medical History: Asthma, COPD, Hyperlipidemia, Hypertension History of Any Multi-Drug Resistant Organisms: None Reported Past Surgical History: No Surgical Hx Reported Additional Past Surgical History / Comment(s): L arm Past Anesthesia/Blood Transfusion Reactions: No Reported Reaction Past Psychological History: Anxiety, Depression Smoking Status: Former smoker Past Alcohol Use History: Occasional Past Drug Use History: Marijuana - Past Family History Father Family Medical History: Asthma Medications and Allergies Home Medications Medication Instructions Recorded Confirmed Type Loratadine [Claritin] 10 mg PO DAILY 30 Days tab 09/29/19 08/27/20 Rx amLODIPine [Norvasc] 10 mg PO DAILY 30 Days tab 09/29/19 08/27/20 Rx Albuterol Nebulized [Ventolin 2.5 mg INHALATION RT-QID PRN 07/15/20 08/27/20 History Nebulized] Albuterol Sulfate [Proair Hfa] 2 puff INHALATION RT-Q6H PRN 07/15/20 08/27/20 History Ascorbic Acid [Vitamin C] 500 mg PO DAILY 07/15/20 08/27/20 History Fenofibrate Nanocrystallized 145 mg PO DAILY 07/15/20 08/27/20 History [Fenofibrate] Montelukast [Singulair] 10 mg PO HS 07/15/20 08/27/20 History Pravastatin Sodium [Pravachol] 40 mg PO DAILY 07/15/20 08/27/20 History Fluticasone Propionate [Flovent 1 puff INHALATION RT-BID PRN 08/27/20 08/27/20 History Hfa 110 mcg] Allergies Allergy/AdvReac Type Severity Reaction Status Date / Time Penicillins Allergy Rash/Hives Verified 08/27/20 14:29 cephalexin monohydrate AdvReac Nausea & Verified 08/27/20 14:29 [From Keflex] Vomiting ergocalciferol (vitamin D2) AdvReac WEAKNESS Verified 08/27/20 14:29 [From Vitamin D2] Physical Exam Vitals: Vital Signs Temp Pulse Pulse Pulse Resp BP BP 08/28/20 04:54 84 08/28/20 04:40 88 08/28/20 02:00 97.9 F 62 20 132/84 08/28/20 00:01 84 08/27/20 23:51 92 08/27/20 20:00 98.0 F 69 22 117/63 08/27/20 19:42 90 08/27/20 19:41 08/27/20 19:35 82 08/27/20 18:44 98.7 F 80 20 144/88 08/27/20 16:37 75 18 134/93 08/27/20 16:00 84 08/27/20 15:50 98.0 F 80 69 22 08/27/20 13:21 100.1 F H 88 18 142/67 Pulse Ox 08/28/20 04:54 08/28/20 04:40 08/28/20 02:00 93 L 08/28/20 00:01 08/27/20 23:51 08/27/20 20:00 93 L 08/27/20 19:42 08/27/20 19:41 95 08/27/20 19:35 08/27/20 18:44 97 08/27/20 16:37 96 08/27/20 16:00 08/27/20 15:50 98 08/27/20 13:21 97 Intake and Output 08/27/20 08/28/20 08/28/20 22:59 06:59 14:59 Other: # Voids 2 2 Weight 127.006 kg In general patient is alert and oriented ?-3 in no distress HEENT head normocephalic and atraumatic Neck is supple no JVD no goiter no lymphadenopathy no carotid bruit Chest examination is clear to auscultation no crackles with significant wheezing Cardiac exam reveals regular heart sounds S1 and S2 no gallops no murmurs Abdomen is soft nontender no organomegaly with normal bowel sounds Extremity exam reveals no edema no cyanosis or clubbing Neurological examination reveals no gross focal deficits Results CBC & Chem 7: 08/28/20 05:59 08/28/20 05:59 Labs: Abnormal Lab Results - Last 24 Hours (Table) 08/27/20 08/27/20 Range/Units 14:28 14:28 APTT 16.7 L (22.0-30.0) sec Glucose 109 H (74-99) mg/dL Alkaline Phosphatase 35 L (38-126) U/L Thrombosis Risk Factor Assmnt - Choose All That Apply Any of the Below Risk Factors Present?: Yes Each Factor Represents 1 point: Abnormal pulmonary function (COPD), Swollen legs (current) Other Risk Factors: No Other congenital or acquired thrombophilia - If yes, enter type in comment: No Thrombosis Risk Factor Assessment Total Risk Factor Score: 2 Thrombosis Risk Factor Assessment Level: Low Risk Assessment and Plan Plan: Acute exacerbation of chronic obstructive pulmonary disease Acute purulent bronchitis, COVID-19 PCR testing was negative Chronic asthma Underlying history of hypertension Underlying history of hyperlipidemia Prolonged history of smoking patient quit last admission 2 months ago Underlying history of anxiety disorder At this time patient is admitted to medical floor he was started on IV steroids, oral antibiotics and inhaled bronchodilators and inhaled steroids He is improving gradually Home medications reviewed and reordered, for DVT prophylaxis Will add Lovenox 40 mg subcu daily Will follow closely
[2020-08-28] MEDS: MONTELUKAST 10 MG TAB PO SCH (21:17)
[2020-08-28] MEDS: ENOXAPARIN 40 MG/0.4 ML SYRINGE SQ SCH (21:18)
[2020-08-28 23:18] VITALS: RESP 18
[2020-08-29] MEDS: IPRATROPIUM-ALBUTEROL 3 ML NEB INHALATION PRN ×2 (00:12→03:29)
[2020-08-29] MEDS: methylPREDNISolone SOD SUCCI 125 MG/2 ML VIAL IV SCH ×4 (00:51→17:56)
[2020-08-29] MEDS: SYMBICORT 160-4.5 MCG INHALER INHALATION SCH ×2 (08:21→19:35)
[2020-08-29] MEDS: IPRATROPIUM-ALBUTEROL 3 ML NEB INHALATION SCH ×4 (08:21→19:35)
[2020-08-29] MEDS: FENOFIBRATE 160 MG TAB PO SCH (09:04)
[2020-08-29] MEDS: amLODIPine 10 MG TAB PO SCH (09:04)
[2020-08-29] MEDS: BENZONATATE 100 MG CAP PO SCH ×2 (09:04→20:37)
[2020-08-29] MEDS: ASCORBIC ACID 500 MG TAB PO SCH (09:04)
[2020-08-29] MEDS: LORATADINE 10 MG TAB PO SCH (09:04)
[2020-08-29] MEDS: DOXYCYCLINE 100 MG CAP PO SCH ×2 (09:24→20:36)
[2020-08-29] MEDS: PRAVASTATIN SODIUM 40 MG TAB PO SCH (09:24)
[2020-08-29] MEDS: ENOXAPARIN 40 MG/0.4 ML SYRINGE SQ SCH (09:26)
[2020-08-29 10:32] LABS: Basophils # (A) 0.01 X 10*3/uL (0.00-0.10); Basophils % (A) 0.1 %; Eosinophils # (A) 0 X 10*3/uL (0.04-0.35); Eosinophils % (A) 0 %; HCT 37.9 % (39.6-50.0); HGB 12.4 g/dL (13.0-17.0); Lymphocytes # (A) 0.52 X 10*3/uL (0.90-5.00); MCH 31.6 pg (27.0-32.0); MCHC 32.7 g/dL (32.0-37.0); MCV 96.7 fL (80.0-97.0); Mean Platelet Volume 11.4 fL (9.5-12.2); Monocytes # (A) 1.17 X 10*3/uL (0.20-1.00); Monocytes % (A) 6.8 %; Neutrophils # (A) 15.36 X 10*3/uL (1.80-7.70); Neutrophils % (A) 89.2 %; Platelet Count 238 X 10*3/uL (140-440); RBC 3.92 X 10*6/uL (4.40-5.60); RDW 13.5 % (11.5-14.5); WBC 17.22 X 10*3/uL (4.50-10.00)
[2020-08-29 10:50] LABS: African American GFR (CKD) 110.3 (60.0-200.0); Albumin 3.8 g/dL (3.80-4.90); Albumin/Globulin Ratio 1.73 (1.60-3.17); Anion Gap 10.9 mmol/L (4.00-12.00); BUN/Creat Ratio 22.22 Ratio (12.00-20.00); Calcium 8.9 mg/dL (8.7-10.3); Carbon Dioxide 24.1 mmol/L (21.6-31.8); Globulin 2.2 g/dL (1.6-3.3); Non-African American GFR(CKD) 95.1 (60.0-200.0); Potassium 4.4 mmol/L (3.5-5.5); Total Bilirubin 0.3 mg/dL (0.2-1.2)
--- NOTE | 2020-08-29 11:52 | P.PN ---
Subjective Progress Note Date: 08/29/20 Principal diagnosis: Shortness of breath, cough, wheezing 55-year-old white male patient of Dr. Osman with past medical history of COPD, chronic bronchial asthma, unspecified, former smoker, quit smoking 1 month ago, carries a 22-kvol-uvcu smoking history, hypertension, hyperlipidemia, who presented to the emergency department on 08/27/2020 with complaints of worsening shortness of breath, cough, wheezing, and producing yellow colored phlegm. He is reporting some mild leg edema which is somewhat chronic for him. Denies any history of CHF, no complaints of chest pain or hemoptysis. No fever or chills, he was tested multiple times and was negative for COVID-19, his COVId PCR was negative again in the emergency department. His chest x-ray showed no acute cardiopulmonary process. Admission blood work showed normal CBC, electrolyte and renal profile were unremarkable, troponin was less than 0.012, proBNP was 85. LFTs were within normal limits. Patient was started on IV steroids, breathing treatments, and this consult was initiated for acute exacerbation of COPD. Patient sees Dr. MICHA Ramírez for his pulmonary needs, and apparently he has been receiving injections for his chronic bronchial asthma. Patient states that he did not notice a big improvement in his asthma in response to the injections. 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 He does not know his FEV1, but he is not oxygen or prednisone dependent at baseline. He did have one prior COPD exacerbation about a month ago On 08/29/2020 patient seen in follow-up on medical surgical floor. He is feeling better, although he still coughing, and he is still bronchospastic, he is on room air and his pulse ox is 93%, his been afebrile, he is on IV Solu- Medrol, nebulized bronchodilators and doxycycline for empiric antibiotic coverage. He reports no acute events overnight. Today's labs have been noted, his white blood cell count increased to 17.2 and today's labs, hemoglobin is 12. 4, electrolytes and renal profile are unremarkable. Objective - Vital Signs Vital signs: Vital Signs Temp 97.8 F 08/29/20 07:00 Pulse 86 08/29/20 08:32 Resp 18 08/29/20 07:00 BP 142/63 08/29/20 07:00 Pulse Ox 93 L 08/29/20 07:00 Intake & Output 08/28/20 08/29/20 08/29/20 18:59 06:59 18:59 Other: Voiding Method Toilet Toilet Toilet # Voids 2 1 # Bowel Movements 1 - Exam GENERAL EXAM: Alert, very pleasant, 55-year-old white male, on room air, with pulse ox of 93% comfortable in no apparent distress. HEAD: Normocephalic/atraumatic. EYES: Normal reaction of pupils, equal size. Conjunctiva pink, sclera white. NOSE: Clear with pink turbinates. THROAT: No erythema or exudates. NECK: No masses, no JVD, no thyroid enlargement, no adenopathy. CHEST: No chest wall deformity. Symmetrical expansion. LUNGS: Equal air entry with diffuse wheezes CVS: Regular rate and rhythm, normal S1 and S2, no gallops, no murmurs, no rubs ABDOMEN: Soft, nontender. No hepatosplenomegaly, normal bowel sounds, no guarding or rigidity. EXTREMITIES: No clubbing, no edema, no cyanosis, 2+ pulses and upper and lower extremities. MUSCULOSKELETAL: Muscle strength and tone normal. SPINE: No scoliosis or deformity SKIN: No rashes CENTRAL NERVOUS SYSTEM: Alert and oriented -3. No focal deficits, tone is normal in all 4 extremities. PSYCHIATRIC: Alert and oriented -3. Appropriate affect. Intact judgment and insight. - Labs CBC & Chem 7: 08/29/20 05:15 08/29/20 05:15 Labs: Abnormal Lab Results - Last 24 Hours (Table) 08/29/20 08/29/20 Range/Units 05:15 05:15 WBC 17.22 H (4.50-10.00) X 10*3/uL RBC 3.92 L (4.40-5.60) X 10*6/uL Hgb 12.4 L (13.0-17.0) g/dL Hct 37.9 L (39.6-50.0) % Immature Gran # 0.16 H (0.00-0.04) X 10*3/uL Neutrophils # 15.36 H (1.80-7.70) X 10*3/uL Lymphocytes # 0.52 L (0.90-5.00) X 10*3/uL Monocytes # 1.17 H (0.20-1.00) X 10*3/uL Eosinophils # 0 L (0.04-0.35) X 10*3/uL BUN/Creatinine Ratio 22.22 H (12.00-20.00) Ratio Glucose 161 H (70-110) mg/dL Alkaline Phosphatase 30 L (41-126) U/L Total Protein 6.0 L (6.2-8.2) g/dL Microbiology - Last 24 Hours (Table) 08/28/20 Unknown Gram Stain - Preliminary Sputum Sputum Culture - Preliminary 08/27/20 14:05 Blood Culture - Preliminary Blood No Growth after 24 hours 08/27/20 14:28 Blood Culture - Preliminary Blood No Growth after 24 hours Assessment and Plan Plan: Assessment: #1. Acute exacerbation of COPD, patient tested negative for COVID-19, chest x- ray shows no acute cardiopulmonary process #2. History of chronic obstructive pulmonary disease, not oxygen or prednisone dependent at baseline, exact baseline FEV1 is not known at this time #3. Former smoker, in remission for one month, carries [id number] smoking history #4. Chronic bronchial asthma, unspecified #5. Hypertension #6. Hyperlipidemia #7. Morbid obesity #8. Anxiety Plan: Continue nebulized treatments Continue IV steroids We'll discontinue Flovent and we'll start the patient on Symbicort 164.5 mics inhaler twice daily Continue antibiotics Patient is improving, but will benefit from another 24 hour inpatient treatment Anticipate discharge home tomorrow Follow-up with Dr. Stoddard in the office in 7-10 days, patient can finish outpatient course of doxycycline for a total of 10 days and 16 day taper of prednisone. I performed a history & physical examination of the patient and discussed their management with my nurse practitioner, Cathy Lowe. I reviewed the nurse practitioner's note and agree with the documented findings and plan of care. Lung sounds are positive for diffuse wheezes throughout the lung rodriguez. The findings and the impression was discussed with the patient. I attest to the documentation by the nurse practitioner. Time with Patient: Less than 30
--- NOTE | 2020-08-29 12:09 | P.PN ---
Subjective Progress Note Date: 08/29/20 Denny Marin, is a 55-year-old male who presented to [facility] emergency room with a chief complaint of cough and shortness of breath, he was evaluated in the emergency room vital examination on presentation reveals a temperature of 100.1 pulse 88 respiration 18 blood pressure 142/67 pulse ox 97% on room air. Laboratory data revealed a white blood count of 7.0 hemoglobin 14.0 platelet count 274 BUN 14 creatinine 0.75 troponin level less than 0.012 BNP 85 Cordarone a virus PCR was negative. Lactic acid was 1.8, chest x-ray was done in the emergency room and revealed no active cardiopulmonary disease. EKG was done in the emergency room and revealed normal sinus rhythm normal EKG. Preliminary diagnosis was acute exacerbation of chronic obstructive pulmonary disease, acute purulent bronchitis, patient was started on IV steroids and IV antibiotics and inhaled bronchodilators and was admitted to medical floor pulmonary consultation was requested. Patient has a known history of COPD, he was admitted with similar symptoms about 2 months ago, he has a prolonged history of smoking and quit smoking 2 months ago. On 08/29/2020 patient's alert and oriented 3. Patient reports improvement with wheezing. Discussed case with pulmonary team continue current medication and possible discharge home in the next 24-48 hours. Patient was able to give sputum sample. Patient with some wheezing noted to auscultation. Patient remains on IV steroids and doxycycline. Patient denies chest pain. Patient denies nausea vomiting or diarrhea. Patient denies any urinary burning or f requency Objective - Vital Signs Vital signs: Vital Signs Temp 97.8 F 08/29/20 07:00 Pulse 84 08/29/20 12:04 Resp 18 08/29/20 07:00 BP 142/63 08/29/20 07:00 Pulse Ox 93 L 08/29/20 07:00 Intake & Output 08/28/20 08/29/20 08/29/20 18:59 06:59 18:59 Other: Voiding Method Toilet Toilet Toilet # Voids 2 1 # Bowel Movements 1 - Exam In general patient is alert and oriented ?-3 in no distress HEENT head normocephalic and atraumatic Neck is supple no JVD no goiter no lymphadenopathy no carotid bruit Chest examination is clear to auscultation no crackles with significant wheezing Cardiac exam reveals regular heart sounds S1 and S2 no gallops no murmurs Abdomen is soft nontender no organomegaly with normal bowel sounds Extremity exam reveals no edema no cyanosis or clubbing Neurological examination reveals no gross focal deficits - Labs CBC & Chem 7: 08/29/20 05:15 08/29/20 05:15 Labs: Abnormal Lab Results - Last 24 Hours (Table) 08/29/20 08/29/20 Range/Units 05:15 05:15 WBC 17.22 H (4.50-10.00) X 10*3/uL RBC 3.92 L (4.40-5.60) X 10*6/uL Hgb 12.4 L (13.0-17.0) g/dL Hct 37.9 L (39.6-50.0) % Immature Gran # 0.16 H (0.00-0.04) X 10*3/uL Neutrophils # 15.36 H (1.80-7.70) X 10*3/uL Lymphocytes # 0.52 L (0.90-5.00) X 10*3/uL Monocytes # 1.17 H (0.20-1.00) X 10*3/uL Eosinophils # 0 L (0.04-0.35) X 10*3/uL BUN/Creatinine Ratio 22.22 H (12.00-20.00) Ratio Glucose 161 H (70-110) mg/dL Alkaline Phosphatase 30 L (41-126) U/L Total Protein 6.0 L (6.2-8.2) g/dL Microbiology - Last 24 Hours (Table) 08/28/20 Unknown Gram Stain - Preliminary Sputum Sputum Culture - Preliminary 08/27/20 14:05 Blood Culture - Preliminary Blood No Growth after 24 hours 08/27/20 14:28 Blood Culture - Preliminary Blood No Growth after 24 hours Assessment and Plan Plan: Acute exacerbation of chronic obstructive pulmonary disease Acute purulent bronchitis, COVID-19 PCR testing was negative Chronic asthma Underlying history of hypertension Underlying history of hyperlipidemia Prolonged history of smoking patient quit last admission 2 months ago Underlying history of anxiety disorder At this time patient is admitted to medical floor he was started on IV steroids, oral antibiotics and inhaled bronchodilators and inhaled steroids He is improving gradually DVT prophylaxis Lovenox Anticipate discharge in the next 24-48 hours
--- NOTE | 2020-08-29 17:21 | P.HPADDEND ---
H&P Addendum H&P Addendum Date: 08/29/20 Patient is still Having shortness of breath cough and wheezing Note from pulmonary state that patient would benefit of another 24 hour of treatment, anticipate discharge tomorrow Order for admission to inpatient placed I spoke was up to physician at [phone] and told him this information
[2020-08-29] MEDS: MONTELUKAST 10 MG TAB PO SCH (20:36)
[2020-08-29] MEDS: HYDROcodone/APAP 7.5-325MG 1 EACH TAB PO PRN (20:37)
[2020-08-30] MEDS: methylPREDNISolone SOD SUCCI 125 MG/2 ML VIAL IV SCH ×2 (02:52→05:43)
[2020-08-30 06:28] LABS: ALT 30 U/L (4-49); AST 29 U/L (17-59); African American GFR (CKD) >90 (>60 ml/min/1.73 sqM); Albumin 3.7 g/dL (3.5-5.0); Albumin/Globulin Ratio 1.5; Alkaline Phosphatase 41 U/L (38-126); Anion Gap 6 mmol/L; Blood Urea Nitrogen 22 mg/dL (9-20); Calcium 9.2 mg/dL (8.4-10.2); Carbon Dioxide 28 mmol/L (22-30); Chloride 105 mmol/L (98-107); Globulin 2.5 g/dL; Glucose 132 mg/dL (74-99); Non-African American GFR(CKD) >90 (>60 ml/min/1.73 sqM); Potassium 4.2 mmol/L (3.5-5.1); Sodium 139 mmol/L (137-145); Total Bilirubin 0.2 mg/dL (0.2-1.3); Total Protein 6.2 g/dL (6.3-8.2)
[2020-08-30] MEDS: IPRATROPIUM-ALBUTEROL 3 ML NEB INHALATION SCH ×2 (07:39→11:35)
[2020-08-30] MEDS: SYMBICORT 160-4.5 MCG INHALER INHALATION SCH (07:40)
[2020-08-30 07:41] VITALS: BP 134/76; TEMP 97.7
[2020-08-30] MEDS: LORATADINE 10 MG TAB PO SCH (08:44)
[2020-08-30] MEDS: BENZONATATE 100 MG CAP PO SCH (08:44)
[2020-08-30] MEDS: ASCORBIC ACID 500 MG TAB PO SCH (08:44)
[2020-08-30] MEDS: FENOFIBRATE 160 MG TAB PO SCH (08:44)
[2020-08-30] MEDS: DOXYCYCLINE 100 MG CAP PO SCH (08:44)
[2020-08-30] MEDS: amLODIPine 10 MG TAB PO SCH (08:44)
[2020-08-30] MEDS: PRAVASTATIN SODIUM 40 MG TAB PO SCH (08:45)
[2020-08-30] MEDS: ENOXAPARIN 40 MG/0.4 ML SYRINGE SQ SCH (08:45)
[2020-08-30 09:36] LABS: Basophils # (A) 0.02 X 10*3/uL (0.00-0.10); Basophils % (A) 0.1 %; Eosinophils # (A) 0 X 10*3/uL (0.04-0.35); Eosinophils % (A) 0 %; HGB 12.6 g/dL (13.0-17.0); Lymphocytes # (A) 0.53 X 10*3/uL (0.90-5.00); Lymphocytes % (A) 3.4 %; MCH 32.1 pg (27.0-32.0); MCHC 33.2 g/dL (32.0-37.0); MCV 96.9 fL (80.0-97.0); Mean Platelet Volume 11.5 fL (9.5-12.2); Monocytes # (A) 1.22 X 10*3/uL (0.20-1.00); Monocytes % (A) 7.8 %; Neutrophils # (A) 13.65 X 10*3/uL (1.80-7.70); Neutrophils % (A) 87.5 %; Platelet Count 242 X 10*3/uL (140-440); RBC 3.92 X 10*6/uL (4.40-5.60); RDW 13.6 % (11.5-14.5); WBC 15.61 X 10*3/uL (4.50-10.00)
[2020-08-30 11:37] VITALS: PULSE 78
--- NOTE | 2020-08-30 12:39 | P.PN ---
Subjective Progress Note Date: 08/30/20 Principal diagnosis: Shortness of breath, cough, wheezing 55-year-old white male patient of Dr. Osman with past medical history of COPD, chronic bronchial asthma, unspecified, former smoker, quit smoking 1 month ago, carries a [id number] smoking history, hypertension, hyperlipidemia, who presented to the emergency department on 08/27/2020 with complaints of worsening shortness of breath, cough, wheezing, and producing yellow colored phlegm. He is reporting some mild leg edema which is somewhat chronic for him. Denies any history of CHF, no complaints of chest pain or hemoptysis. No fever or chills, he was tested multiple times and was negative for COVID-19, his COVId PCR was negative again in the emergency department. His chest x-ray showed no acute cardiopulmonary process. Admission blood work showed normal CBC, electrolyte and renal profile were unremarkable, troponin was less than 0.012, proBNP was 85. LFTs were within normal limits. Patient was started on IV steroids, breathing treatments, and this consult was initiated for acute exacerbation of COPD. Patient sees Dr. MICHA Ramírez for his pulmonary needs, and apparently he has been receiving injections for his chronic bronchial asthma. Patient states that he did not notice a big improvement in his asthma in response to the injections. He states he wants to look for a new glass cleaner. He does not know his FEV1, but he is not oxygen or prednisone dependent at baseline. He did have one prior COPD exacerbation about a month ago On 08/29/2020 patient seen in follow-up on medical surgical floor. He is feeling better, although he still coughing, and he is still bronchospastic, he is on room air and his pulse ox is 93%, his been afebrile, he is on IV Solu- Medrol, nebulized bronchodilators and doxycycline for empiric antibiotic coverage. He reports no acute events overnight. Today's labs have been noted, his white blood cell count increased to 17.2 and today's labs, hemoglobin is 12. 4, electrolytes and renal profile are unremarkable. On 08/30/2020 patient seen in follow-up on medical surgical floor, he is feeling much better, breathing much easier, less dyspneic and bronchospastic, he is on room air pulse ox of 100%. No fever or chills, signs have been stable, no acute events overnight. Today's labs have been reviewed, we will blood cell count is slightly improved and is down to 15.6, electrolytes and renal profile are unremarkable. Patient has been treated with IV steroids, empiric antibiotics, and nebulized bronchodilators, improved, he is being discharged home today. Objective - Vital Signs Vital signs: Vital Signs Temp 97.7 F 08/30/20 07:00 Pulse 78 08/30/20 11:35 Resp 18 08/30/20 07:00 BP 134/76 08/30/20 07:00 Pulse Ox 100 08/30/20 07:00 Intake & Output 08/29/20 08/30/20 08/30/20 18:59 06:59 18:59 Intake Total 500 Balance 500 Intake: Oral 500 Other: Voiding Method Toilet Toilet # Voids 2 - Exam GENERAL EXAM: Alert, very pleasant, 55-year-old white male, on room air, with pulse ox of 100% comfortable in no apparent distress. HEAD: Normocephalic/atraumatic. EYES: Normal reaction of pupils, equal size. Conjunctiva pink, sclera white. NOSE: Clear with pink turbinates. THROAT: No erythema or exudates. NECK: No masses, no JVD, no thyroid enlargement, no adenopathy. CHEST: No chest wall deformity. Symmetrical expansion. LUNGS: Equal air entry with diffuse wheezes CVS: Regular rate and rhythm, normal S1 and S2, no gallops, no murmurs, no rubs ABDOMEN: Soft, nontender. No hepatosplenomegaly, normal bowel sounds, no guarding or rigidity. EXTREMITIES: No clubbing, no edema, no cyanosis, 2+ pulses and upper and lower extremities. MUSCULOSKELETAL: Muscle strength and tone normal. SPINE: No scoliosis or deformity SKIN: No rashes CENTRAL NERVOUS SYSTEM: Alert and oriented -3. No focal deficits, tone is normal in all 4 extremities. PSYCHIATRIC: Alert and oriented -3. Appropriate affect. Intact judgment and insight. - Labs CBC & Chem 7: 08/30/20 05:51 08/30/20 05:51 Labs: Abnormal Lab Results - Last 24 Hours (Table) 08/30/20 08/30/20 Range/Units 05:51 05:51 WBC 15.61 H (4.50-10.00) X 10*3/uL RBC 3.92 L (4.40-5.60) X 10*6/uL Hgb 12.6 L (13.0-17.0) g/dL Hct 38.0 L (39.6-50.0) % MCH 32.1 H (27.0-32.0) pg Immature Gran # 0.19 H (0.00-0.04) X 10*3/uL Neutrophils # 13.65 H (1.80-7.70) X 10*3/uL Lymphocytes # 0.53 L (0.90-5.00) X 10*3/uL Monocytes # 1.22 H (0.20-1.00) X 10*3/uL Eosinophils # 0 L (0.04-0.35) X 10*3/uL BUN 22 H (9-20) mg/dL Glucose 132 H (74-99) mg/dL Total Protein 6.2 L (6.3-8.2) g/dL Microbiology - Last 24 Hours (Table) 08/27/20 14:05 Blood Culture - Preliminary Blood No Growth after 48 hours 08/27/20 14:28 Blood Culture - Preliminary Blood No Growth after 48 hours Assessment and Plan Plan: Assessment: #1. Acute exacerbation of COPD, patient tested negative for COVID-19, chest x- ray shows no acute cardiopulmonary process #2. History of chronic obstructive pulmonary disease, not oxygen or prednisone dependent at baseline, exact baseline FEV1 is not known at this time #3. Former smoker, in remission for one month, carries [id number] smoking history #4. Chronic bronchial asthma, unspecified #5. Hypertension #6. Hyperlipidemia #7. Morbid obesity #8. Anxiety Plan: Patient is improving less bronchospastic, less dyspneic Vital signs are stable Stable for discharge home today Follow-up with Dr. Stoddard in the office in 7-10 days, patient can finish outpatient course of doxycycline for a total of 10 days and 16 day taper of prednisone. I performed a history & physical examination of the patient and discussed their management with my nurse practitioner, Cathy Lowe. I reviewed the nurse practitioner's note and agree with the documented findings and plan of care. Karolina ng sounds are positive for diffuse wheezes throughout the lung rodriguez. The findings and the impression was discussed with the patient. I attest to the documentation by the nurse practitioner. Time with Patient: Less than 30
[2020-08-31] MEDS ORDERED: predniSONE 20 MG TAB PO SCH (09:00)
== END 2020-08-30 15:10 | disposition home or self-care (01) ==
LOC: EC 13:10 → 6NMEDSUR 15:39 → OBSVTOIN 08-29 17:15 → INTOOBSV 08-29 17:15 → UNDODISIN 08-30 15:10
PROVIDERS: ADMIT Internal Medicine; ATTEND Internal Medicine
DX: J44.0 Chronic obstructive pulmonary disease with (acute) lower respiratory infection (principal); J44.1 Chronic obstructive pulmonary disease with (acute) exacerbation; J20.9 Acute bronchitis, unspecified; I10 Essential (primary) hypertension; E78.5 Hyperlipidemia, unspecified; F41.9 Anxiety disorder, unspecified; F32.9 Major depressive disorder, single episode, unspecified; R60.0 Localized edema; E66.01 Morbid (severe) obesity due to excess calories; Z68.41 Body mass index [BMI] 40.0-44.9, adult; M79.89 Other specified soft tissue disorders; Z79.899 Other long term (current) drug therapy; Z20.822 Contact with and (suspected) exposure to COVID-19; Z87.891 Personal history of nicotine dependence; Z88.1 Allergy status to other antibiotic agents; Z88.0 Allergy status to penicillin; Z88.8 Allergy status to other drugs, medicaments and biological substances; Z82.5 Family history of asthma and other chronic lower respiratory diseases
CPT/HCPCS: 96376 ×3; 96374; 99285; 36415; 94640 ×7; 94760 ×2; 93005; 83880; 80053 ×4; 83605; 83735; 84484; 85025 ×4; 85610; 85730; 87040; 87070; 87205; 87635; 71046; G0378 ×4; J2930 ×4

== ENCOUNTER 2020-11-29 13:54 | Emergency (ER) | payer OTHER ==
[2020-11-29 15:01] VITALS: RESP 18
--- NOTE | 2020-11-29 15:09 | ED ---
Psych HPI - General Chief Complaint: Psychiatric Symptoms Stated Complaint: Mental Health Time Seen by Provider: 11/29/20 14:59 Source: patient, EMS Mode of arrival: EMS - History of Present Illness Initial Comments: 55-year-old male with history of depression and anxiety presents to emergency department for psychiatric evaluation. Patient reports she has been having difficulties with his roommate and states that he has "given up". Reports thoughts of suicide but denies any plans. States that his current living situation is "screwed up". States she stopped seeing a therapist and his psychiatric medications earlier this summer. Cannot recall the exact medications that he was taking. Denies any further complaints. - Related Data Home Medications Medication Instructions Recorded Confirmed Albuterol Nebulized [Ventolin 2.5 mg INHALATION RT-QID PRN 07/15/20 11/29/20 Nebulized] Albuterol Sulfate [Proair Hfa] 2 puff INHALATION RT-Q6H PRN 07/15/20 11/29/20 Fenofibrate Nanocrystallized 145 mg PO DAILY 07/15/20 11/29/20 [Fenofibrate] Montelukast [Singulair] 10 mg PO HS 07/15/20 11/29/20 Pravastatin Sodium [Pravachol] 40 mg PO DAILY 07/15/20 11/29/20 Escitalopram [Lexapro] 10 mg PO DAILY 11/29/20 11/29/20 Fluticasone Propionate [Flovent 2 puff INHALATION RT-BID 11/29/20 11/29/20 Hfa 110 mcg] traZODone HCL [Desyrel] 50 mg PO HS 11/29/20 11/29/20 Previous Rx's Medication Instructions Recorded Loratadine [Claritin] 10 mg PO DAILY 30 Days tab 09/29/19 amLODIPine [Norvasc] 10 mg PO DAILY 30 Days tab 09/29/19 Allergies Allergy/AdvReac Type Severity Reaction Status Date / Time Penicillins Allergy Rash/Hives Verified 11/29/20 16:10 cephalexin monohydrate AdvReac Nausea & Verified 11/29/20 16:10 [From Keflex] Vomiting ergocalciferol (vitamin D2) AdvReac WEAKNESS Verified 11/29/20 16:10 [From Vitamin D2] Review of Systems ROS Statement: Those systems with pertinent positive or pertinent negative responses have been documented in the HPI. ROS Other: All systems not noted in ROS Statement are negative. Past Medical History Past Medical History: Asthma, COPD, Hyperlipidemia, Hypertension History of Any Multi-Drug Resistant Organisms: None Reported Past Surgical History: No Surgical Hx Reported Additional Past Surgical History / Comment(s): L arm Past Anesthesia/Blood Transfusion Reactions: No Reported Reaction Past Psychological History: Anxiety, Depression Smoking Status: Former smoker Past Alcohol Use History: Occasional Past Drug Use History: Marijuana - Past Family History Father Family Medical History: Asthma General Exam Limitations: no limitations General appearance: alert, in no apparent distress, obese Head exam: Present: atraumatic, normocephalic, normal inspection Eye exam: Present: normal appearance Pupils: Present: normal accommodation ENT exam: Present: normal exam, normal oropharynx, mucous membranes moist Neck exam: Present: normal inspection, full ROM. Absent: tenderness, lymphadenopathy Respiratory exam: Present: normal lung sounds bilaterally. Absent: respiratory distress Cardiovascular Exam: Present: regular rate, normal rhythm, normal heart sounds. Absent: systolic murmur Extremities exam: Present: normal inspection, full ROM Back exam: Present: normal inspection, full ROM Neurological exam: Present: alert, oriented X3 Psychiatric exam: Present: normal affect, depressed, suicidal ideation Skin exam: Present: warm, dry, intact, normal color Course Vital Signs 11/29/20 11/29/20 14:56 18:40 Temperature 98.3 F 98.0 F Pulse Rate 80 72 Respiratory 18 18 Rate Blood Pressure 134/73 134/83 O2 Sat by Pulse 97 97 Oximetry Medical Decision Making - Medical Decision Making 55-year-old male presenting to emergency department for psychiatric evaluation. On physical examination, patient did have thoughts of suicide but no plans. No homicidal thoughts. Urine ejection positive for marijuana. EPS evaluated patient and they recommended outpatient follow-up. Safety plan in place. Return parameters thoroughly discussed the patient is understanding and agreeable. - Lab Data Lab Results 11/29/20 Range/Units 16:04 Urine Opiates Screen Not Detected (NotDetected) Ur Oxycodone Screen Not Detected (NotDetected) Urine Methadone Screen Not Detected (NotDetected) Ur Propoxyphene Screen Not Detected (NotDetected) Ur Barbiturates Screen Not Detected (NotDetected) U Tricyclic Antidepress Not Detected (NotDetected) Ur Phencyclidine Scrn Not Detected (NotDetected) Ur Amphetamines Screen Not Detected (NotDetected) U Methamphetamines Scrn Not Detected (NotDetected) U Benzodiazepines Scrn Not Detected (NotDetected) Urine Cocaine Screen Not Detected (NotDetected) U Marijuana (THC) Screen Detected H (NotDetected) Disposition Clinical Impression: Acute anxiety Disposition: HOME SELF-CARE Condition: Stable Instructions (If sedation given, give patient instructions): Anxiety (ED) Additional Instructions: Please return to the Emergency Department if symptoms worsen or any other concerns. Is patient prescribed a controlled substance at d/c from ED?: No Referrals: Taina Osman MD [Primary Care Provider] - 1-2 days Time of Disposition: 22:05
[2020-11-29 16:33] LABS: Amphetamine Screen,Urine Not Detected (NotDetected); Barbiturate Screen,Urine Not Detected (NotDetected); Benzodiazepines Screen,Urine Not Detected (NotDetected); Cocaine Screen,Urine Not Detected (NotDetected); Methadone Screen, Urine Not Detected (NotDetected); Opiate Screen,Urine Not Detected (NotDetected); Oxycodone Screen, Urine Not Detected (NotDetected); Phencyclidine Screen,Urine Not Detected (NotDetected); Tricyclic Antidepressant,Urine Not Detected (NotDetected); Urn Cannabinoid Scrn Detected (NotDetected)
[2020-11-29 19:02] VITALS: BP 134/83; PULSE 72; TEMP 98
== END 2020-11-29 22:10 | disposition home or self-care (01) ==
LOC: EC 13:54
DX: F41.9 Anxiety disorder, unspecified (principal); R45.851 Suicidal ideations; F32.9 Major depressive disorder, single episode, unspecified; I10 Essential (primary) hypertension; E78.5 Hyperlipidemia, unspecified; J44.9 Chronic obstructive pulmonary disease, unspecified; F12.90 Cannabis use, unspecified, uncomplicated; Z87.891 Personal history of nicotine dependence; Z79.51 Long term (current) use of inhaled steroids; Z79.899 Other long term (current) drug therapy; Z88.0 Allergy status to penicillin; Z88.1 Allergy status to other antibiotic agents
CPT/HCPCS: 80306; 82075; 99285

== ENCOUNTER 2020-12-07 14:59 | Emergency (ER) | payer OTHER ==
[2020-12-07 15:12] VITALS: RESP 18
[2020-12-07 15:51] LABS: Amphetamine Screen,Urine Not Detected (NotDetected); Barbiturate Screen,Urine Not Detected (NotDetected); Benzodiazepines Screen,Urine Not Detected (NotDetected); Cocaine Screen,Urine Not Detected (NotDetected); Methadone Screen, Urine Not Detected (NotDetected); Opiate Screen,Urine Not Detected (NotDetected); Oxycodone Screen, Urine Not Detected (NotDetected); Phencyclidine Screen,Urine Not Detected (NotDetected); Tricyclic Antidepressant,Urine Not Detected (NotDetected); Urn Cannabinoid Scrn Not Detected (NotDetected)
[2020-12-07] MEDS ORDERED: LIDOCAINE 4% CREAM 5 GM TUBE TOPICAL ONE (17:15)
--- NOTE | 2020-12-07 17:29 | ED ---
Psych HPI - General Chief Complaint: Psychiatric Symptoms Stated Complaint: Mental Health Time Seen by Provider: 12/07/20 15:08 Source: patient, EMS, RN notes reviewed Mode of arrival: EMS Limitations: no limitations - History of Present Illness Initial Comments: 55-year-old male presents emergency Department with chief complaint of needing psychiatric help. Patient states he is depressed, feeling hopeless not wanting to take his medications because he just doesn't feel like he needs to. Patient does (of psychiatric medications, medications for his asthma/COPD. Patient reports no fevers or chills denies illicit drug use no alcohol abuse. Patient's had parenteral Department so. Patient denies any homicidal ideations. He does complain of rectal pain in which she's been suffering with a hemorrhoid - Related Data Home Medications Medication Instructions Recorded Confirmed Albuterol Nebulized [Ventolin 2.5 mg INHALATION RT-QID PRN 07/15/20 12/07/20 Nebulized] Albuterol Sulfate [Proair Hfa] 2 puff INHALATION RT-Q6H PRN 07/15/20 12/07/20 Fenofibrate Nanocrystallized 145 mg PO DAILY 07/15/20 12/07/20 [Fenofibrate] Montelukast [Singulair] 10 mg PO HS 07/15/20 12/07/20 Pravastatin Sodium [Pravachol] 40 mg PO DAILY 07/15/20 12/07/20 Escitalopram [Lexapro] 10 mg PO DAILY 11/29/20 12/07/20 Fluticasone Propionate [Flovent 2 puff INHALATION RT-BID 11/29/20 12/07/20 Hfa 110 mcg] traZODone HCL [Desyrel] 50 mg PO HS 11/29/20 12/07/20 Previous Rx's Medication Instructions Recorded Loratadine [Claritin] 10 mg PO DAILY 30 Days tab 09/29/19 amLODIPine [Norvasc] 10 mg PO DAILY 30 Days tab 09/29/19 Hydrocortisone [Anusol-Hc] 1 applic RECTAL BID #30 gm 12/07/20 Allergies Allergy/AdvReac Type Severity Reaction Status Date / Time Penicillins Allergy Rash/Hives Verified 12/07/20 16:59 cephalexin monohydrate AdvReac Nausea & Verified 12/07/20 16:59 [From Keflex] Vomiting ergocalciferol (vitamin D2) AdvReac WEAKNESS Verified 12/07/20 16:59 [From Vitamin D2] Review of Systems ROS Statement: Those systems with pertinent positive or pertinent negative responses have been documented in the HPI. ROS Other: All systems not noted in ROS Statement are negative. Past Medical History Past Medical History: Asthma, COPD, Hyperlipidemia, Hypertension History of Any Multi-Drug Resistant Organisms: None Reported Past Surgical History: No Surgical Hx Reported Additional Past Surgical History / Comment(s): L arm Past Anesthesia/Blood Transfusion Reactions: No Reported Reaction Past Psychological History: Anxiety, Depression Smoking Status: Current every day smoker Past Alcohol Use History: Occasional Past Drug Use History: Marijuana - Past Family History Father Family Medical History: Asthma General Exam Limitations: no limitations General appearance: alert, in no apparent distress Eye exam: Present: normal appearance, PERRL, EOMI. Absent: scleral icterus, conjunctival injection, periorbital swelling ENT exam: Present: normal exam, mucous membranes moist Neck exam: Present: normal inspection. Absent: tenderness, meningismus, lymphadenopathy Respiratory exam: Present: wheezes. Absent: normal lung sounds bilaterally, respiratory distress, rales, rhonchi, stridor Cardiovascular Exam: Present: regular rate, normal rhythm, normal heart sounds. Absent: systolic murmur, diastolic murmur, rubs, gallop, clicks Rectal exam: Present: hemorrhoids, tenderness Neurological exam: Present: alert Skin exam: Present: warm, dry, intact, normal color. Absent: rash Course Vital Signs 12/07/20 15:07 Temperature 97.9 F Pulse Rate 99 Respiratory 18 Rate Blood Pressure 133/87 O2 Sat by Pulse 99 Oximetry Medical Decision Making - Medical Decision Making Patient was evaluated as we discharged in stable condition patient will be provided prescription for hemorrhoid cream. - Lab Data Lab Results 12/07/20 Range/Units 15:08 Urine Opiates Screen Not Detected (NotDetected) Ur Oxycodone Screen Not Detected (NotDetected) Urine Methadone Screen Not Detected (NotDetected) Ur Propoxyphene Screen Not Detected (NotDetected) Ur Barbiturates Screen Not Detected (NotDetected) U Tricyclic Antidepress Not Detected (NotDetected) Ur Phencyclidine Scrn Not Detected (NotDetected) Ur Amphetamines Screen Not Detected (NotDetected) U Methamphetamines Scrn Not Detected (NotDetected) U Benzodiazepines Scrn Not Detected (NotDetected) Urine Cocaine Screen Not Detected (NotDetected) U Marijuana (THC) Screen Not Detected (NotDetected) Disposition Clinical Impression: Depression, Hemorrhoid Disposition: HOME SELF-CARE Condition: Stable Instructions (If sedation given, give patient instructions): Hemorrhoids (ED) Additional Instructions: Please return to the Emergency Department if symptoms worsen or any other concerns. Prescriptions: Hydrocortisone [Anusol-Hc] 1 applic RECTAL BID #30 gm Is patient prescribed a controlled substance at d/c from ED?: No Referrals: Taina Osman MD [Primary Care Provider] - 1-2 days Time of Disposition: 18:49
[2020-12-07 19:06] VITALS: BP 109/75; PULSE 80; TEMP 98.6
== END 2020-12-07 19:07 | disposition home or self-care (01) ==
LOC: EC 14:59
DX: K64.9 Unspecified hemorrhoids (principal); F32.9 Major depressive disorder, single episode, unspecified; I10 Essential (primary) hypertension; E78.5 Hyperlipidemia, unspecified; J45.909 Unspecified asthma, uncomplicated; F41.9 Anxiety disorder, unspecified; F17.200 Nicotine dependence, unspecified, uncomplicated; F12.90 Cannabis use, unspecified, uncomplicated; Z88.0 Allergy status to penicillin; Z88.1 Allergy status to other antibiotic agents
CPT/HCPCS: 80306; 82075; 99284

== ENCOUNTER 2020-12-10 12:37 | Emergency (ER) | payer OTHER ==
[2020-12-10 13:22] VITALS: TEMP 98
[2020-12-10] MEDS ORDERED: HYDROcodone/APAP 5-325MG 1 EACH TAB PO STA (14:14)
[2020-12-10 14:46] LABS: Basophils % (A) 1 %; Eosinophils # (A) 0.3 k/uL (0-0.7); Eosinophils % (A) 4 %; HCT 41.4 % (39.0-53.0); HGB 14.5 gm/dL (13.0-17.5); Lymphocytes # (A) 1.7 k/uL (1.0-4.8); Lymphocytes % (A) 26 %; MCH 33.3 pg (25.0-35.0); Mean Platelet Volume 7.8; Monocytes # (A) 0.6 k/uL (0-1.0); Monocytes % (A) 9 %; Neutrophils # (A) 3.8 k/uL (1.3-7.7); Neutrophils % (A) 58 %; Platelet Count 291 k/uL (150-450); RBC 4.36 m/uL (4.30-5.90); RDW 13.1 % (11.5-15.5); WBC 6.5 k/uL (3.8-10.6)
[2020-12-10 14:54] LABS: ALT 42 U/L (4-49); AST 40 U/L (17-59); African American GFR (CKD) >90 (>60 ml/min/1.73 sqM); Albumin 3.8 g/dL (3.5-5.0); Alkaline Phosphatase 44 U/L (38-126); Anion Gap 8 mmol/L; Blood Urea Nitrogen 12 mg/dL (9-20); Calcium 9.3 mg/dL (8.4-10.2); Carbon Dioxide 20 mmol/L (22-30); Chloride 109 mmol/L (98-107); Glucose 106 mg/dL (74-99); Non-African American GFR(CKD) >90 (>60 ml/min/1.73 sqM); Sodium 137 mmol/L (137-145); Total Bilirubin 0.5 mg/dL (0.2-1.3); Total Protein 6.8 g/dL (6.3-8.2)
--- NOTE | 2020-12-10 15:51 | ED ---
General Adult HPI - General Chief complaint: GI Bleed Stated complaint: hemorrhoid Source: patient Mode of arrival: ambulatory Limitations: no limitations - History of Present Illness Initial comments: Patient is a 55-year-old male who presents the emergency department with repor marilyn rectal bleeding. Patient states he has a known hemorrhoid for which she was seen previously in our emergency Department for. States he was given prescriptions however he never filled them. States that he started having some bleeding this morning.. He bled through his pants. He is not on any blood thinners. States that it is bright red in color. He denies constipation or diarrhea. He has not been using any medications to the site for his symptoms. No changes in his urination. No abdominal pain. No other alleviating, contractor general building modifying factors - Related Data Home Medications Medication Instructions Recorded Confirmed Albuterol Nebulized [Ventolin 2.5 mg INHALATION RT-QID PRN 07/15/20 12/07/20 Nebulized] Albuterol Sulfate [Proair Hfa] 2 puff INHALATION RT-Q6H PRN 07/15/20 12/07/20 Fenofibrate Nanocrystallized 145 mg PO DAILY 07/15/20 12/07/20 [Fenofibrate] Montelukast [Singulair] 10 mg PO HS 07/15/20 12/07/20 Pravastatin Sodium [Pravachol] 40 mg PO DAILY 07/15/20 12/07/20 Escitalopram [Lexapro] 10 mg PO DAILY 11/29/20 12/07/20 Fluticasone Propionate [Flovent 2 puff INHALATION RT-BID 11/29/20 12/07/20 Hfa 110 mcg] traZODone HCL [Desyrel] 50 mg PO HS 11/29/20 12/07/20 Previous Rx's Medication Instructions Recorded Loratadine [Claritin] 10 mg PO DAILY 30 Days tab 09/29/19 amLODIPine [Norvasc] 10 mg PO DAILY 30 Days tab 09/29/19 Hydrocortisone [Anusol-Hc] 1 applic RECTAL BID #30 gm 12/07/20 Docusate [Colace] 100 mg PO BID #60 12/10/20 Docusate [Colace] 100 mg PO BID #60 caplet 12/10/20 Hydrocortisone [Anusol-Hc] 1 applic RECTAL BID #60 gm 12/10/20 Allergies Allergy/AdvReac Type Severity Reaction Status Date / Time Penicillins Allergy Rash/Hives Verified 12/10/20 13:14 cephalexin monohydrate AdvReac Nausea & Verified 12/10/20 13:14 [From Keflex] Vomiting ergocalciferol (vitamin D2) AdvReac WEAKNESS Verified 12/10/20 13:14 [From Vitamin D2] Review of Systems ROS Statement: Those systems with pertinent positive or pertinent negative responses have been documented in the HPI. ROS Other: All systems not noted in ROS Statement are negative. Past Medical History Past Medical History: Asthma, COPD, Hyperlipidemia, Hypertension History of Any Multi-Drug Resistant Organisms: None Reported Past Surgical History: No Surgical Hx Reported Additional Past Surgical History / Comment(s): L arm Past Anesthesia/Blood Transfusion Reactions: No Reported Reaction Past Psychological History: Anxiety, Depression Smoking Status: Current every day smoker Past Alcohol Use History: Occasional Past Drug Use History: Marijuana - Past Family History Father Family Medical History: Asthma General Exam Limitations: no limitations Course Vital Signs 12/10/20 12/10/20 13:14 14:42 Temperature 98 F Pulse Rate 68 Respiratory 18 18 Rate Blood Pressure 147/79 O2 Sat by Pulse 100 Oximetry Medical Decision Making - Medical Decision Making Upon arrival patient was placed in room 33. Physical exam demonstrates a thrombosed, bleeding external hemorrhoid. I do attempt a rectal exam. Rectal exam demonstrates no gross blood. There is some brown stool. Sample is tainted with surrounding thrombosed hemorrhoid blood. I did recommend completing laboratory studies as the patient did bleed through his pants. He is hematologically stable. Hemoglobin is 14.5. Occult does come back positive however I do believe that this is secondary to cross-contamination. I did discuss diagnosis, differential treatment options. Patient will be given up for Anusol cream and a stool softener. Instructed on their use. Given follow-up information for Dr. Schmidt's office. Instructed to follow-up with them for further treatment options. Patient agreed to this and is discharged home in stable condition - Lab Data Result diagrams: 12/10/20 14:39 12/10/20 14:39 Lab Results 12/10/20 12/10/20 12/10/20 Range/Units 14:23 14:39 14:39 WBC 6.5 (3.8-10.6) k/uL RBC 4.36 (4.30-5.90) m/uL Hgb 14.5 (13.0-17.5) gm/dL Hct 41.4 (39.0-53.0) % MCV 95.0 (80.0-100.0) fL MCH 33.3 (25.0-35.0) pg MCHC 35.0 (31.0-37.0) g/dL RDW 13.1 (11.5-15.5) % Plt Count 291 (150-450) k/uL MPV 7.8 Neutrophils % 58 % Lymphocytes % 26 % Monocytes % 9 % Eosinophils % 4 % Basophils % 1 % Neutrophils # 3.8 (1.3-7.7) k/uL Lymphocytes # 1.7 (1.0-4.8) k/uL Monocytes # 0.6 (0-1.0) k/uL Eosinophils # 0.3 (0-0.7) k/uL Basophils # 0.0 (0-0.2) k/uL Sodium 137 (137-145) mmol/L Potassium 4.0 (3.5-5.1) mmol/L Chloride 109 H (98-107) mmol/L Carbon Dioxide 20 L (22-30) mmol/L Anion Gap 8 mmol/L BUN 12 (9-20) mg/dL Creatinine 0.76 (0.66-1.25) mg/dL Est GFR (CKD-EPI)AfAm >90 (>60 ml/min/1.73 sqM) Est GFR (CKD-EPI)NonAf >90 (>60 ml/min/1.73 sqM) Glucose 106 H (74-99) mg/dL Calcium 9.3 (8.4-10.2) mg/dL Total Bilirubin 0.5 (0.2-1.3) mg/dL AST 40 (17-59) U/L ALT 42 (4-49) U/L Alkaline Phosphatase 44 (38-126) U/L Total Protein 6.8 (6.3-8.2) g/dL Albumin 3.8 (3.5-5.0) g/dL Stool Occult Blood Positive (Negative) Disposition Clinical Impression: Hemorrhoid Disposition: HOME SELF-CARE Condition: Stable Instructions (If sedation given, give patient instructions): Hemorrhoids (ED) Additional Instructions: Use the cream as directed. Take a stool softener twice daily. Follow-up with the surgeon for further treatment options Prescriptions: Hydrocortisone [Anusol-Hc] 1 applic RECTAL BID #60 gm Docusate [Colace] 100 mg PO BID #60 Docusate [Colace] 100 mg PO BID #60 caplet Is patient prescribed a controlled substance at d/c from ED?: No Referrals: Taina Osman MD [Primary Care Provider] - 1-2 days Agusto Nobles MD [STAFF PHYSICIAN] - 1-2 days Time of Disposition: 15:51
[2020-12-10 16:16] VITALS: BP 141/69; PULSE 80; RESP 20
== END 2020-12-10 16:10 | disposition home or self-care (01) ==
LOC: EC 12:37
DX: K64.5 Perianal venous thrombosis (principal); J45.909 Unspecified asthma, uncomplicated; E78.5 Hyperlipidemia, unspecified; I10 Essential (primary) hypertension; F41.9 Anxiety disorder, unspecified; F32.9 Major depressive disorder, single episode, unspecified; F17.200 Nicotine dependence, unspecified, uncomplicated; F12.90 Cannabis use, unspecified, uncomplicated; Z88.0 Allergy status to penicillin; Z88.1 Allergy status to other antibiotic agents
CPT/HCPCS: 36415; 80053; 82272; 85025; 99283